=== PATIENT | male | born 1960 ===

== ENCOUNTER 2021-05-26 11:10 | Outpatient (REF) | payer MEDICARE, MEDICAID, SELFPAY ==
--- NOTE | ~2021-05-26 | XR_ITS ---
EXAMINATION: XR SHOULDER, RIGHT CLINICAL INFORMATION: Pain COMPARISON: None TECHNIQUE: AP external rotation, Grashey, scapular Y, and axillary views of the right shoulder. FINDINGS: There is a question of a lytic lesion in the right proximal humerus/greater tuberosity or possibly old trauma. This is unchanged from topogram from cervical spine CT March 2018. No fracture or dislocation is seen. There is arthritis at the glenohumeral and acromioclavicular joints. Soft tissues are unremarkable. There are old right-sided rib fractures. XR/XR shoulder RT min 2V IMPRESSION: Question lytic lesion in the right proximal humerus/greater tuberosity or old trauma. This appears unchanged from topogram from cervical spine CT March 2018. Arthritis.
--- NOTE | ~2021-05-26 | XR_ITS ---
EXAMINATION: XR RIBS, RIGHT CLINICAL INFORMATION: Pleura diameter. COMPARISON: None TECHNIQUE: 3 views of the right ribs were obtained. FINDINGS: Lungs are clear. No consolidation, pneumothorax, or pleural effusion. The cardiomediastinal silhouette and pulmonary vasculature are normal. Osseous structures are unremarkable. There are multiple old rib fractures visualized. There Is no acute fracture or bony abnormality. The soft tissues are normal. XR/XR ribs RT min 3V w CXR1V IMPRESSION: Unremarkable chest exam. Old right rib healed fractures. No acute rib fractures seen. There is mild spondylosis dorsal spine.
== END 2021-05-26 11:11 | disposition home or self-care (01) ==
LOC: HO.XRAY 11:10
PROVIDERS: PCP Internal Medicine Geriatric Medicine; Visit Provider Internal Medicine Geriatric Medicine
DX: G89.29 Other chronic pain (principal); M25.511 Pain in right shoulder; R07.81 Pleurodynia
CPT/HCPCS: 71101; 73030

== ENCOUNTER 2022-08-02 08:19 | Emergency (ER) | payer OTHER, SELFPAY ==
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
[2022-08-02 08:23] VITALS: BP 130/80; PULSE 75; O2SAT 100
[2022-08-02 08:25] VITALS: BP 130/70; PULSE 87; RESP 18; TEMP 36.2; O2SAT 97; BMI 24.7
[2022-08-02 09:29] VITALS: BP 130/74; PULSE 76; RESP 18; O2SAT 96
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
[2022-08-02 12:00] VITALS: BP 134/67; PULSE 66; RESP 18; O2SAT 96
[2022-08-02] MEDS: Acetaminophen 325 MG TABLET 975 MG PO (12:00)
== END 2022-08-02 12:38 | disposition home or self-care (01) ==
PROVIDERS: Emergency Provider Emergency Medicine; PCP Internal Medicine Geriatric Medicine
DX: S02.2XXA Fracture of nasal bones, initial encounter for closed fracture (principal); M54.50 Low back pain, unspecified; R51.9 Headache, unspecified; M54.2 Cervicalgia; R10.9 Unspecified abdominal pain; M54.6 Pain in thoracic spine; X58.XXXA Exposure to other specified factors, initial encounter; Y93.9 Activity, unspecified; Y92.9 Unspecified place or not applicable; Y99.9 Unspecified external cause status; Z79.899 Other long term (current) drug therapy
CPT/HCPCS: 70450; 71250; 72125; 74176; 99284

== ENCOUNTER 2023-01-29 06:43 | Emergency (ER) | payer OTHER, SELFPAY ==
[2023-01-29 06:49] VITALS: BP 127/78; PULSE 80; O2SAT 100; BMI 23.5
[2023-01-29 06:54] VITALS: BP 122/78; PULSE 76; RESP 18; TEMP 36.9; O2SAT 95
[2023-01-29 07:47] LABS: Appearance Urine Clear; Color Urine Yellow; Glucose Urine UA Negative (Negative); Leukocyte Esterase Urine Trace (Negative); Nitrite Urine Negative (Negative); PH 5.5 (5.0-9.0); Specific Gravity - Urine 1.015 (1.005-1.025); UMIC TRIGGER UACC YES; Urine Blood Negative (Negative); Urine Ketones Trace mg/dL (Negative); Urine Protein Trace mg/dL (Neg-Trace)
[2023-01-29 07:52] LABS: Bacteria Urine None Seen (None Seen); Hyaline Casts Urine 0-2 /LPF (0-2); RBC Urine 0-2 /HPF (0-2); Squamous Epithelial Cell Urine 0-2 /HPF (0-2); WBC Urine 0-5 /HPF (0-5)
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
[2023-01-29 15:28] LABS: Amphetamine Screen Urine Not Detected (Not Detect); Barbiturates, Urine Not Detected (Not Detect); Benzodiazepines Screen Urine Not Detected (Not Detect); Cannabinoid Screen Urine POSITIVE (Not Detect); Cocaine Screen Urine Not Detected (Not Detect); Fentanyl, urine Not Detected (Not Detect); Opiate Screen Urine Not Detected (Not Detect); Phencyclidine Screen Urine Not Detected (Not Detect)
== END 2023-01-29 09:18 | disposition left against medical advice (07) ==
PROVIDERS: Emergency Provider Internal Medicine
DX: F10.129 Alcohol abuse with intoxication, unspecified (principal); Y90.8 Blood alcohol level of 240 mg/100 ml or more; M79.10 Myalgia, unspecified site; I10 Essential (primary) hypertension; E11.9 Type 2 diabetes mellitus without complications; Z79.899 Other long term (current) drug therapy
CPT/HCPCS: 80307; 81001; 99282; 99283

== ENCOUNTER 2023-02-01 00:57 | Inpatient (IN) | payer OTHER, SELFPAY ==
[2023-02-01 01:32] VITALS: BP 138/94; PULSE 92; O2SAT 97; BMI 25.0
--- NOTE | 2023-02-01 01:32 | ECG_ITS ---
Test Reason : DIZZINESS Blood Pressure : / mmHG Vent. Rate : 088 BPM Atrial Rate : 088 BPM P-R Int : 144 ms QRS Dur : 076 ms QT Int : 352 ms P-R-T Axes : 053 -03 029 degrees QTc Int : 425 ms Normal sinus rhythm Normal ECG When compared with ECG of 25-AUG-2019 08:11, No significant change was found Referred By: Cyndie Velez Electronically Signed By:CORINNA HOFFMAN MD
--- NOTE | 2023-02-01 01:33 | ED_ITS ---
HPI - Psych General Chief Complaint: Psychiatric Symptoms Stated Complaint: Dizziness Time Seen by Provider: 02/01/23 01:28 Source: patient Mode of arrival: EMS Limitations: no limitations History of Present Illness HPI Narrative: Patient comes to the emergency room via EMS. Initially, EMS was called by the patient because he reported ?dizziness. EMS explains that the patient had been walking around the [place] for approximately 8 hours. When patient arrived to the emergency room, patient stated that the real reason that he called is because he is feeling suicidal, no homicidal ideation. No specific plans. Denies chest pain or shortness of breath or even dizziness, which was his original complain. Patient denies any head injury, denies falling. Patient admits that he has been drinking alcohol today Related Data Previous Rx's Medication Instructions Recorded amoxicillin 875 mg-potassium 1 tab PO Q12H 10 days #20 tabs 08/02/22 clavulanate 125 mg tablet naproxen 500 mg tablet 500 mg PO BID PRN pain 10 days #20 08/02/22 tabs Allergies Allergy/AdvReac Type Severity Reaction Status Date / Time sertraline [From ZOLOFT] Allergy Mild HEADACHES Unverified 07/11/20 15:40 Review of Systems Review of Systems: Constitutional : No Weight loss, No Fever, No Chills, No Night Sweats, No Fatigue, No Malaise ENT/Mouth : No Hearing loss, No Ear Pain, No Nasal Congestion, No Sinus Pain, No Hoarseness, No sore throat, No Rhinorrhea, No Swallowing Difficulty Eyes: No Eye Pain, No Swelling, No Redness, No Foreign Body, No Discharge, No Vision Changes Cardiovascular : No Chest Pain, No SOB, No Dyspnea on Exertion, No Orthopnea, No Edema, No Palpitations Respiratory : No Cough, No Sputum, No Wheezing, No Smoke Exposure, No Dyspnea Gastrointestinal : No Nausea, No Vomiting, No Diarrhea, No Constipation, No abdominal Pain, No Hematochezia, No Melena Genitourinary : no irregular bleeding, No Dysuria, No Urinary Frequency, No Hematuria, No Urinary Incontinence, No Urgency, No Flank Pain, No Urinary Flow Changes, No Hesitancy Musculoskeletal : No joint pain, No Myalgias, No Joint Swelling Skin : No Skin Lesions, No rash Neuro : No Weakness, No Numbness, No Paresthesias, No Loss of Consciousness, No Dizziness, No Headache Psych : No Anxiety/Panic, complaining of feeling suicidal, no homicidal ideation Heme/Lymph: No Bruising, No Bleeding,No Lymphadenopathy Endocrine : No Polyuria, No Polydipsia, No Temperature Intolerance [facility] Past Medical History Medical History Alcohol abuse Social History Social History Alcohol intake: current Alcohol intake frequency: 3 or more drinks per day Use of substances other than those prescribed or required for medical reasons: No Advance Directives: No Advance Directives Information Provided: Yes Physical Exam Vital Signs: Vital Signs: Last Vital Signs Temp 98.2 F 02/01/23 03:49 Pulse 93 02/01/23 03:49 Resp 14 02/01/23 03:49 BP 122/63 02/01/23 03:49 Pulse Ox 96 02/01/23 03:49 O2 Del Method Room Air 02/01/23 03:49 BMI result Body Mass Index 25.0 Const: Other: Appearance: Alert. Oriented X3. No acute distress. Eyes: Pupils equal, round and reactive to light. ENT: Pharynx normal. Neck: Normal inspection. Neck supple. No lymph nodes noted. No crepitus CVS: Normal heart rate and rhythm. Pulses normal. Normal S1 and S2 Respiratory: No respiratory distress. Breath sounds normal. No Wheezing. No ra les Abdomen: Soft and nontender. No rigidity. No distention. Skin: Skin warm and dry. Normal skin color. Normal skin turgor. Extremities: No lower extremity edema. No Lacerations. No Rash Neuro: Oriented X 3. No motor deficit. No sensory deficit. Moving all extremities. No slurred speech. CN 2 through 12 grossly intact Psych: calm, cooperative, normal affect Course Course Course Narrative: -labs pending -care team consult pending -physician observation status at 01:35 Medical Decision Making Medical Decision Making MDM Narrative: -magnesium is slightly decreased, 1.4, repleted with p.o. magnesium oxide 800 mg -care team pending Lab Data 02/01/23 02:10 02/01/23 02:10 Labs: Lab Results 02/01/23 02/01/23 02/01/23 Range/Units 02:10 02:10 02:10 WBC 7.0 (4.8-10.8) X10*3/uL RBC 4.13 L (4.60-5.80) X10*6/uL Hgb 12.1 L (14.0-18.0) g/dl Hct 36.2 L (42.0-52.0) % MCV 87.7 (80.0-98.0) fL MCH 29.3 (27.0-33.0) pg MCHC 33.4 (31.0-36.0) g/dl RDW 13.1 (11.0-16.0) % Plt Count 250 (160-400) X10*3/uL MPV 9.2 L (9.4-12.4) fL Immature Gran % (Auto) 0.3 (0.0-0.4) % Neut % (Auto) 58.8 (45-73) % Lymph % (Auto) 31.7 (20-40) % [place] % (Auto) 6.9 (2-11) % Eos % (Auto) 1.6 (0-4) % Baso % (Auto) 0.7 (0-2) % Lymph # (Auto) 2.2 (1.2-4.9) X10*3/uL [place] # (Auto) 0.5 (0.1-1.2) X10*3/uL Eos # (Auto) 0.1 (0.0-0.4) X10*3/uL Baso # (Auto) 0.1 (0.0-0.2) X10*3/uL Abs Immat Gran (auto) 0.02 (0.00-0.03) X10*3/uL Absolute Neuts (auto) 4.1 (2.0-8.3) x10*3/uL Absolute Nucleated RBC 0.000 (0.0-0.012) X10*3/uL Nucleated RBC % (auto) 0.0 (0.0-0.2) /100WBC Sodium 142 (135-145) mmol/L Potassium 4.2 (3.3-5.1) mmol/L Chloride 106 (96-108) mmol/L Carbon Dioxide 21 L (22-29) mmol/L Anion Gap 19 (12-20) BUN 24 H (9-16) mg/dL Creatinine 1.46 H (0.5-1.4) mg/dL Estim Creat Clear Calc TNP Estimated GFR 49 Random Glucose 121 H (60-115) mg/dL Calcium 8.8 (8.4-10.2) mg/dL Magnesium 1.4 L* (1.6-2.6) mg/dL Total Bilirubin 0.3 (0.0-1.0) mg/dL Direct Bilirubin < 0.2 (0.0-0.5) mg/dL AST 32 (5-37) U/L ALT 15 (0-40) U/L Alkaline Phosphatase 73 (39-117) U/L Troponin I High Sens 2.9 (<3.5-35.0) ng/L Total Protein 6.5 (6.5-8.0) g/dL Albumin 4.1 (3.5-5.0) g/dL Ethyl Alcohol 122 mg/dL COVID-19 ([facility]) (Negative) COVID-19 Clin Com 02/01/23 Range/Units 02:10 WBC (4.8-10.8) X10*3/uL RBC (4.60-5.80) X10*6/uL Hgb (14.0-18.0) g/dl Hct (42.0-52.0) % MCV (80.0-98.0) fL MCH (27.0-33.0) pg MCHC (31.0-36.0) g/dl RDW (11.0-16.0) % Plt Count (160-400) X10*3/uL MPV (9.4-12.4) fL Immature Gran % (Auto) (0.0-0.4) % Neut % (Auto) (45-73) % Lymph % (Auto) (20-40) % [place] % (Auto) (2-11) % Eos % (Auto) (0-4) % Baso % (Auto) (0-2) % Lymph # (Auto) (1.2-4.9) X10*3/uL [place] # (Auto) (0.1-1.2) X10*3/uL Eos # (Auto) (0.0-0.4) X10*3/uL Baso # (Auto) (0.0-0.2) X10*3/uL Abs Immat Gran (auto) (0.00-0.03) X10*3/uL Absolute Neuts (auto) (2.0-8.3) x10*3/uL Absolute Nucleated RBC (0.0-0.012) X10*3/uL Nucleated RBC % (auto) (0.0-0.2) /100WBC Sodium (135-145) mmol/L Potassium (3.3-5.1) mmol/L Chloride (96-108) mmol/L Carbon Dioxide (22-29) mmol/L Anion Gap (12-20) BUN (9-16) mg/dL Creatinine (0.5-1.4) mg/dL Estim Creat Clear Calc Estimated GFR Random Glucose (60-115) mg/dL Calcium (8.4-10.2) mg/dL Magnesium (1.6-2.6) mg/dL Total Bilirubin (0.0-1.0) mg/dL Direct Bilirubin (0.0-0.5) mg/dL AST (5-37) U/L ALT (0-40) U/L Alkaline Phosphatase (39-117) U/L Troponin I High Sens (<3.5-35.0) ng/L Total Protein (6.5-8.0) g/dL Albumin (3.5-5.0) g/dL Ethyl Alcohol mg/dL COVID-19 ([facility]) Negative (Negative) COVID-19 Clin Com See Note Discharge Plan Discharge Clinical Impression: Alcohol abuse, Suicidal ideation Patient Disposition: Still a Patient Prescriptions: No Action amoxicillin-pot clavulanate 875-125 mg tablet 1 tab PO Q12H 10 Days Qty: 20 0RF naproxen 500 mg tablet 500 mg PO BID PRN (Reason: pain) 10 Days Qty: 20 0RF Interventions: [place]-Suicide Risk Severity Scale Last Done: 02/01/23 01:50
--- OUTSIDE RECORDS SUMMARY | 2023-02-01 01:34 | XMS_ITS | Continuity of Care Document ---
Author Name Unknown Organization [facility] Address Unknown Care Team Providers Care High Pressure Operator Name Role Phone Pavan Zambrano MD, Asaf Yepez Primary Care Ph ysician Encounter [facility] [place] Date(s): 09/10/21 - 10/10/21 [facility] Attending Physician: AdmPrincess dow Admitting Physician: Princess Rudolph Referring Physician: AdmtrPrincess Allergies, Adverse Reactions, Alerts Substance Reaction Severity Status Zoloft Unknown Active Immunizations Given and Recorded Vaccine Date Status Refusal Reason influenza virus vaccine, inactivated 08/31/21 Give n influenza virus vaccine, inactivated 10/06/16 Lencho rded influenza virus vaccine, inactivated 08/08/10 Lencho rded tetanus/diphtheria/pertussis, acel(Tdap) 10/06/16 Recorded tetanus-diphtheria toxoids (Td) 11/04/10 Given tetanus-diphtheria toxoids (Td) 11/28/07 Recorded Hepatitis A-Hepatitis B Vaccine 11/05/09 Recorded Hepatitis A-Hepatitis B Vaccine 09/17/09 Recorded pneumococcal 23-valent vaccine 05/17/09 Recorded Measles/Mumps/Rubella Virus Vaccine 10/28/07 Recor ded Medications Aspirin 0 Refills, Maintenance Start Date: 11/18/10 Status: Ordered atorvastatin 10 mg oral tablet TAKE 1 TABLET BY MOUTH EVERY DAY Start Date: 08/30/21 Status: Ordered atorvastatin 10 mg oral tablet 1 tablet = 10 mg, By Mouth, Daily, # 30 tablet, 0 Refills, Maintenance, 08/30/21 12:53:00 EDT, Partial fill upon patient request if the prescription is for a schedule II opioid drug. Start Date: 08/30/21 Status: Ordered celecoxib 200 mg oral capsule TAKE 1 CAPSULE BY MOUTH EVERY DAY NEEDED Start Date: 08/30/21 Status: Ordered chlorproMAZINE 50 mg oral tablet TAKE 1 TABLET BY MOUTH AT BEDTIME Start Date: 08/30/21 Status: Ordered chlorproMAZINE 50 mg oral tablet TAKE 1 TABLET BY MOUTH AT BEDTIME Start Date: 08/30/21 Status: Ordered Colace sodium 100 mg oral capsule 1 capsule = 100 mg, By Mouth, 2 times a day, PRN for constipation, # 20 capsule, 0 Refills, Maintenance, Capsule Start Date: 12/01/10 Status: Ordered Crutches See Instructions, # 1 application, Refills 0, Tot. Refills 0, Maintenance, Use for comfort, 06/16/10 7:46:07 Start Date: 06/16/10 Status: Ordered docusate sodium 100 mg oral capsule 1 capsule = 100 mg, By Mouth, 2 times a day, # 28 capsule, 0 Refills, Maintenance, Capsule Start Date: 03/13/12 Stop Date: 03/27/12 Status: Ordered fluoxetine 15 mg oral tablet 2 tablet = 30 mg, By Mouth, Daily in AM, # 28 tablet, 1 Refills, Maintenance, Tablet Start Date: 06/07/12 Stop Date: 07/05/12 Status: Ordered FLUoxetine 20 mg oral capsule TAKE 1 CAPSULE BY MOUTH EVERY MORNING Start Date: 08/30/21 Status: Ordered FLUoxetine 20 mg oral capsule TAKE 1 CAPSULE BY MOUTH EVERY MORNING Start Date: 08/30/21 Status: Ordered folic acid 1 mg oral tablet 1 tablet = 1 mg, By Mouth, Daily, # 14 tablet, 1 Refills, Maintenance, Tablet Start Date: 06/07/12 Stop Date: 07/05/12 Status: Ordered gabapentin 100 mg oral capsule 100 mg, 1, capsule, By Mouth, 3 times a day, # 90 capsule, Refills 0, Tot. Refills 0, Maintenance, 09/02/21 14:49:00 EST, Route to Pharmacy Electronically, [facility], Partial fill uponpatient request if the prescription is for a schedu... Start Date: 09/02/21 Stop Date: 10/02/21 Status: Ordered Insulin Aspart Subcutaneous Infusion, mL, 0 Refills, Maintenance Start Date: 11/18/10 Status: Ordered insulin aspart-insulin aspart protamine 30 u-70 u/ml subcutaneous suspension = 10 units, Subcutaneous Injection, 2 times a day, # 10 mL, 0 Refills, Maintenance, Suspension Start Date: 03/12/12 Status: Ordered lisinopril 20 mg oral tablet 1 tablet = 20 mg, By Mouth, Daily, # 14 tablet, 1 Refills, Maintenance, Tablet Start Date: 06/07/12 Stop Date: 07/05/12 Status: Ordered lisinopril 20 mg oral tablet TAKE 1 TABLET BY MOUTH ONCE DAILY Start Date: 08/30/21 Status: Ordered lisinopril 20 mg oral tablet TAKE 1 TABLET BY MOUTH ONCE DAILY Start Date: 08/30/21 Status: Ordered melatonin 5 mg tablet TAKE 2 TABLETS BY MOUTH ONCE DAILY WITH MEALS Start Date: 08/30/21 Status: Ordered melatonin 5 mg tablet TAKE 2 TABLETS BY MOUTH ONCE DAILY WITH MEALS Start Date: 08/30/21 Status: Ordered melatonin 5 mg tablet TAKE 2 TABLETS BY MOUTH ONCE DAILY WITH MEALS Start Date: 08/30/21 Status: Ordered meloxicam 7.5 mg oral tablet TAKE 1 TABLET BY MOUTH EVERY DAY Start Date: 08/30/21 Status: Ordered metFORMIN 1000 mg oral tablet TAKE 1 TABLET BY MOUTH TWICE DAILY IN THE MORNING AND IN THE EVENING WITH MEALS Start Date: 08/30/21 Status: Ordered metFORMIN 1000 mg oral tablet TAKE 1 TABLET BY MOUTH TWICE DAILY IN THE MORNING AND IN THE EVENING WITH MEALS Start Date: 08/30/21 Status: Ordered mirtazapine 7.5 mg oral tablet TAKE 1 TABLET BY MOUTH AT BEDTIME Start Date: 08/30/21 Status: Ordered mirtazapine 7.5 mg oral tablet TAKE 1 TABLET BY MOUTH AT BEDTIME Start Date: 08/30/21 Status: Ordered multivitamin Vitamin B Complex oral tablet 1 tablet, By Mouth, Daily in AM, # 30 tablet, 0 Refills, Maintenance, Tablet Start Date: 09/28/10 Stop Date: 10/28/10 Status: Ordered omeprazole 20 mg oral enteric coated capsule TAKE 1 CAPSULE BY MOUTH EVERY DAY 30-60 MINUTES BEFORE A MEAL Start Date: 08/30/21 Status: Ordered omeprazole 20 mg oral enteric coated capsule TAKE 1 CAPSULE BY MOUTH EVERY DAY 30-60 MINUTES BEFORE A MEAL Start Date: 08/30/21 Status: Ordered quetiapine 50 mg oral tablet 1 tablet = 50 mg, By Mouth, Daily at bedtime, # 14 tablet, 1 Refills, Maintenance, Tablet Start Date: 06/07/12 Stop Date: 07/05/12 Status: Ordered simvastatin 40 mg oral tablet 1 tablet = 40 mg, By Mouth, Daily at bedtime, 0 Refills, Maintenance Start Date: 03/12/12 Status: Ordered Vitamin B-12 1000 mcg oral tablet TAKE 1 TABLET BY MOUTH EVERY DAY Start Date: 08/30/21 Status: Ordered Vitamin B-12 1000 mcg oral tablet 1,000 mcg, 1, tablet, By Mouth, Daily, # 30 tablet, Refills 0, Maintenance, 08/30/21 12:53:00 EDT, Partial fill upon patient request if the prescription is for a schedule II opioid drug. Start Date: 08/30/21 Status: Ordered Vince See Instructions, # 1 each, Maintenance, rolling vince, 09/02/21 14:58:00 EST, Supply Start Date: 09/02/21 Status: Ordered zolpidem 10 mg oral tablet 1 tablet = 10 mg, By Mouth, Daily at bedtime, PRN for sleep, 0 Refills, Maintenance, Tablet Start Date: 03/12/12 Status: Ordered
--- OUTSIDE RECORDS SUMMARY | 2023-02-01 01:34 | XMS_ITS | Continuity of Care Document ---
Author Name Unknown Organization [facility] ter Address [address] [place] [id number]- Care Team Providers Care Mail Sorter And Delivery Name Role Phone Pavan Zambrano MD, Asaf Yepez Primary Care Ph ysician [place] [facility] [place] - 05/25/[address] [address]- Encounter Diagnosis Alcohol intoxication(Final) - 05/25/22 Discharge Disposition: A-D/C Home Attending Physician: Jn Raines DO Admitting Physician: Jn Raines DO Referring Physician: Not on Staff, Referring MD Allergies, Adverse Reactions, Alerts Substance Reaction Severity Status Zoloft Unknown Active Immunizations Given and Recorded Vaccine Date Status Refusal Reason influenza virus vaccine, inactivated 08/31/21 Give n influenza virus vaccine, inactivated 10/06/16 Elncho rded influenza virus vaccine, inactivated 08/08/10 Lencho [...] 09/02/21 14:49:00 EST, Route to Pharmacy Electronically, [facility], Partial fill uponpatient request [...] opioid drug. Start Date: 08/30/21 Status: Ordered Walker See Instructions, # 1 each, Maintenance, rolling walker, 09/02/21 14:58:00 EST, Supply Start Date: 09/02/21 Status: Ordered zolpidem 10 mg oral tablet 1 tablet = 10 mg, By Mouth, Daily at bedtime, PRN for sleep, 0 Refills, Maintenance, Tablet Start Date: 03/12/12 Status: Ordered Vital Signs Most recent to oldest [Reference Range]: 1 2 Height 171 cm (05/25/22 5:17 AM) 171 cm (05/25/22 1:27 AM) Weight 82.8 kg (05/25/22 5:17 AM) 82.8 kg (05/25/22:27 AM) Oxygen Saturation [94-100 %] 93 % *L* (05/25/22 5:17 AM) 95 % (05/25/22: AM) Pulse Rate [55-90 bpm] 70 bpm (05/25/22 5:17 AM) 88 bpm (05/25/22:27 AM) Body Mass Index [18.5-24.99] 28.32 *H* (05/25/22 5: AM) Blood Pressure [90-138/55-84 mm Hg] 120/ 71mm Hg (05/25/22 5:17 AM) 115/68mm Hg (05/25/22 1:27 AM) Respiratory Rate [16-30 br/min] 20 br/mi n (05/25/22 5:17 AM) 21 br/min (05/25/22 1:27 AM) Temperature [96.8-100.4 DegF] 98.2 DegF (05/25/22 5:17 AM) 98.1 DegF (05/25/22 1:27 AM) Mode of Delivery (Oxygen) Room air (05/25/22 5:17 AM) Room air (05/25/22 1:27 AM) Blood pressure sites Arm, right (05/25/22 5:17 AM) Temperature Route Oral (05/25/22 5:17 AM) Oral (05/25/22 1:27 AM)
--- OUTSIDE RECORDS SUMMARY | 2023-02-01 01:34 | XMS_ITS | Continuity of Care Document ---
Author Name Unknown Organization [facility] ter Address [address] [place] [address]- Care Team Providers Care Remnants Cutter Name Role Phone Asaf Frazier MD Primary Care Ph ysician Encounter [facility] [place] Date(s): 04/12/21 - 04/14/[address] [address]- Encounter Diagnosis Suicide ideation(Final) - 04/12/21 Acute psychosis(Final) - 04/12/21 Sinus tachycardia(Final) - 04/12/21 Suicide attempt(Final) - 04/12/21 Discharge Disposition: A-D/C Home Attending Physician: Steven Kearney MD Admitting Physician: Steven Kearney MD Referring Physician: Not on Staff, Referring MD Allergies, Adverse Reactions, Alerts Substance Reaction Severity Status NKA Active Medications lisinopril 20 mg oral tablet 20 mg, Tablet, By Mouth, 04/14/21 9:00:00 EDT Start Date: 04/14/21 Stop Date: 04/14/21 Status: Completed Vital Signs Most recent to oldest [Reference Range]: 1 2 3 Oxygen Saturation [94-100 %] 98 % (04/14/21 7:45 AM) 98 % (04/14/21 2:20 AM) 98 % (04/13/21 1:48 PM) Pulse Rate [55-90 bpm] 76 bpm (04/14/21 7:45 AM) 68 bpm (04/14/21 2:20 AM) 83 bpm (04/13/21 1:48 PM) Blood Pressure [90-138/55-84 mm Hg] 135/82mm Hg (04/14/21 8:35 AM) 135/82mm Hg (04/14/21 7:45 AM) 141/79mm Hg *H* (04/14/21 2:20 AM) Respiratory Rate [16-30 br/min] 16 br/min (04/14/21 7:45 AM) 16 br/min (04/14/21 2:20 AM) 18 br/min (04/13/21 1:48 PM) Temperature [96.8-100.4 DegF] 98.6 DegF (04/14/21 7:45 AM) 98.3 DegF (04/14/21 2:20 AM) 98.2 DegF (04/13/21 1:48 PM) Mode of Delivery (Oxygen) Room air (04/14/21 7:45 AM) Room air (04/14/21 2:20 AM) Room air (04/13/21 1:48 PM) Blood pressure sites Arm, right (04/14/21 7:45 AM) Arm, right (04/14/21 2:20 AM) Arm, right (04/13/21 1:48 PM) Temperature Route Oral (04/14/21 7:45 AM) Oral (04/14/21 2:20 AM) Oral (04/13/21 1:48 PM)
--- OUTSIDE RECORDS SUMMARY | 2023-02-01 01:34 | XMS_ITS | Continuity of Care Document ---
Author Name Unknown Organization [facility] ter Address [address] [place] [id number]- Care Team Providers Care Bar Waiter/Waitress Name Role Phone Pavan Zambrano MD, Asaf Yepez Primary Care Ph ysician Encounter [facility] [place] Date(s): 09/14/21 - 09/15/[address] [address]- Encounter Diagnosis Alcohol intoxication(Final) - 09/14/21 Discharge Disposition: A-D/C Home Attending Physician: Spring Bear MD Admitting Physician: Spring Bear MD Referring Physician: Not on Staff, Referring [...] Measles/Mumps/Rubella Virus Vaccine 10/28/07 Recor ded Medications acetaminophen 325 mg oral tablet 650 mg, By Mouth, Every 4 hours, for 30 days, # 360 tablet, Refills 0, Tot. Refills 0, Acute 10/02/21 14:49:00 EST, 09/02/21 14:49:00 EST, Route to Pharmacy Electronically, [facility], Partial fill upon patient request if the prescriptio... Start Date: 09/02/21 Stop Date: 10/02/21 Status: Ordered Aspirin 0 Refills, Maintenance Start Date: 11/18/10 [...] 09/02/21 14:49:00 EST, Route to Pharmacy Electronically, [facility], Partial fill uponpatient request if the prescription is for a schedu... Start Date: 09/02/21 Stop Date: 10/02/21 Status: Ordered ibuprofen 600 mg oral tablet 600 mg, 1, tablet, By Mouth, 3 times a day, for 30 days, # 90 tablet, Refills 0, Tot. Refills 0, Acute 10/02/21 14:49:00 EST, 09/02/21 14:49:00 EST, Route to Pharmacy Electronically, [facility], Partial fill upon patient request if the p... Start Date: 09/02/21 Stop Date: 10/02/21 Status: [...] opioid drug. Start Date: 08/30/21 Status: Ordered Joseph See Instructions, # 1 each, Maintenance, rolling walker, 09/02/21 14:58:00 EST, Supply Start Date: 09/02/21 Status: Ordered zolpidem 10 mg oral tablet 1 tablet = 10 mg, By Mouth, Daily at bedtime, PRN for sleep, 0 Refills, Maintenance, Tablet Start Date: 03/12/12 Status: Ordered Vital Signs Most recent to oldest [Reference Range]: 1 2 3 Oxygen Saturation [94-100 %] 98 % (09/15/21 2:08 AM) 97 % (09/14/21 11:08 PM) 95 % (09/14/21 6:50 PM) Pulse Rate [55-90 bpm] 79 bpm (09/15/21 2:08 AM) 89 bpm (09/14/21 11:08 PM) 80 bpm (09/14/21 7:18 PM) Blood Pressure [90-138/55-84 mm Hg] 122/74mm Hg (09/15/21 2:08 AM) 123/89mm Hg (09/14/21 11:08 PM) 123/80mm Hg (09/14/21 7:18 PM) Respiratory Rate [16-30 br/min] 18 br/min (09/15/21 2:08 AM) 18 br/min (09/14/21 11:08 PM) 22 br/min (09/14/21 6:50 PM) Temperature [96.8-100.4 DegF] 98.8 DegF (09/15/21 2:08 AM) 99.0 DegF (09/14/21 6:50 PM) Mode of Delivery (Oxygen) Room air (09/15/21 2:08 AM) Room air (09/14/21 11:08 PM) Room air (09/14/21 6:50 PM) Blood pressure sites Arm, right (09/14/21 6:50 PM) Temperature Route Axillary (09/15/21 2:08 AM) Oral (09/14/21 6:50 PM)
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
--- OUTSIDE RECORDS SUMMARY | 2023-02-01 01:35 | XMS_ITS | Continuity of Care Document ---
Author Name Unknown Organization [facility] Address Unknown Care Team Providers Care Nylon Hot Wire Cutter Name Role Phone Pavan Zambrano MD, Asaf Yepez Primary Care Ph ysician [place] [facility] [place](s): 09/10/21 - 10/10/21 [facility] Attending Physician: AdmPrincess dow Admitting Physician: AdmtrPrincess Referring Physician: Admtr, Ar8 Allergies, Adverse Reactions, Alerts Substance Reaction Severity [...] 09/02/21 14:49:00 EST, Route to Pharmacy Electronically, [facility], Partial fill uponpatient [...]
[2023-02-01 02:16] LABS: Basophils Absolute Auto 0.1 X10*3/uL (0.0-0.2); Basophils Percent Auto 0.7 % (0-2); Eosinophils Absolute Auto 0.1 X10*3/uL (0.0-0.4); Eosinophils Percent Auto 1.6 % (0-4); Hematocrit 36.2 % (42.0-52.0); Hemoglobin 12.1 g/dl (14.0-18.0); Imm Gran Abs Auto 0.02 X10*3/uL (0.00-0.03); Imm Gran Pct Auto 0.3 % (0.0-0.4); Lymphocytes Absolute Auto 2.2 X10*3/uL (1.2-4.9); Lymphocytes Percent Auto 31.7 % (20-40); MANUAL DIFF FLAG NO; Mean Corpuscular HGB Conc 33.4 g/dl (31.0-36.0); Mean Corpuscular Hemoglobin 29.3 pg (27.0-33.0); Mean Corpuscular Volume 87.7 fL (80.0-98.0); Mean Platelet Volume 9.2 fL (9.4-12.4); Monocytes Absolute Auto 0.5 X10*3/uL (0.1-1.2); Monocytes Percent Auto 6.9 % (2-11); Neutrophils Absolute Auto 4.1 x10*3/uL (2.0-8.3); Neutrophils Percent Auto 58.8 % (45-73); Platelet Count 250 X10*3/uL (160-400); Red Blood Count 4.13 X10*6/uL (4.60-5.80); Red Cell Distribution Width 13.1 % (11.0-16.0)
[2023-02-01 02:26] LABS: COVID-19 Test Negative (Negative); IDNOW Serial# BCCEAD1C
[2023-02-01 02:35] LABS: Troponin-I High Sensitivity 2.9 ng/L (<3.5-35.0)
[2023-02-01 02:36] LABS: Alanine Aminotransferase 15 U/L (0-40); Albumin Level 4.1 g/dL (3.5-5.0); Alkaline Phosphatase 73 U/L (39-117); Anion Gap 19 (12-20); Aspartate Amino Transferase 32 U/L (5-37); Bilirubin Direct < 0.2 mg/dL (0.0-0.5); Bilirubin Total 0.3 mg/dL (0.0-1.0); Blood Urea Nitrogen 24 mg/dL (9-16); Calcium 8.8 mg/dL (8.4-10.2); Carbon Dioxide 21 mmol/L (22-29); Chloride 106 mmol/L (96-108); Estimated Glomerular Filt Rate 49; Ethanol 122 mg/dL; Glucose Random 121 mg/dL (60-115); Magnesium 1.4 mg/dL (1.6-2.6); Potassium 4.2 mmol/L (3.3-5.1); Sodium 142 mmol/L (135-145); Total Protein 6.5 g/dL (6.5-8.0)
--- NOTE | 2023-02-01 02:39 | PC.NURSE ---
pt c/o dizziness and SI, ETOH+
[2023-02-01 03:49] VITALS: BP 122/63; PULSE 93; RESP 14; TEMP 36.8; O2SAT 96
--- NOTE | 2023-02-01 04:52 | MHC.EDTECH ---
pt belomgimgs placed in laundry closet
[2023-02-01] MEDS: Magnesium Oxide 400 MG TABLET 800 MG PO (05:45)
[2023-02-01 06:19] LABS: Appearance Urine Clear; Color Urine Yellow; Glucose Urine UA Negative (Negative); Leukocyte Esterase Urine Small (1+) (Negative); Nitrite Urine Negative (Negative); PH 5.5 (5.0-9.0); UMIC TRIGGER UACC YES; Urine Blood Negative (Negative); Urine Ketones Trace mg/dL (Negative); Urine Protein 30 (1+) mg/dL (Neg-Trace)
[2023-02-01 06:32] LABS: Amphetamine Screen Urine Not Detected (Not Detect); Barbiturates, Urine Not Detected (Not Detect); Benzodiazepines Screen Urine Not Detected (Not Detect); Cannabinoid Screen Urine Not Detected (Not Detect); Cocaine Screen Urine Not Detected (Not Detect); Fentanyl, urine Not Detected (Not Detect); Opiate Screen Urine Not Detected (Not Detect); Phencyclidine Screen Urine Not Detected (Not Detect)
[2023-02-01 06:40] LABS: Bacteria Urine None Seen (None Seen); RBC Urine 0-2 /HPF (0-2); UACC Culture Trigger YES
[2023-02-01 06:47] VITALS: BP 100/54; PULSE 68; RESP 14; TEMP 36.6; O2SAT 94
[2023-02-01 10:50] LABS: Anion Gap 15 (12-20); Blood Urea Nitrogen 22 mg/dL (9-16); Calcium 8.8 mg/dL (8.4-10.2); Carbon Dioxide 25 mmol/L (22-29); Chloride 106 mmol/L (96-108); Creatinine Clr Calc Pharmacy 76.5; Estimated Glomerular Filt Rate > 60; Glucose Random 134 mg/dL (60-115); Potassium 4.5 mmol/L (3.3-5.1); Sodium 141 mmol/L (135-145)
[2023-02-01 11:26] VITALS: BP 125/79; PULSE 63; RESP 16; TEMP 36.8; O2SAT 97
--- NOTE | 2023-02-01 11:26 | PC.NURSE ---
Assumed care of pt, 1:1 sitter at bedside. Pt sleeping at this time, in nad, resp even, nonlaboured.
--- NOTE | 2023-02-01 13:18 | PC.NURSE ---
PT ENDORSES RECENT SI WITHOUT A PLAN, DISTANT HX OF ATTEMPT. RECENT INC DEPRESSION R/T INC ETOH USE. QUIET AT THIS TIME, COOPERATIVE, ANSWERING QUESTIONS APPROPRIATELY. REFUSING LUNCH, REPORTS RECENT REDUCED APETITE. MED REC COMPLETED. SEEN BY CARE TEAM.
[2023-02-01] MEDS: FLUoxetine HCl 20 MG CAPSULE PO (15:15)
[2023-02-01] MEDS: Cyanocobalamin (Vitamin B-12) 1,000 MCG TABLET 1000 MCG PO (15:15)
[2023-02-01 15:46] VITALS: BP 131/81; PULSE 66; RESP 16; TEMP 36.7; O2SAT 98
--- NOTE | 2023-02-01 18:07 | MHC.CARE ---
Patient's information faxed to [facility], they do not have beds today. Recovery Team will continue bedsearch, alternatively patient can be presented to [facility], they do have beds available tonight--fax form.
--- NOTE | 2023-02-01 19:00 | MHC.EDTECH ---
pt ate 100 % of super ,drank 720 ml fluids ,pt sleeping ,sitter at bedside .
--- NOTE | 2023-02-01 20:00 | MHC.CARE ---
Clinician checked in with Milind who reported not wanting to go to respite. He reported wanting to go to Detox then go to [facility]
--- NOTE | 2023-02-01 20:30 | PC.NURSE ---
spoke with care team, detox bed search will continue tomorrow. pt requesting detox, not respite.
[2023-02-01] MEDS: diphenhydrAMINE HCL 25 MG CAPSULE 50 MG PO (21:14)
[2023-02-01] MEDS: metFORMIN HCl 1,000 MG TABLET 1000 MG PO (21:15)
[2023-02-01] MEDS: chlorproMAZINE HCl 100 MG TABLET PO (21:15)
[2023-02-01 22:02] LABS: Glucose, Whole Blood 157 mg/dL (60-115)
[2023-02-02 06:02] VITALS: BP 104/73; PULSE 94; RESP 18; TEMP 36.2; O2SAT 96
--- NOTE | 2023-02-02 06:30 | PC.NURSE ---
Patient slept through the night, no distress observed/reported, Latvian speaking primarily, care team saw the patient, referred to recovery team for detox help, patient will be assessed by recovery team, med rec completed/pending provider's approval, POC at 2158 is 157, vss, behavior appropriate, will continue to monitor.
[2023-02-02 09:20] VITALS: BP 144/92; PULSE 130; RESP 20; TEMP 36.7; O2SAT 96
[2023-02-02] MEDS: metFORMIN HCl 1,000 MG TABLET 1000 MG PO ×2 (09:29→20:30)
[2023-02-02] MEDS: lisinopriL 20 MG TABLET PO (09:29)
[2023-02-02] MEDS: Omeprazole 20 MG CAPSULE.DR PO (09:30)
[2023-02-02] MEDS: Cyanocobalamin (Vitamin B-12) 1,000 MCG TABLET 1000 MCG PO (09:30)
[2023-02-02] MEDS: FLUoxetine HCl 20 MG CAPSULE PO (09:30)
[2023-02-02] MEDS: Atorvastatin Calcium 10 MG TABLET PO (09:30)
--- NOTE | 2023-02-02 13:17 | PC.NURSE ---
Pt reporting homelessness with feelings of SI. Ate meals. Sleeping. No dangerous behaviors noted.
--- NOTE | 2023-02-02 13:46 | MHC.RECOVSUP ---
Referral sent to [facility].
--- NOTE | 2023-02-02 16:22 | MHC.RECOVSUP ---
Pt declined from [facility] due to SI during phone screen. Care team aware.
[2023-02-02] MEDS: chlorproMAZINE HCl 100 MG TABLET PO (20:30)
[2023-02-02] MEDS: diphenhydrAMINE HCL 25 MG CAPSULE 50 MG PO (20:30)
[2023-02-03 06:33] VITALS: BP 90/54; PULSE 76; RESP 17; TEMP 36.2; O2SAT 97
--- NOTE | 2023-02-03 06:50 | PC.NURSE ---
Patient slept through the night, no distress observed/reported, Upper Sorbian speaking primarily, medication compliant, disposition per care team is section 12 inpatient bed search, behavior non concerning, will continue to monitor.
[2023-02-03 07:43] VITALS: BP 116/78; PULSE 116; RESP 15; TEMP 36.6; O2SAT 98
[2023-02-03] MEDS: lisinopriL 20 MG TABLET PO (09:51)
[2023-02-03] MEDS: Atorvastatin Calcium 10 MG TABLET PO (09:51)
[2023-02-03] MEDS: FLUoxetine HCl 20 MG CAPSULE PO (09:51)
[2023-02-03] MEDS: Omeprazole 20 MG CAPSULE.DR PO (09:51)
[2023-02-03] MEDS: metFORMIN HCl 1,000 MG TABLET 1000 MG PO ×2 (09:51→21:22)
[2023-02-03] MEDS: Cyanocobalamin (Vitamin B-12) 1,000 MCG TABLET 1000 MCG PO (09:51)
--- NOTE | 2023-02-03 09:57 | PC.NURSE ---
Pt resting in bed, respirations even and unlabored. Plan for admission today to [facility]. Medicated per the DEC. Pt states feeling unwell and reporting depression.
[2023-02-03 15:30] VITALS: BP 112/77; PULSE 114; RESP 18; TEMP 36.4; O2SAT 96
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
[2023-02-03 18:55] VITALS: BMI 24.7
[2023-02-03] MEDS: diphenhydrAMINE HCL 25 MG CAPSULE 50 MG PO (21:22)
[2023-02-03] MEDS: chlorproMAZINE HCl 100 MG TABLET PO (21:22)
[2023-02-03] MEDS: Acetaminophen 325 MG TABLET 650 MG PO (21:23)
[2023-02-04 07:00] VITALS: BMI 24.7
[2023-02-04 09:09] VITALS: BP 113/71; PULSE 101; RESP 20; TEMP 36.4; O2SAT 94
[2023-02-04] MEDS: lisinopriL 20 MG TABLET PO (09:10)
[2023-02-04] MEDS: Atorvastatin Calcium 10 MG TABLET PO (09:11)
[2023-02-04] MEDS: Omeprazole 20 MG CAPSULE.DR PO (09:11)
[2023-02-04] MEDS: Cyanocobalamin (Vitamin B-12) 1,000 MCG TABLET 1000 MCG PO (09:11)
[2023-02-04] MEDS: FLUoxetine HCl 20 MG CAPSULE PO (09:12)
[2023-02-04] MEDS: metFORMIN HCl 1,000 MG TABLET 1000 MG PO ×2 (09:12→21:04)
[2023-02-04 09:38] LABS: Estimated Average Glucose 137 mg/dL; Hemoglobin A1c % 6.4 %
[2023-02-04 11:33] LABS: Alanine Aminotransferase 18 U/L (0-40); Albumin Level 3.6 g/dL (3.5-5.0); Alkaline Phosphatase 79 U/L (39-117); Aspartate Amino Transferase 19 U/L (5-37); Bilirubin Direct 0.1 mg/dL (0.0-0.5); Bilirubin Total 0.3 mg/dL (0.0-1.0); Cholesterol 129 mg/dL; HDL Cholesterol 39 mg/dL; LDL Cholesterol Calculated 58 mg/dl; Total Protein 5.7 g/dL (6.5-8.0); Triglycerides 163 mg/dL
[2023-02-04 12:01] LABS: Folate 6.1 ng/mL (> or = 4.0); Free T4 (Free Thyroxine) 1.03 ng/dL (0.71-1.85); Vitamin B12 1934 pg/mL (200-900)
--- NOTE | 2023-02-04 15:14 | P.HPPS_ITS ---
HPI Date of Service: 02/04/23 Chief Complaint: SI/depression HPI Narrative: pt released from [facility] last month (01/15/23). ex-GF let him stay with her but said he had to leave after 2 weeks. he began drinking right away. prior to admission he states he attempted to overdose on some medications, but she wouldn't allow him to have the medications. he had urges to cut himself, and he decided to call 911 rather than do that. the police came and brought him to the hospital. he is now homeless. per CARE team lindsey, pt contacted 911 11/26 SI and was intoxicated and circumambulating the [employer] station for 8 hours prior to calling. reported to CARE team staff he hears AH if he doesn't take his meds. takes thorazine 50 and prozac 20. on interview with , pt agreeable to continue thorazine 50 at HS and to increase prozac from 20 mg daily to 40 for depression and anxiety. will restart naltrexone on wednesday and continue with CIWA-driven ativan detox. Past Psychiatric History: hosps: about 8 prior SA: reports one attempt via hanging in 1994 SIB: h/o cutting since 1992, through about 2 months ago. outpt Tx: has a therspit but hasn't seen her recently. no prescriber since getting out of intermediate last month. Medical Evaluation Reviewed: Yes [facility] Medical History Alcohol abuse Narrative: DM GERD lipids HTN arthritis Family History: father, brothers - bipolar disorder, schizophrenia Social History: got out of intermediate last month after a 6 month incarceration. homeless. Substance History: alcohol - every other day, 20-25 nips. cannabis - occasional tobacco - 1 ppd denies use of other substances reports h/o detoxes and rehabs Trauma History: found his father having completed suicide, hanged himself. Diagnostics Vital Signs (24Hr): Vital Signs - 24 hr 02/03/23 15:30 02/04/23 09:09 Temperature 97.5 F 97.6 F Pulse Rate 114 H 101 H Respiratory Rate 18 20 Blood Pressure 112/77 113/71 Pulse Oximetry 96 94 Oxygen Delivery Method Room Air Room Air BMI result Body Mass Index 24.7 Labs 02/01/23 02:10 02/01/23 10:09 Labs: Laboratory Results - last 48 hr 02/04/23 02/04/23 08:45 11:00 Estimat Average Glucose 137 Hemoglobin A1c % 6.4 Total Bilirubin 0.3 Direct Bilirubin 0.1 AST 19 ALT 18 Alkaline Phosphatase 79 Total Protein 5.7 L Albumin 3.6 Triglycerides 163 Cholesterol 129 LDL Cholesterol, Calc 58 HDL Cholesterol 39 Vitamin B12 1934 H Folate 6.1 TSH 0.80 Free T4 1.03 Meds/Allergies Meds Home Medications Medication Instructions Recorded Confirmed Type chlorpromazine 100 mg tablet 100 mg PO BEDTIME 02/01/23 02/01/23 History cyanocobalamin (vitamin B-12) 1,000 mcg PO QAM 02/01/23 02/01/23 History 1,000 mcg tablet diphenhydramine HCl 50 mg capsule 50 mg PO BEDTIME 02/01/23 02/01/23 History (Banophen) fluoxetine 20 mg capsule 20 mg PO QAM 02/01/23 02/01/23 History lisinopril 20 mg tablet 20 mg PO DAILY 02/01/23 02/01/23 History metformin 1,000 mg tablet 1,000 mg PO BID 02/01/23 02/01/23 History pantoprazole 40 mg tablet,delayed 40 mg PO DAILY 02/01/23 02/01/23 History release simvastatin 20 mg tablet 20 mg PO DAILY 02/01/23 02/01/23 History Allergies Allergies Allergy/AdvReac Type Severity Reaction Status Date / Time sertraline [From ZOLOFT] Allergy Mild HEADACHES Unverified 07/11/20 15:40 Mental Status Exam Mental Status Exam Narrative: calm, cooperative, lithuanian speaking only. street clothes, adequately dressed and groomed. no PMA/PMR. cooperative. speech soft and mildly slowed, monotone. thoughts linear and logical. affect constricted, normo-intense, non- labile. mood a little better. denies SI/SIBI/HI/AH. reports AH in the evening/NOC. Assessment & Plan Assessment & Plan (1) Alcohol abuse: Status: Acute Code(s): F10.10 - Alcohol abuse, uncomplicated (2) Depression, unspecified: Status: Acute Code(s): F32.A - Depression, unspecified Plan continue thorazine 50 at HS, with thorazine 25 PRN. increase prozac to 40 mg to target anx/dep. start naltrexone on wednesday for alcohol use disorder. Patient educated on: diagnosis, medication risk/benefits and substance abuse Reason for continued inpatient stay Substantial Risk for: harm to self, inability to function and rapid deco mpensation Statement Statement: I have reviewed the history and physical and performed a pertinent examination on my patient. No changes have occurred unless specified. If the History and Physical was not performed prior to admission, the Hospitalist's service will be consulted for completing the admission physical. Time Spent With Patient Time: Total time managing care of this patient today __55__ minutes.
[2023-02-04 15:55] VITALS: BP 121/69; PULSE 87; RESP 18; TEMP 36.6; O2SAT 95
[2023-02-04] MEDS: Acetaminophen 325 MG TABLET 650 MG PO ×2 (15:56→21:01)
[2023-02-04 20:49] VITALS: BP 136/81; PULSE 77; RESP 18; TEMP 36.1; O2SAT 98
[2023-02-04] MEDS: chlorproMAZINE HCl 100 MG TABLET 50 MG PO (21:03)
[2023-02-04] MEDS: LORazepam 1 MG TABLET PO (21:04)
[2023-02-05 08:00] VITALS: BP 113/70; PULSE 78; RESP 16; TEMP 36.2; O2SAT 98
[2023-02-05] MEDS: lisinopriL 20 MG TABLET PO (08:37)
[2023-02-05] MEDS: FLUoxetine HCl 20 MG CAPSULE 40 MG PO (08:37)
[2023-02-05] MEDS: Atorvastatin Calcium 10 MG TABLET PO (08:37)
[2023-02-05] MEDS: Cyanocobalamin (Vitamin B-12) 1,000 MCG TABLET 1000 MCG PO (08:38)
[2023-02-05] MEDS: Omeprazole 20 MG CAPSULE.DR PO (08:38)
[2023-02-05] MEDS: metFORMIN HCl 1,000 MG TABLET 1000 MG PO ×2 (08:38→20:41)
[2023-02-05] MEDS: Acetaminophen 325 MG TABLET 650 MG PO (08:45)
--- NOTE | 2023-02-05 10:53 | P.PNPSI_ITS ---
Subjective Subjective Date of Service: 02/05/23 Reason For Visit: SI/depression Subjective Notes: Conditional Voluntary Interim History: Pt reports feeling better. He reports feeling more rested. he also rpeorts feeling more optimisitc about his future and less depressed. He denies SI/HI. pt met with SANTOS Fernando who explained that there is a bed at [facility] and he can go from there to [facility] once bed is open. Medication Compliance: Yes Side effects from medications: No Attending Groups: Intermittent Review of Systems Review of Systems Constitutional : No Weight loss, No Fever, No Chills, No Night Sweats, No Fatigue, No Malaise ENT/Mouth : No Hearing loss, No Ear Pain, No Nasal Congestion, No Sinus Pain, No Hoarseness, No sore throat, No Rhinorrhea, No Swallowing Difficulty Eyes: No Eye Pain, No Swelling, No Redness, No Foreign Body, No Discharge, No Vision Changes Cardiovascular : No Chest Pain, No SOB, No Dyspnea on Exertion, No Orthopnea, No Edema, No Palpitations Respiratory : No Cough, No Sputum, No Wheezing, No Smoke Exposure, No Dyspnea Gastrointestinal : No Nausea, No Vomiting, No Diarrhea, No Constipation, No abdominal Pain, No Hematochezia, No Melena Genitourinary : no irregular bleeding, No Dysuria, No Urinary Frequency, No Hematuria, No Urinary Incontinence, No Urgency, No Flank Pain, No Urinary Flow Changes, No Hesitancy Musculoskeletal : No joint pain, No Myalgias, No Joint Swelling Skin : No Skin Lesions, No rash Neuro : No Weakness, No Numbness, No Paresthesias, No Loss of Consciousness, No Dizziness, No Headache Psych : No Anxiety/Panic, complaining of feeling suicidal, no homicidal ideation Heme/Lymph: No Bruising, No Bleeding,No Lymphadenopathy Endocrine : No Polyuria, No Polydipsia, No Temperature Intolerance Mental Status Exam Mental Status Exam Narrative: calm, cooperative, solomon islander speaking only. street clothes, adequately dressed and groomed. no PMA/PMR. cooperative. speech soft and mildly slowed, monotone. thoughts linear and logical. affect constricted, normo-intense, non- labile. mood a little better. denies SI/SIBI/HI/AH. reports AH in the evening/NOC. Diagnostics Vital Signs (24Hr): Vital Signs - 24 hr 02/04/23 15:55 02/04/23 20:49 02/05/23 08:00 Temperature 97.8 F 97.0 F 97.2 F Pulse Rate 87 77 78 Respiratory Rate 18 18 16 Blood Pressure 121/69 136/81 113/70 Pulse Oximetry 95 98 98 Oxygen Delivery Method Room Air Room Air Room Air BMI result Body Mass Index 24.7 Labs 02/01/23 02:10 02/01/23 10:09 Labs: Laboratory Results - last 48 hr 02/04/23 02/04/23 08:45 11:00 Estimat Average Glucose 137 Hemoglobin A1c % 6.4 Total Bilirubin 0.3 Direct Bilirubin 0.1 AST 19 ALT 18 Alkaline Phosphatase 79 Total Protein 5.7 L Albumin 3.6 Triglycerides 163 Cholesterol 129 LDL Cholesterol, Calc 58 HDL Cholesterol 39 Vitamin B12 1934 H Folate 6.1 TSH 0.80 Free T4 1.03 Medications Medications Current Medications Acetaminophen (Acetaminophen 325 Mg Tablet) 650 mg PO Q6H PRN PRN Reason: Headache/Pain Mild Scale (1-3) Last Admin: 02/05/23 08:45 Dose: 650 mg Al Hydroxide/Mg Hydroxide (Magnesium Hydrox/Alum Hydrox 30 Ml Oral.Susp) 30 ml PO Q6H PRN PRN Reason: Heartburn/Nausea Atorvastatin Calcium (Atorvastatin Calcium 10 Mg Tablet) 10 mg PO DAILY [facility] Last Admin: 02/05/23 08:37 Dose: 10 mg Chlorpromazine HCl (Chlorpromazine Hcl 100 Mg Tablet) 50 mg PO BEDTIME [facility] Last Admin: 02/04/23 21:03 Dose: 50 mg Chlorpromazine HCl (Chlorpromazine Hcl 25 Mg Tablet) 25 mg PO BEDTIME PRN PRN Reason: Insomnia Cyanocobalamin (Cyanocobalamin (Vitamin B-12) 1,000 Mcg Tablet) 1,000 mcg PO DA JIMY [facility] Last Admin: 02/05/23 08:38 Dose: 1,000 mcg Fluoxetine HCl (Fluoxetine Hcl 20 Mg Capsule) 40 mg PO DAILY [facility] Last Admin: 02/05/23 08:37 Dose: 40 mg Hydroxyzine HCl (Hydroxyzine Hcl 25 Mg Tablet) 25 mg PO Q6H PRN PRN Reason: Anxiety Lisinopril (Lisinopril 20 Mg Tablet) 20 mg PO DAILY [facility]; Protocol Last Admin: 02/05/23 08:37 Dose: 20 mg Lorazepam (Lorazepam 1 Mg Tablet) 1 mg PO Q2H PRN PRN Reason: CIWA 8 - 11 Last Admin: 02/04/23 21:04 Dose: 1 mg Lorazepam (Lorazepam 1 Mg Tablet) 2 mg PO Q2H PRN PRN Reason: CIWA 12 - 15 Lorazepam (Lorazepam 1 Mg Tablet) 3 mg PO TID PRN PRN Reason: CIWA > 15 and call Magnesium Hydroxide (Milk Of Magnesia 30 Ml Oral.Susp) 30 ml PO DAILY PRN PRN Reason: Constipation Metformin HCl (Metformin Hcl 1,000 Mg Tablet) 1,000 mg PO BID [facility] Last Admin: 02/05/23 08:38 Dose: 1,000 mg Naltrexone HCl (Naltrexone Hcl 50 Mg Tablet) 50 mg PO DAILY [facility] Nicotine Polacrilex (Nicotine Polacrilex 2 Mg Gum) 4 mg BUCCAL Q2H PRN PRN Reason: Nicotine Cravings Omeprazole (Omeprazole 20 Mg Capsule.Dr) 20 mg PO DAILY [facility] Last Admin: 02/05/23 08:38 Dose: 20 mg Allergies Allergies Allergy/AdvReac Type Severity Reaction Status Date / Time sertraline [From ZOLOFT] Allergy Mild HEADACHES Unverified 07/11/20 15:40 Assessment & Plan Assessment & Plan (1) Alcohol abuse: Status: Acute Code(s): F10.10 - Alcohol abuse, uncomplicated (2) Depression, unspecified: Status: Acute Code(s): F32.A - Depression, unspecified Plan continue thorazine 50 at HS, with thorazine 25 PRN. increase prozac to 40 mg to target anx/dep. start naltrexone on wednesday for alcohol use disorder. 02/05 continue tx. Reason for contiued inpatient stay Substantial Risk for: harm to self Time Spent With Patient Time: Total time managing care of this patient today ____ minutes.
[2023-02-05 20:26] VITALS: BP 132/78; PULSE 84; RESP 18; TEMP 36.6; O2SAT 98
[2023-02-05] MEDS: chlorproMAZINE HCl 100 MG TABLET 50 MG PO (20:41)
[2023-02-06] MEDS: metFORMIN HCl 1,000 MG TABLET 1000 MG PO ×2 (08:37→21:10)
[2023-02-06] MEDS: FLUoxetine HCl 20 MG CAPSULE 40 MG PO (08:37)
[2023-02-06] MEDS: lisinopriL 20 MG TABLET PO (08:37)
[2023-02-06] MEDS: Atorvastatin Calcium 10 MG TABLET PO (08:37)
[2023-02-06] MEDS: Omeprazole 20 MG CAPSULE.DR PO (08:37)
[2023-02-06] MEDS: Cyanocobalamin (Vitamin B-12) 1,000 MCG TABLET 1000 MCG PO (08:37)
[2023-02-06 10:30] VITALS: BP 121/76; PULSE 77; RESP 18; TEMP 36.6; O2SAT 99
--- NOTE | 2023-02-06 17:48 | HO.PSYCHPN ---
Subjective Subjective Date of Service: 02/06/23 Reason For Visit: SI/depression Interim History: Patient seen with certified court interpreter. Chart reviewed. Case discussed with RN. Reports feeling better with no voices for about a week. Eating and sleeping OK. Somewhat less isolative. Still interested in rehab. Medication Compliance: Yes Side effects from medications: No Attending Groups: Intermittent Review of Systems Acute medical concerns: No Mental Status Exam Mental Status Exam Patient Appearance: Unkempt Patient Orientation: Person, Place, Time and Situation Level of Consciousness: Alert Patient Behavior: Appropriate and Good Eye Contact Mood Description: Calm Affect Description: Relaxed Patient Cognition Impaired: No Ability to Follow Directions: Good Speech Pattern: Clear Memory Description: Intact Hallucinations: None Delusions: Not Present Thought Content: positive for Goal Oriented Judgement: Good Diagnostics Vital Signs (24Hr): Vital Signs - 24 hr 02/05/23 20:26 02/06/23 10:30 Temperature 97.9 F 97.8 F Pulse Rate 84 77 Respiratory Rate 18 18 Blood Pressure 132/78 121/76 Pulse Oximetry 98 99 Oxygen Delivery Method Room Air Room Air BMI result Body Mass Index 24.7 Labs 02/01/23 02:10 02/01/23 10:09 Medications Medications Current Medications Acetaminophen (Acetaminophen 325 Mg Tablet) 650 mg PO Q6H PRN PRN Reason: Headache/Pain Mild Scale (1-3) Last Admin: 02/05/23 08:45 Dose: 650 mg Al Hydroxide/Mg Hydroxide (Magnesium Hydrox/Alum Hydrox 30 Ml Oral.Susp) 30 ml PO Q6H PRN PRN Reason: Heartburn/Nausea Atorvastatin Calcium (Atorvastatin Calcium 10 Mg Tablet) 10 mg PO DAILY [facility] Last Admin: 02/06/23 08:37 Dose: 10 mg Chlorpromazine HCl (Chlorpromazine Hcl 100 Mg Tablet) 50 mg PO BEDTIME [facility] Last Admin: 02/05/23 20:41 Dose: 50 mg Chlorpromazine HCl (Chlorpromazine Hcl 25 Mg Tablet) 25 mg PO BEDTIME PRN PRN Reason: Insomnia Cyanocobalamin (Cyanocobalamin (Vitamin B-12) 1,000 Mcg Tablet) 1,000 mcg PO DAILY [facility] Last Admin: 02/06/23 08:37 Dose: 1,000 mcg Fluoxetine HCl (Fluoxetine Hcl 20 Mg Capsule) 40 mg PO DAILY [facility] Last Admin: 02/06/23 08:37 Dose: 40 mg Hydroxyzine HCl (Hydroxyzine Hcl 25 Mg Tablet) 25 mg PO Q6H PRN PRN Reason: Anxiety Lisinopril (Lisinopril 20 Mg Tablet) 20 mg PO DAILY [facility]; Protocol Last Admin: 02/06/23 08:37 Dose: 20 mg Magnesium Hydroxide (Milk Of Magnesia 30 Ml Oral.Susp) 30 ml PO DAILY PRN PRN Reason: Constipation Metformin HCl (Metformin Hcl 1,000 Mg Tablet) 1,000 mg PO BID [facility] Last Admin: 02/06/23 08:37 Dose: 1,000 mg Naltrexone HCl (Naltrexone Hcl 50 Mg Tablet) 50 mg PO DAILY [facility] Nicotine Polacrilex (Nicotine Polacrilex 2 Mg Gum) 4 mg BUCCAL Q2H PRN PRN Reason: Nicotine Cravings Omeprazole (Omeprazole 20 Mg Capsule.Dr) 20 mg PO DAILY [facility] Last Admin: 02/06/23 08:37 Dose: 20 mg Allergies Allergies Allergy/AdvReac Type Severity Reaction Status Date / Time sertraline [From ZOLOFT] Allergy Mild HEADACHES Unverified 07/11/20 15:40 Assessment & Plan Assessment & Plan (1) Alcohol abuse: Status: Acute Code(s): F10.10 - Alcohol abuse, uncomplicated (2) Depression, unspecified: Status: Acute Code(s): F32.A - Depression, unspecified Assessment and Plan: 02/06:no medication changes Plan continue thorazine 50 at HS, with thorazine 25 PRN. increase prozac to 40 mg to target anx/dep. start naltrexone on wednesday for alcohol use disorder. 02/05 continue tx. Reason for continued inpatient stay Substantial Risk for: harm to self Time Spent With Patient Time: Total time managing care of this patient today ____ minutes.
[2023-02-06] MEDS: chlorproMAZINE HCl 100 MG TABLET 50 MG PO (21:10)
[2023-02-06] MEDS: hydrOXYzine HCL 25 MG TABLET PO (21:10)
[2023-02-06 21:20] VITALS: BP 129/83; PULSE 77; RESP 18; TEMP 36.7; O2SAT 99
--- NOTE | 2023-02-07 04:41 | PC.NURSE ---
Milind was noted to be mainly isolating in his room throughout the evening, he is pleasant and cooperative. He c/o difficulty sleeping and received Atarax with positive effect. no behavioral concerns patient continues to endorse mild to moderate anxiety, but denies all other psych symptoms, continue plan of care monitor for safety
[2023-02-07] MEDS: metFORMIN HCl 1,000 MG TABLET 1000 MG PO ×2 (08:41→20:35)
[2023-02-07] MEDS: Cyanocobalamin (Vitamin B-12) 1,000 MCG TABLET 1000 MCG PO (08:41)
[2023-02-07] MEDS: Omeprazole 20 MG CAPSULE.DR PO (08:41)
[2023-02-07] MEDS: Atorvastatin Calcium 10 MG TABLET PO (08:41)
[2023-02-07] MEDS: FLUoxetine HCl 20 MG CAPSULE 40 MG PO (08:41)
[2023-02-07] MEDS: lisinopriL 20 MG TABLET PO (08:41)
[2023-02-07 09:00] VITALS: BP 118/71; PULSE 82; RESP 18; TEMP 36.6; O2SAT 99
--- NOTE | 2023-02-07 13:47 | P.PNPSI_ITS ---
Subjective Subjective Date of Service: 02/07/23 Reason For Visit: SI/depression Subjective Notes: Conditional Voluntary Interim History: Patient seen. Chart reviewed. Case discussed with RN. Patient seen with sheet metal duct installer helper. Denies complaints. Eating and sleeping OK. Received PRN atarax yesterday but no recent PRN Thorazine. Reports no SI for last 4 days and no voices for last 3 days. Medication Compliance: Yes Side effects from medications: No Attending Groups: No Review of Systems Acute medical concerns: No Mental Status Exam Mental Status Exam Patient Appearance: Disheveled Patient Orientation: Person, Place, Time and Situation Level of Consciousness: Alert Patient Behavior: Appropriate Mood Description: Calm Affect Description: Appropriate Speech Pattern: Clear Hallucinations: None Delusions: Paranoid Ideation Thought Process: Linear Thought Content: positive for Intact Judgement: Fair Diagnostics Vital Signs (24Hr): Vital Signs - 24 hr 02/06/23 21:20 02/07/23 09:00 Temperature 98.1 F 97.9 F Pulse Rate 77 82 Respiratory Rate 18 18 Blood Pressure 129/83 118/71 Pulse Oximetry 99 99 Oxygen Delivery Method Room Air Room Air BMI result Body Mass Index 24.7 Labs 02/01/23 02:10 02/01/23 10:09 Medications Medications Current Medications Acetaminophen (Acetaminophen 325 Mg Tablet) 650 mg PO Q6H PRN PRN Reason: Headache/Pain Mild Scale (1-3) Last Admin: 02/05/23 08:45 Dose: 650 mg Al Hydroxide/Mg Hydroxide (Magnesium Hydrox/Alum Hydrox 30 Ml Oral.Susp) 30 ml PO Q6H PRN PRN Reason: Heartburn/Nausea Atorvastatin Calcium (Atorvastatin Calcium 10 Mg Tablet) 10 mg PO DAILY [facility] Last Admin: 02/07/23 08:41 Dose: 10 mg Chlorpromazine HCl (Chlorpromazine Hcl 100 Mg Tablet) 50 mg PO BEDTIME [facility] Last Admin: 02/06/23 21:10 Dose: 50 mg Chlorpromazine HCl (Chlorpromazine Hcl 25 Mg Tablet) 25 mg PO BEDTIME PRN PRN Reason: Insomnia Cyanocobalamin (Cyanocobalamin (Vitamin B-12) 1,000 Mcg Tablet) 1,000 mcg PO DAILY [facility] Last Admin: 02/07/23 08:41 Dose: 1,000 mcg Fluoxetine HCl (Fluoxetine Hcl 20 Mg Capsule) 40 mg PO DAILY [facility] Last Admin: 02/07/23 08:41 Dose: 40 mg Hydroxyzine HCl (Hydroxyzine Hcl 25 Mg Tablet) 25 mg PO Q6H PRN PRN Reason: Anxiety Last Admin: 02/06/23 21:10 Dose: 25 mg Lisinopril (Lisinopril 20 Mg Tablet) 20 mg PO DAILY [facility]; Protocol Last Admin: 02/07/23 08:41 Dose: 20 mg Magnesium Hydroxide (Milk Of Magnesia 30 Ml Oral.Susp) 30 ml PO DAILY PRN PRN Reason: Constipation Metformin HCl (Metformin Hcl 1,000 Mg Tablet) 1,000 mg PO BID [facility] Last Admin: 02/07/23 08:41 Dose: 1,000 mg Naltrexone HCl (Naltrexone Hcl 50 Mg Tablet) 50 mg PO DAILY [facility] Nicotine Polacrilex (Nicotine Polacrilex 2 Mg Gum) 4 mg BUCCAL Q2H PRN PRN Reason: Nicotine Cravings Omeprazole (Omeprazole 20 Mg Capsule.Dr) 20 mg PO DAILY [facility] Last Admin: 02/07/23 08:41 Dose: 20 mg Allergies Allergies Allergy/AdvReac Type Severity Reaction Status Date / Time sertraline [From ZOLOFT] Allergy Mild HEADACHES Unverified 07/11/20 15:40 Assessment & Plan Assessment & Plan (1) Alcohol abuse: Status: Acute Code(s): F10.10 - Alcohol abuse, uncomplicated (2) Depression, unspecified: Qualifiers: Depression Type: major depressive disorder Psychotic features: with psychotic features Status: Acute Code(s): F32.A - Depression, unspecified Plan continue thorazine 50 at HS, with thorazine 25 PRN. increase prozac to 40 mg to target anx/dep. start naltrexone on wednesday for alcohol use disorder. 02/05 continue tx. 02/06: no medication changes 02/07: No medication changes Reason for continued inpatient stay Substantial Risk for: harm to self Time Spent With Patient Time: Total time managing care of this patient today ____ minutes.
[2023-02-07 20:05] VITALS: BP 114/74; PULSE 83; RESP 18; TEMP 36.2; O2SAT 99
[2023-02-07] MEDS: chlorproMAZINE HCl 100 MG TABLET 50 MG PO (20:35)
--- NOTE | 2023-02-07 20:39 | PC.NURSE ---
Milind is noted to be isolating in his bed this evening. he is pleasant and cooperative upon approach. he denies depression/anxiety, suicidal/homicidal ideation and auditory/visual halljucinations. he had minimal engagement with this production underwriter. no behavioral concerns, monitor for safety, continue Plan of Care
[2023-02-08] MEDS: lisinopriL 20 MG TABLET PO (08:33)
[2023-02-08] MEDS: FLUoxetine HCl 20 MG CAPSULE 40 MG PO (08:33)
[2023-02-08] MEDS: Atorvastatin Calcium 10 MG TABLET PO (08:33)
[2023-02-08] MEDS: metFORMIN HCl 1,000 MG TABLET 1000 MG PO ×2 (08:33→20:51)
[2023-02-08] MEDS: Cyanocobalamin (Vitamin B-12) 1,000 MCG TABLET 1000 MCG PO (08:34)
[2023-02-08] MEDS: Omeprazole 20 MG CAPSULE.DR PO (08:34)
[2023-02-08] MEDS: Naltrexone HCl 50 MG TABLET PO (08:34)
[2023-02-08 09:30] LABS: Estimated Glomerular Filt Rate > 60
[2023-02-08 09:35] VITALS: BP 108/69; PULSE 85; RESP 18; TEMP 36.6; O2SAT 98
--- NOTE | 2023-02-08 13:46 | HO.PSYCHPN ---
Subjective Subjective Date of Service: 02/08/23 Reason For Visit: SI/depression Subjective Notes: Conditional Voluntary Interim History: No behavior management issues. Low pitt. Eating and sleeping OK. No complaints Side effects from medications: No Attending Groups: No Review of Systems Acute medical concerns: No Mental Status Exam Mental Status Exam Patient Appearance: Well Grooomed Level of Consciousness: Alert Patient Behavior: Appropriate and Passive Mood Description: Calm Affect Description: Calm and Withdrawn Patient Cognition Impaired: No Speech Pattern: Clear Delusions: Not Present Thought Process: Linear Thought Content: positive for Poverty of Content Depressive Symptoms: Loss of Energy Judgement: Fair Diagnostics Vital Signs (24Hr): Vital Signs - 24 hr 02/07/23 20:05 02/08/23 09:35 Temperature 97.2 F 97.8 F Pulse Rate 83 85 Respiratory Rate 18 18 Blood Pressure 114/74 108/69 Pulse Oximetry 99 98 Oxygen Delivery Method Room Air Room Air BMI result Body Mass Index 24.7 Labs 02/01/23 02:10 02/08/23 08:14 Labs: Laboratory Results - last 48 hr 02/08/23 08:14 Creatinine 0.89 Estim Creat Clear Calc 86.0 Estimated GFR > 60 Medications Medications Current Medications Acetaminophen (Acetaminophen 325 Mg Tablet) 650 mg PO Q6H PRN PRN Reason: Headache/Pain Mild Scale (1-3) Last Admin: 02/05/23 08:45 Dose: 650 mg Al Hydroxide/Mg Hydroxide (Magnesium Hydrox/Alum Hydrox 30 Ml Oral.Susp) 30 ml PO Q6H PRN PRN Reason: Heartburn/Nausea Atorvastatin Calcium (Atorvastatin Calcium 10 Mg Tablet) 10 mg PO DAILY [facility] Last Admin: 02/08/23 08:33 Dose: 10 mg Chlorpromazine HCl (Chlorpromazine Hcl 100 Mg Tablet) 50 mg PO BEDTIME [facility] Last Admin: 02/07/23 20:35 Dose: 50 mg Chlorpromazine HCl (Chlorpromazine Hcl 25 Mg Tablet) 25 mg PO BEDTIME PRN PRN Reason: Insomnia Cyanocobalamin (Cyanocobalamin (Vitamin B-12) 1,000 Mcg Tablet) 1,000 mcg PO DAILY [facility] Last Admin: 02/08/23 08:34 Dose: 1,000 mcg Fluoxetine HCl (Fluoxetine Hcl 20 Mg Capsule) 40 mg PO DAILY [facility] Last Admin: 02/08/23 08:33 Dose: 40 mg Hydroxyzine HCl (Hydroxyzine Hcl 25 Mg Tablet) 25 mg PO Q6H PRN PRN Reason: Anxiety Last Admin: 02/06/23 21:10 Dose: 25 mg Lisinopril (Lisinopril 20 Mg Tablet) 20 mg PO DAILY [facility]; Protocol Last Admin: 02/08/23 08:33 Dose: 20 mg Magnesium Hydroxide (Milk Of Magnesia 30 Ml Oral.Susp) 30 ml PO DAILY PRN PRN Reason: Constipation Metformin HCl (Metformin Hcl 1,000 Mg Tablet) 1,000 mg PO BID [facility] Last Admin: 02/08/23 08:33 Dose: 1,000 mg Naltrexone HCl (Naltrexone Hcl 50 Mg Tablet) 50 mg PO DAILY [facility] Last Admin: 02/08/23 08:34 Dose: 50 mg Nicotine Polacrilex (Nicotine Polacrilex 2 Mg Gum) 4 mg BUCCAL Q2H PRN PRN Reason: Nicotine Cravings Omeprazole (Omeprazole 20 Mg Capsule.Dr) 20 mg PO DAILY [facility] Last Admin: 02/08/23 08:34 Dose: 20 mg Allergies Allergies Allergy/AdvReac Type Severity Reaction Status Date / Time sertraline [From ZOLOFT] Allergy Mild HEADACHES Unverified 07/11/20 15:40 Assessment & Plan Assessment & Plan (1) Alcohol abuse: Status: Acute Code(s): F10.10 - Alcohol abuse, uncomplicated (2) Depression, unspecified: Qualifiers: Depression Type: major depressive disorder Psychotic features: with psychotic features Status: Acute Code(s): F32.A - Depression, unspecified Plan continue thorazine 50 at HS, with thorazine 25 PRN. increase prozac to 40 mg to target anx/dep. start naltrexone on wednesday for alcohol use disorder. 02/05 continue tx. 02/06: no medication changes 02/07: No medication changes 02/08 continue current plan Reason for continued inpatient stay Substantial Risk for: inability to function Time Spent With Patient Time: Total time managing care of this patient today ____ minutes.
[2023-02-08 19:56] VITALS: BP 122/77; PULSE 76; RESP 16; TEMP 36.7; O2SAT 98
[2023-02-08] MEDS: chlorproMAZINE HCl 100 MG TABLET 50 MG PO (20:50)
[2023-02-09] MEDS: FLUoxetine HCl 20 MG CAPSULE 40 MG PO (08:57)
[2023-02-09] MEDS: lisinopriL 20 MG TABLET PO (08:57)
[2023-02-09] MEDS: Omeprazole 20 MG CAPSULE.DR PO (08:58)
[2023-02-09] MEDS: Cyanocobalamin (Vitamin B-12) 1,000 MCG TABLET 1000 MCG PO (08:58)
[2023-02-09] MEDS: Atorvastatin Calcium 10 MG TABLET PO (08:58)
[2023-02-09] MEDS: metFORMIN HCl 1,000 MG TABLET 1000 MG PO ×2 (08:58→21:33)
[2023-02-09] MEDS: Naltrexone HCl 50 MG TABLET PO (08:58)
[2023-02-09 09:00] VITALS: BP 105/65; PULSE 83; RESP 18; TEMP 36.6; O2SAT 100
--- NOTE | 2023-02-09 15:39 | HO.PSYCHPN ---
Subjective Subjective Date of Service: 02/09/23 Reason For Visit: SI/depression Subjective Notes: Conditional Voluntary Interim History: Pt has been mostly in bed. he reports he feels tired at times but reports sleeping well. He also reports feeling less depressed. He denies SI/HI. No signs of psychosis. Pt awaiting stepping down to dual dx program. Medication Compliance: Yes Side effects from medications: No Review of Systems Review of Systems Constitutional : No Weight loss, No Fever, No Chills, No Night Sweats, No Fatigue, No Malaise ENT/Mouth : No Hearing loss, No Ear Pain, No Nasal Congestion, No Sinus Pain, No Hoarseness, No sore throat, No Rhinorrhea, No Swallowing Difficulty Eyes: No Eye Pain, No Swelling, No Redness, No Foreign Body, No Discharge, No Vision Changes Cardiovascular : No Chest Pain, No SOB, No Dyspnea on Exertion, No Orthopnea, No Edema, No Palpitations Respiratory : No Cough, No Sputum, No Wheezing, No Smoke Exposure, No Dyspnea Gastrointestinal : No Nausea, No Vomiting, No Diarrhea, No Constipation, No abdominal Pain, No Hematochezia, No Melena Genitourinary : no irregular bleeding, No Dysuria, No Urinary Frequency, No Hematuria, No Urinary Incontinence, No Urgency, No Flank Pain, No Urinary Flow Changes, No Hesitancy Musculoskeletal : No joint pain, No Myalgias, No Joint Swelling Skin : No Skin Lesions, No rash Neuro : No Weakness, No Numbness, No Paresthesias, No Loss of Consciousness, No Dizziness, No Headache Psych : No Anxiety/Panic, complaining of feeling suicidal, no homicidal ideation Heme/Lymph: No Bruising, No Bleeding,No Lymphadenopathy Endocrine : No Polyuria, No Polydipsia, No Temperature Intolerance Mental Status Exam Mental Status Exam Narrative: calm, cooperative, yi speaking only. street clothes, adequately dressed and groomed. no PMA/PMR. cooperative. speech soft and mildly slowed, monotone. thoughts linear and logical. affect constricted, normo-intense, non-labile. mood a little better. denies SI/SIBI/HI/AH. reports AH in the evening/NOC. Diagnostics Vital Signs (24Hr): Vital Signs - 24 hr 02/08/23 19:56 02/09/23 09:00 Temperature 98.1 F 97.9 F Pulse Rate 76 83 Respiratory Rate 16 18 Blood Pressure 122/77 105/65 Pulse Oximetry 98 100 Oxygen Delivery Method Room Air Room Air BMI result Body Mass Index 24.7 Labs 02/01/23 02:10 02/08/23 08:14 Labs: Laboratory Results - last 48 hr 02/08/23 08:14 Creatinine 0.89 Estim Creat Clear Calc 86.0 Estimated GFR > 60 Medications Medications Current Medications Acetaminophen (Acetaminophen 325 Mg Tablet) 650 mg PO Q6H PRN PRN Reason: Headache/Pain Mild Scale (1-3) Last Admin: 02/05/23 08:45 Dose: 650 mg Al Hydroxide/Mg Hydroxide (Magnesium Hydrox/Alum Hydrox 30 Ml Oral.Susp) 30 ml PO Q6H PRN PRN Reason: Heartburn/Nausea Atorvastatin Calcium (Atorvastatin Calcium 10 Mg Tablet) 10 mg PO DAILY [facility] Last Admin: 02/09/23 08:58 Dose: 10 mg Chlorpromazine HCl (Chlorpromazine Hcl 100 Mg Tablet) 50 mg PO BEDTIME [facility] Last Admin: 02/08/23 20:50 Dose: 50 mg Chlorpromazine HCl (Chlorpromazine Hcl 25 Mg Tablet) 25 mg PO BEDTIME PRN PRN Reason: Insomnia Cyanocobalamin (Cyanocobalamin (Vitamin B-12) 1,000 Mcg Tablet) 1,000 mcg PO DAILY [facility] Last Admin: 02/09/23 08:58 Dose: 1,000 mcg Fluoxetine HCl (Fluoxetine Hcl 20 Mg Capsule) 40 mg PO DAILY [facility] Last Admin: 02/09/23 08:57 Dose: 40 mg Hydroxyzine HCl (Hydroxyzine Hcl 25 Mg Tablet) 25 mg PO Q6H PRN PRN Reason: Anxiety Last Admin: 02/06/23 21:10 Dose: 25 mg Lisinopril (Lisinopril 20 Mg Tablet) 20 mg PO DAILY [facility]; Protocol Last Admin: 02/09/23 08:57 Dose: 20 mg Magnesium Hydroxide (Milk Of Magnesia 30 Ml Oral.Susp) 30 ml PO DAILY PRN PRN Reason: Constipation Metformin HCl (Metformin Hcl 1,000 Mg Tablet) 1,000 mg PO BID [facility] Last Admin: 02/09/23 08:58 Dose: 1,000 mg Naltrexone HCl (Naltrexone Hcl 50 Mg Tablet) 50 mg PO DAILY [facility] Last Admin: 02/09/23 08:58 Dose: 50 mg Nicotine Polacrilex (Nicotine Polacrilex 2 Mg Gum) 4 mg BUCCAL Q2H PRN PRN Reason: Nicotine Cravings Omeprazole (Omeprazole 20 Mg Capsule.Dr) 20 mg PO DAILY [facility] Last Admin: 02/09/23 08:58 Dose: 20 mg Allergies Allergies Allergy/AdvReac Type Severity Reaction Status Date / Time sertraline [From ZOLOFT] Allergy Mild HEADACHES Unverified 07/11/20 15:40 Assessment & Plan Assessment & Plan (1) Alcohol abuse: Status: Acute Code(s): F10.10 - Alcohol abuse, uncomplicated (2) Depression, unspecified: Qualifiers: Depression Type: major depressive disorder Psychotic features: with psychotic features Status: Acute Code(s): F32.A - Depression, unspecified Plan continue thorazine 50 at HS, with thorazine 25 PRN. increase prozac to 40 mg to target anx/dep. start naltrexone on wednesday for alcohol use disorder. 02/05 continue tx. 02/06: no medication changes 02/07: No medication changes 02/08 continue current plan 02/09 continue tx. Pt to step down tomorrow to residential dual dx tx. Reason for continued inpatient stay Substantial Risk for: stable for discharge Time Spent With Patient Time: Total time managing care of this patient today ____ minutes.
[2023-02-09 21:31] VITALS: BP 118/79; PULSE 75; TEMP 36.8; O2SAT 97
[2023-02-09] MEDS: hydrOXYzine HCL 25 MG TABLET PO (21:33)
[2023-02-09] MEDS: chlorproMAZINE HCl 100 MG TABLET 50 MG PO (21:33)
[2023-02-10 08:13] VITALS: BP 113/73; PULSE 89; RESP 16; TEMP 36.3; O2SAT 99
[2023-02-10] MEDS: Omeprazole 20 MG CAPSULE.DR PO (08:14)
[2023-02-10] MEDS: lisinopriL 20 MG TABLET PO (08:14)
[2023-02-10] MEDS: Atorvastatin Calcium 10 MG TABLET PO (08:14)
[2023-02-10] MEDS: Cyanocobalamin (Vitamin B-12) 1,000 MCG TABLET 1000 MCG PO (08:14)
[2023-02-10] MEDS: Naltrexone HCl 50 MG TABLET PO (08:14)
[2023-02-10] MEDS: metFORMIN HCl 1,000 MG TABLET 1000 MG PO (08:14)
[2023-02-10] MEDS: FLUoxetine HCl 20 MG CAPSULE 40 MG PO (08:14)
--- NOTE | 2023-02-10 09:45 | P.DS_ITS ---
DS: Providers Provider Date of Service: 02/10/23 Date of admission: 02/03/23 14:41 Primary care physician: Unknown Physician DS: Diagnosis Discharge Diagnosis (1) Alcohol abuse: Status: Acute (2) Depression, unspecified: Status: Acute DS: Medications Discharge Medications Home Medications: Previous Rx's Medication Instructions Recorded atorvastatin 10 mg tablet 10 mg PO DAILY #30 tabs 02/09/23 chlorpromazine 100 mg tablet 50 mg PO BEDTIME #30 tabs 02/09/23 cyanocobalamin (vitamin B-12) 1,000 mcg PO DAILY #30 tabs 02/09/23 1,000 mcg tablet (Vitamin B-12) fluoxetine 40 mg capsule 40 mg PO DAILY #30 caps 02/09/23 lisinopril 20 mg tablet 20 mg PO DAILY #30 tabs 02/09/23 metformin 1,000 mg tablet 1,000 mg PO BID #60 tabs 02/09/23 naltrexone 50 mg tablet 50 mg PO DAILY #30 tabs 02/09/23 omeprazole 20 mg capsule,delayed 20 mg PO DAILY #30 caps 02/09/23 release Mental Status Exam Mental Status Exam Narrative: calm, cooperative, russian speaking only. street clothes, adequately dressed and groomed. no PMA/PMR. cooperative. speech soft and mildly slowed, monotone. thoughts linear and logical. affect constricted, normo-intense, non- labile. mood a little better. denies SI/SIBI/HI/AH. reports AH in the evening/NOC. Data Data Completed and Pending Completed studies during hospitalization [Text1]: 02/04/23 02/04/23 02/08/23 08:45 11:00 08:14 Creatinine 0.89 Estim Creat Clear Calc 86.0 Estimated GFR > 60 Estimat Average Glucose 137 Hemoglobin A1c % 6.4 Total Bilirubin 0.3 Direct Bilirubin 0.1 AST 19 ALT 18 Alkaline Phosphatase 79 Total Protein 5.7 L Albumin 3.6 Triglycerides 163 Cholesterol 129 LDL Cholesterol, Calc 58 HDL Cholesterol 39 Vitamin B12 1934 H Folate 6.1 TSH 0.80 Free T4 1.03 02/01/23 00:00 Urine clean catch - Clean Catch Midstream Urine Culture - Final No growth. DS: Summary Hospital Course Hospital Course: HPI: pt released from [facility] last month (01/15/23).? ex-GF let him stay with her but said he had to leave after 2 weeks.? he began drinking right away.? prior to admission he states he attempted to overdose on some medications, but she wouldn't allow him to have the medications.? he had urges to cut himself, and he decided to call 911 rather than do that.? the police came and brought him to the hospital.? he is now homeless.? per CARE team lindsey, pt contacted 911 2 SI and was intoxicated and circumambulating the [employer] station for 8 hours prior to calling.? reported to CARE team staff he hears AH if he doesn't take his meds.? takes thorazine 50 and prozac 20.? on interview with , pt agreeable to continue thorazine 50 at and to increase prozac from 20 mg daily to 40 for depression and anxiety.? will restart naltrexone on wednesday and continue with CIWA-driven ativan detox. Past Psychiatric History: hosps: about 8 prior SA:? reports one attempt via hanging in 1994 SIB: h/o cutting since 1992, through about 2 months ago. outpt Tx:? has a therspit but hasn't seen her recently.? no prescriber since getting out of [facility] last month. Medical Evaluation Reviewed: Yes HOSPITAL COURSE On the unit, pt was admitted on a CV and placed on 15 minutes checks for safety. After discussing risks, benefits and alternative treatment options, pt agreed to start prozac for depression, naltrexon to decrease alcohol cravings and thorazine for mood/anxious mood. His affect gradually presented as brighter. He denied suicidal or homicidal ideation throughout this admission. He presented as future oriented in that he was looking forward to continue residential substance use treatment. He was stepped down to dual residential program to continue recovery. There were no incidences of disruptive behaviors nor need for restraints. No signs of psychos is or delusions. Pt was sleeping and eating well. Time spent discussing smoking cessation with patient: 3 to 10 minutes Status at Discharge Cognitive/behavioral status at discharge: Pt with brighter, non labile affect. No SI/HI. No psychosis. Future oriented. Sleeping and eating well. No signs of aggression towards self or others. Functional status at discharge: independent ambulation Overall status at discharge: patient is progressing back to baseline Time Spent with Patient Time attestation: Total time managing care of this patient today ____ minutes. Discharge Plan Discharge Anticipated Discharge Date/Time: 02/10/23 08:00 Patient Disposition: Home, Self-Care Discharge Diagnosis: MDD, recurrent, moderate alcohol use disorder Referrals: Physician,Unknown J [Primary Care Provider] - 1 Week Discharge Medications: New atorvastatin 10 mg Tablet 10 mg PO DAILY Qty: 30 0RF chlorpromazine 100 mg Tablet 50 mg PO BEDTIME Qty: 30 0RF lisinopril 20 mg Tablet 20 mg PO DAILY Qty: 30 0RF Protocol: Hold for SBP< HOLD for SBP < : 90 fluoxetine 40 mg capsule 40 mg PO DAILY Qty: 30 0RF naltrexone 50 mg Tablet 50 mg PO DAILY Qty: 30 0RF cyanocobalamin (vitamin B-12) [Vitamin B-12] 1,000 mcg Tablet 1,000 mcg PO DAILY Qty: 30 0RF metformin 1,000 mg Tablet 1,000 mg PO BID Qty: 60 0RF omeprazole 20 mg Capsule,Delayed Release(Dr/Ec) 20 mg PO DAILY Qty: 30 0RF Discontinued diphenhydramine HCl [Banophen] 50 mg capsule 50 mg PO BEDTIME chlorpromazine 100 mg tablet 100 mg PO BEDTIME lisinopril 20 mg tablet 20 mg PO DAILY cyanocobalamin (vitamin B-12) 1,000 mcg tablet 1,000 mcg PO QAM pantoprazole 40 mg tablet,delayed release (DR/EC) 40 mg PO DAILY simvastatin 20 mg tablet 20 mg PO DAILY metformin 1,000 mg tablet 1,000 mg PO BID fluoxetine 20 mg capsule 20 mg PO QAM Discharge Orders: Discharge Order (Routine); Ordered 02/10/23 Ordered By: Rosaura Babb Diet: Regular diet Activity on Discharge: As tolerated Stand Alone Forms: Patient Portal Discharge page, Community Support Care Plan Goals: 1. maintain mood 2. No SI/HI Health Concerns: Follow up with PCP Plan of Treatment: take medications as prescribed go to nearest ED or call 911 in event of emergency Assessment: Pt with brighter, non labile affect. No SI/HI. No VH/AH. Future oriented, sleeping and eating well. No signs of aggression towards self or others. Discharge Date/Time: 02/10/23 12:30
== END 2023-02-10 12:30 | disposition home or self-care (01) | DRG 885 ==
LOC: HO.ED 21:52 → HO.PADLT16 02-03 14:45
PROVIDERS: Nurse Practitioner Family; Admitting Provider Psychiatry & Neurology Psychiatry; Emergency Provider Emergency Medicine; Visit Provider Psychiatry & Neurology Psychiatry
DX: F33.1 Major depressive disorder, recurrent, moderate (principal); R45.851 Suicidal ideations; F10.10 Alcohol abuse, uncomplicated; F17.210 Nicotine dependence, cigarettes, uncomplicated; Z71.6 Tobacco abuse counseling; Y90.6 Blood alcohol level of 120-199 mg/100 ml; Z20.822 Contact with and (suspected) exposure to COVID-19; Z59.00 Homelessness unspecified; Z79.84 Long term (current) use of oral hypoglycemic drugs; Z79.899 Other long term (current) drug therapy
CPT/HCPCS: 36415; 80048; 80061; 80076; 80307; 81001; 82077; 82565; 82607; 82746; 82947; 83036; 83735; 84439; 84443; 84484; 85025; 87086; 87635; 93005; 99285; S9485

== ENCOUNTER 2023-02-16 15:27 | Emergency (ER) | payer OTHER, SELFPAY ==
[2023-02-16 15:41] VITALS: BP 118/78; BMI 29.2
[2023-02-16] MEDS: LORazepam 2 MG/ML VIAL IM (15:55)
[2023-02-16] MEDS: diphenhydrAMINE HCL 50 MG/ML VIAL IM (15:55)
[2023-02-16] MEDS: Haloperidol Lactate 5 MG/ML VIAL IM (15:55)
--- NOTE | 2023-02-16 15:55 | PC.NURSE ---
pt alert and combative with EMS crew and security. pt brought in after being found drunk and on the ground. Pt wandering halls, dropping himself to the floor, and refusing PO medsications. Pt medicated per MAR for agitation and uncooperative behavior.
--- NOTE | 2023-02-16 16:03 | PC.NURSE ---
pt alert to prson and alert to being in hospital. pt combative, agitated and uncooperative. PO ativan refused by pt. Pt medicated IM per DEC. security at bedside. will continue to monitor
--- NOTE | 2023-02-16 16:20 | PC.NURSE ---
pt resting quietly, dozes and awakes to light noise or stimulation.
--- NOTE | 2023-02-16 16:20 | ED.ALCOHOL ---
HPI - Alcohol General Chief Complaint: ETOH/Substance Use Stated Complaint: ETOH Combative Time Seen by Provider: 02/16/23 15:36 Source: patient and EMS Mode of arrival: EMS Limitations: other (Intoxicated) History of Present Illness HPI narrative: Patient comes to the emergency room via ambulance. According to EMS, a bystander found the patient sitting on the street, acting intoxicated. Patient denies falling or hitting his head. Patient is awake and alert, but not making any sense because he is intoxicated. Related Data Previous Rx's Medication Instructions Recorded atorvastatin 10 mg tablet 10 mg PO DAILY #30 tabs 02/09/23 chlorpromazine 100 mg tablet 50 mg PO BEDTIME #30 tabs 02/09/23 cyanocobalamin (vitamin B-12) 1,000 mcg PO DAILY #30 tabs 02/09/23 1,000 mcg tablet (Vitamin B-12) fluoxetine 40 mg capsule 40 mg PO DAILY #30 caps 02/09/23 lisinopril 20 mg tablet 20 mg PO DAILY #30 tabs 02/09/23 metformin 1,000 mg tablet 1,000 mg PO BID #60 tabs 02/09/23 naltrexone 50 mg tablet 50 mg PO DAILY #30 tabs 02/09/23 omeprazole 20 mg capsule,delayed 20 mg PO DAILY #30 caps 02/09/23 release Allergies Allergy/AdvReac Type Severity Reaction Status Date / Time sertraline [From ZOLOFT] Allergy Mild HEADACHES Unverified 07/11/20 15:40 Review of Systems Review of Systems: Yes Other (Impacted, denies any symptoms) COUNT INCLUDES [facility] Past Medical History Medical History Alcohol abuse Social History Social History Household Members: Other Household Members Other:: Currently homeless Housing: Other Housing Other:: none Do you presently have visiting nurse or other home services: No Alcohol intake: current Alcohol intake frequency: 3 or more drinks per day Patient Tobacco Use Status: Current everyday Tobacco user Tobacco use type: Cigarette Cigarette Packs Per Day: 1 Cigarettes Per Day: 20.0 Years Smoked: 47 e-Cigarette/Vaping Use: Former Use Second Hand Smoke Exposure: No (homeless) Substance Use Type: Marijuana Advance Directives: No Advance Directives Information Provided: Yes service: No Sexual orientation: Straight/Heterosexual Physical Exam ED Vital Signs: Vital Signs - 24 hr 02/16/23 18:00 02/16/23 19:07 02/16/23 19:26 Temperature 97.5 F 97.8 F Pulse Rate 102 H 97 100 Respiratory Rate 16 16 Blood Pressure 94/59 L 104/74 95/53 L Pulse Oximetry 90 L 98 94 Oxygen Delivery Method Room Air Room Air Room Air 02/16/23 16:30 Temperature Pulse Rate 120 H Respiratory Rate 18 Blood Pressure Pulse Oximetry 95 Oxygen Delivery Method Room Air BMI result Body Mass Index 29.2 Const Other: Appearance: Alert. Oriented X1. No acute distress. Intoxicated Eyes: Pupils equal, round and reactive to light. ENT: Pharynx normal. Neck: Normal inspection. Neck supple. No lymph nodes noted. No crepitus CVS: Normal heart rate and rhythm. Pulses normal. Normal S1 and S2 Respiratory: No respiratory distress. Breath sounds normal. No Wheezing. No rales Abdomen: Soft and nontender. No rigidity. No distention. Skin: Skin warm and dry. Normal skin color. Normal skin turgor. Extremities: No lower extremity edema. No Lacerations. No Rash Neuro: Oriented X 3. No motor deficit. No sensory deficit. Moving all extremities. Has slurred speech due to ETOH, CN 2 through 12 grossly intact, wobbly gait Psych: calm, cooperative, agitated but redirectable Course Course Course Narrative: -patient trying to get out of bed, trying to get to other patient's rooms and yells at them. Redirection attempted but failed -patient was given 1 dose of IM diphenhydramine, Haldol and Ativan. Medical Decision Making Medical Decision Making MDM Narrative: -patient states that he did not fall, there are no signs of injury, imaging not indicated at this time. -patient is a chemical sedation, patient now resting comfortably. -plan: Metabolize to freedom and reassess for suicidality -patient awake, 21:51, alert, patient states that he is suicidal and planning to hang himself with a T-shirt. -care team consult pending -physician survey kasper started at 21:50 Differential Diagnosis Differential Diagnoses: The differential diagnosis associated with the presentation includes (Alcohol intoxication, substance abuse) Lab Data Labs: Lab Results 02/16/23 Range/Units 21:02 POC Glucose 142 H (60-115) mg/dL Medications Administered Discontinued Medications Generic Name Dose Route Start Last Admin Trade Name Freq PRN Reason Stop Dose Admin Diphenhydramine HCl 50 mg 02/16/23 15:49 02/16/23 15:55 Diphenhydramine Hcl 50 Mg/Ml Vial IM 02/16/23 15:50 50 mg ONCE ONE Administration Haloperidol Lactate 5 mg 02/16/23 15:49 02/16/23 15:55 Haloperidol Lactate 5 Mg/Ml Vial IM 02/16/23 15:50 5 mg ONCE ONE Administration Sodium Chloride 1,000 mls @ 999 mls/hr 02/16/23 18:23 02/16/23 19:13 Ns IVCONT 02/16/23 19:23 Infused .Q1H1M ONE Infusion Lorazepam 2 mg 02/16/23 15:40 02/16/23 16:02 Lorazepam 1 Mg Tablet PO 02/16/23 15:41 Not Given ONCE ONE Lorazepam 2 mg 02/16/23 15:49 02/16/23 15:55 Lorazepam 2 Mg/Ml Vial IM 02/16/23 15:50 2 mg STAT STA Administration Discharge Plan Discharge Clinical Impression: Alcoholic intoxication, Suicidal ideation Patient Disposition: Still a Patient Prescriptions: No Action atorvastatin 10 mg Tablet 10 mg PO DAILY Qty: 30 0RF chlorpromazine 100 mg Tablet 50 mg PO BEDTIME Qty: 30 0RF lisinopril 20 mg Tablet 20 mg PO DAILY Qty: 30 0RF Protocol: Hold for SBP< HOLD for SBP < : 90 fluoxetine 40 mg capsule 40 mg PO DAILY Qty: 30 0RF naltrexone 50 mg Tablet 50 mg PO DAILY Qty: 30 0RF cyanocobalamin (vitamin B-12) [Vitamin B-12] 1,000 mcg Tablet 1,000 mcg PO DAILY Qty: 30 0RF metformin 1,000 mg Tablet 1,000 mg PO BID Qty: 60 0RF omeprazole 20 mg Capsule,Delayed Release(Dr/Ec) 20 mg PO DAILY Qty: 30 0RF
[2023-02-16 16:30] VITALS: PULSE 120; RESP 18; O2SAT 95
[2023-02-16 18:00] VITALS: BP 94/59; PULSE 102; TEMP 36.4; O2SAT 90
--- NOTE | 2023-02-16 18:30 | PC.NURSE ---
pt up out of bed. cooperative but restless. Tech brought pt PB&J. Pt back in bed. Pt found to be slightly hypotensive. aware. 1 liter fluids ordered.
[2023-02-16] MEDS: 0.9 % Sodium Chloride 1,000 ML 999 ML IVCONT (18:35)
[2023-02-16 19:07] VITALS: BP 104/74; PULSE 97; RESP 16; TEMP 36.6; O2SAT 98
--- NOTE | 2023-02-16 19:11 | PC.NURSE ---
Assumed care of pt. Pt sleeping/resting at the bedside. No apparent distress noted. Breaths are even regular and unlabored. VSS. Sitter at bedside. Will continue to monitor.
[2023-02-16 19:26] VITALS: BP 95/53; PULSE 100; RESP 16; O2SAT 94
--- NOTE | 2023-02-16 20:36 | MHC.RECOVSUP ---
? Reason for consult:ETOH o? Current location:ED09? o? Identified substance use concern:? -? Support ? Intervention: o? Community resources provided ? Plan: o? Follow up tomorrow? ? Additional information:ELIDIA tried to speak with this pt but he was too intoxicated, he was still combative. Please follow up with him tomorrow.
--- NOTE | 2023-02-16 20:42 | PC.NURSE ---
Increased aggression note toward sitter. Security at bedside.
[2023-02-16 21:14] LABS: Glucose, Whole Blood 142 mg/dL (60-115)
--- NOTE | 2023-02-16 21:42 | PC.NURSE ---
Pt made SI statement to sitter at the bedside. When questioned pt reports SI statements I want to end this already. Reports having a plan to grab a t-shirt, wrap it around the neck and end his life. Clothing attire changed to be free of ligatures. Belongings not at bedside. Sitter to remain 1:[address] Velez informed.
[2023-02-16 22:39] LABS: Ethanol 189 mg/dL
[2023-02-16 23:08] VITALS: BP 93/58; PULSE 94; RESP 15; TEMP 36.8; O2SAT 94
[2023-02-17 00:21] VITALS: BP 110/71; PULSE 84; RESP 16; TEMP 36.4; O2SAT 97
--- NOTE | 2023-02-17 00:22 | MHC.EDTECH ---
i took over this 1;1 at 2330, vitals are documented and he ambulated to the restroom and back to bed, he keeps saying he wants to go home in [place]
[2023-02-17 04:48] VITALS: RESP 19
[2023-02-17 05:11] VITALS: BP 135/84; PULSE 103; RESP 16; TEMP 36.6; O2SAT 96
--- NOTE | 2023-02-17 05:11 | MHC.EDTECH ---
i took pver this 1;1 at 2330p, pt was still awake , some redirection but he was good, vitals taken urine obtain and sent to lab, pt been asleep since 0030 woke up for urinal and back to sleep
[2023-02-17 05:24] LABS: Amphetamine Screen Urine Not Detected (Not Detect); Barbiturates, Urine Not Detected (Not Detect); Benzodiazepines Screen Urine Not Detected (Not Detect); Cannabinoid Screen Urine Not Detected (Not Detect); Cocaine Screen Urine Not Detected (Not Detect); Fentanyl, urine Not Detected (Not Detect); Opiate Screen Urine Not Detected (Not Detect); Phencyclidine Screen Urine Not Detected (Not Detect)
--- NOTE | 2023-02-17 06:21 | PC.NURSE ---
Pt woke up this morning and asked, What happened last night? . CIWA assessment completed. CIWA score 0. Pt stated that he has never suffered from symptoms of alcohol withdrawal. Pt stated that he does not remember much from last night but denied any SI at this time.
[2023-02-17 08:23] VITALS: BP 151/89; PULSE 97; RESP 16; TEMP 36.7; O2SAT 95
--- NOTE | 2023-02-17 09:55 | PC.NURSE ---
Pt alert/oriented, grocery carrier used. Pt denies SI or HI at this time. States ETOH use approx 2-3 week but denies withdrawal sx or seizures. Skin pwd,
[2023-02-17 10:44] VITALS: BP 140/80; PULSE 84; RESP 16; O2SAT 96
[2023-02-17 11:13] LABS: MANUAL DIFF FLAG NO
[2023-02-17 11:18] LABS: Appearance Urine Clear; Color Urine Yellow; Glucose Urine UA Negative (Negative); Leukocyte Esterase Urine Negative (Negative); Nitrite Urine Negative (Negative); Urine Blood Negative (Negative); Urine Ketones Negative (Negative); Urine Protein Negative (Neg-Trace)
[2023-02-17 11:24] LABS: Bacteria Urine None Seen (None Seen); Basophils Absolute Auto 0.1 X10*3/uL (0.0-0.2); Basophils Percent Auto 0.8 % (0-2); Eosinophils Absolute Auto 0.2 X10*3/uL (0.0-0.4); Eosinophils Percent Auto 2.9 % (0-4); Hematocrit 36.8 % (42.0-52.0); Hemoglobin 12.2 g/dl (14.0-18.0); Hyaline Casts Urine 0-2 /LPF (0-2); Imm Gran Abs Auto 0.03 X10*3/uL (0.00-0.03); Imm Gran Pct Auto 0.4 % (0.0-0.4); Lymphocytes Absolute Auto 1.2 X10*3/uL (1.2-4.9); Lymphocytes Percent Auto 16.2 % (20-40); Mean Corpuscular HGB Conc 33.2 g/dl (31.0-36.0); Mean Corpuscular Hemoglobin 29.1 pg (27.0-33.0); Mean Corpuscular Volume 87.8 fL (80.0-98.0); Mean Platelet Volume 9.2 fL (9.4-12.4); Monocytes Absolute Auto 0.4 X10*3/uL (0.1-1.2); Monocytes Percent Auto 5.6 % (2-11); Neutrophils Absolute Auto 5.4 x10*3/uL (2.0-8.3); Neutrophils Percent Auto 74.1 % (45-73); Platelet Count 234 X10*3/uL (160-400); RBC Urine 0-2 /HPF (0-2); Red Blood Count 4.19 X10*6/uL (4.60-5.80); Red Cell Distribution Width 13.2 % (11.0-16.0); Squamous Epithelial Cell Urine 0-2 /HPF (0-2); WBC Urine 0-5 /HPF (0-5); White Blood Count 7.3 X10*3/uL (4.8-10.8)
[2023-02-17 11:33] LABS: Alanine Aminotransferase 230 U/L (0-40); Alkaline Phosphatase 119 U/L (39-117); Anion Gap 12 (12-20); Aspartate Amino Transferase 205 U/L (5-37); Bilirubin Total 0.6 mg/dL (0.0-1.0); Blood Urea Nitrogen 15 mg/dL (9-16); Calcium 8.7 mg/dL (8.4-10.2); Carbon Dioxide 30 mmol/L (22-29); Chloride 105 mmol/L (96-108); Creatinine Clr Calc Pharmacy 78.8; Estimated Glomerular Filt Rate > 60; Glucose Random 173 mg/dL (60-115); Potassium 4.7 mmol/L (3.3-5.1); Sodium 142 mmol/L (135-145); Total Protein 6.3 g/dL (6.5-8.0)
--- NOTE | 2023-02-17 13:41 | MHC.RECOVSUP ---
Met with pt in ED9 for potential ATS. Pt shares drinking 1 liter of Rum everyday or every other day for about 2 years. Pt has a history of attending [facility] about 1 year ago for services and has never been on [facility]. Pt has no other questions or concerns at this time.
--- NOTE | 2023-02-17 13:45 | PC.NURSE ---
Pt resting quietly. Seen by CARE team, awaits dispo
--- NOTE | 2023-02-17 14:25 | MHC.CARE ---
Patient cleared by CARE Team, he has denied suicidal ideation and requested detox, was referred to Recovery Team. ED provider ARTURO Charles updated with plan of care. See written assessment for details.
--- NOTE | 2023-02-17 15:16 | MHC.RECOVSUP ---
ATS bed search exhausted. [facility] advised calling them in the morning and they should be able to get pt in. T/W provided pt with resources and information to contact [facility] in the morning.
== END 2023-02-17 15:21 | disposition home or self-care (01) ==
PROVIDERS: Emergency Medicine; Emergency Medicine Emergency Medical Services; Emergency Provider Emergency Medicine
DX: F10.220 Alcohol dependence with intoxication, uncomplicated (principal); Y90.6 Blood alcohol level of 120-199 mg/100 ml; R45.851 Suicidal ideations; F32.A Depression, unspecified; F17.210 Nicotine dependence, cigarettes, uncomplicated; Z79.899 Other long term (current) drug therapy
CPT/HCPCS: 36415; 80053; 80307; 81001; 82077; 82947; 85025; 96360; 96372; 99285; J1200; J2060; S9485

== ENCOUNTER 2023-05-05 00:44 | Emergency (ER) | payer OTHER, SELFPAY ==
--- NOTE | ~2023-05-05 | XR_ITS ---
EXAMINATION: XR HAND, LEFT CLINICAL INFORMATION: Left hand swelling COMPARISON: None available. TECHNIQUE: PA, lateral, and oblique views of the left hand. FINDINGS: Osseous alignment is anatomic. There is mild degenerative change at the radiocarpal articulation. Mild degenerative change also noted at the basal joint of the thumb. No acute fracture is seen. No significant focal soft tissue abnormality identified. XR/XR hand LT min 3V IMPRESSION: No acute findings identified. Mild degenerative changes as noted above.
[2023-05-05 00:50] VITALS: BP 130/80; PULSE 95; O2SAT 95
[2023-05-05 01:05] VITALS: BP 99/57; PULSE 88; RESP 14; TEMP 36.4; O2SAT 94; BMI 24.9
[2023-05-05 04:15] VITALS: BP 116/69; PULSE 80; RESP 16; TEMP 36.8; O2SAT 96
[2023-05-05 05:04] VITALS: PULSE 80
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
[2023-05-05 07:43] VITALS: BP 110/61; PULSE 75; TEMP 36.6; O2SAT 95
== END 2023-05-05 09:07 | disposition home or self-care (01) ==
PROVIDERS: Emergency Provider Emergency Medicine
DX: F10.10 Alcohol abuse, uncomplicated (principal); Y90.9 Presence of alcohol in blood, level not specified; M79.89 Other specified soft tissue disorders; F17.210 Nicotine dependence, cigarettes, uncomplicated
CPT/HCPCS: 73130; 99283; 99285

== ENCOUNTER 2023-05-09 17:54 | Emergency (ER) | payer OTHER, SELFPAY ==
[2023-05-09 17:59] VITALS: BP 132/75; BP 154/80; PULSE 113; PULSE 114; RESP 18; TEMP 37.1; O2SAT 95; BMI 25.7
--- NOTE | 2023-05-09 18:42 | PC.NURSE ---
when speaking with the to with an rag grader pt said that he did not call the ambulance and that we wants to return home.
[2023-05-09 18:59] LABS: Appearance Urine Clear; Color Urine Yellow; Glucose Urine UA Negative (Negative); Leukocyte Esterase Urine Negative (Negative); Nitrite Urine Negative (Negative); PH 5.5 (5.0-9.0); Specific Gravity - Urine <= 1.005 (1.005-1.025); Urine Blood Negative (Negative); Urine Ketones Negative (Negative); Urine Protein Negative (Neg-Trace)
[2023-05-09 19:08] LABS: Amphetamine Screen Urine Not Detected (Not Detect); Barbiturates, Urine Not Detected (Not Detect); Benzodiazepines Screen Urine Not Detected (Not Detect); Cannabinoid Screen Urine POSITIVE (Not Detect); Cocaine Screen Urine Not Detected (Not Detect); Fentanyl, urine Not Detected (Not Detect); Opiate Screen Urine Not Detected (Not Detect); Phencyclidine Screen Urine Not Detected (Not Detect)
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
[2023-05-09 19:42] LABS: Basophils Absolute Auto 0.1 X10*3/uL (0.0-0.2); Basophils Percent Auto 0.8 % (0-2); Eosinophils Absolute Auto 0.2 X10*3/uL (0.0-0.4); Eosinophils Percent Auto 2.4 % (0-4); Hematocrit 35.6 % (42.0-52.0); Hemoglobin 11.7 g/dl (14.0-18.0); Imm Gran Abs Auto 0.04 X10*3/uL (0.00-0.03); Imm Gran Pct Auto 0.5 % (0.0-0.4); Lymphocytes Absolute Auto 2.1 X10*3/uL (1.2-4.9); Lymphocytes Percent Auto 26.5 % (20-40); MANUAL DIFF FLAG SCAN; Mean Corpuscular HGB Conc 32.9 g/dl (31.0-36.0); Mean Corpuscular Hemoglobin 28.8 pg (27.0-33.0); Mean Corpuscular Volume 87.7 fL (80.0-98.0); Mean Platelet Volume 9.9 fL (9.4-12.4); Monocytes Absolute Auto 0.5 X10*3/uL (0.1-1.2); Monocytes Percent Auto 5.6 % (2-11); Neutrophils Absolute Auto 5.1 x10*3/uL (2.0-8.3); Neutrophils Percent Auto 64.2 % (45-73); PLT CLUMP 1; Red Blood Count 4.06 X10*6/uL (4.60-5.80); Red Cell Distribution Width 13.5 % (11.0-16.0); SCAN SMEAR FLAG 1
[2023-05-09 19:45] LABS: COVID-19 Test Negative (Negative); IDNOW Serial# BCCEAD1C; INTERNATIONAL NORM RATIO 0.9 (0.9-1.1); Prothrombin Time 10.8 SEC (10.0-13.1)
[2023-05-09 20:04] LABS: Alanine Aminotransferase 50 U/L (0-40); Albumin Level 4.4 g/dL (3.5-5.0); Alkaline Phosphatase 94 U/L (39-117); Anion Gap 18 (12-20); Aspartate Amino Transferase 74 U/L (5-37); Bilirubin Direct 0.1 mg/dL (0.0-0.5); Bilirubin Total 0.3 mg/dL (0.0-1.0); Blood Urea Nitrogen 14 mg/dL (9-16); Calcium 8.5 mg/dL (8.4-10.2); Carbon Dioxide 19 mmol/L (22-29); Chloride 105 mmol/L (96-108); Creatinine Clr Calc Pharmacy 44.5; Estimated Glomerular Filt Rate 50; Ethanol 258 mg/dL; Glucose Random 161 mg/dL (60-115); Lipase 24 U/L (8-78); Magnesium 1.3 mg/dL (1.6-2.6); Potassium 4.7 mmol/L (3.3-5.1); Sodium 137 mmol/L (135-145); Total Protein 7.1 g/dL (6.5-8.0)
[2023-05-09] MEDS: LORazepam 1 MG TABLET 2 MG PO (20:08)
[2023-05-09 20:10] LABS: SLIDE REVIEW VERIFIED
[2023-05-09] MEDS: Magnesium Oxide 400 MG TABLET 800 MG PO (20:15)
--- NOTE | 2023-05-10 00:49 | PC.NURSE ---
pt d/c will happened in the am, Pt aware
--- NOTE | 2023-05-10 05:59 | PC.NURSE ---
pt slept during the shift. Pt to be d/c this am
[2023-05-10 06:01] VITALS: BP 134/82; PULSE 87; RESP 19; TEMP 37.2; O2SAT 96
== END 2023-05-10 06:39 | disposition home or self-care (01) ==
PROVIDERS: Physician Assistant Medical; Emergency Provider Emergency Medicine
DX: F33.1 Major depressive disorder, recurrent, moderate (principal); R45.851 Suicidal ideations; E83.42 Hypomagnesemia; F10.10 Alcohol abuse, uncomplicated; Y90.8 Blood alcohol level of 240 mg/100 ml or more; Z20.822 Contact with and (suspected) exposure to COVID-19; Z20.828 Contact with and (suspected) exposure to other viral communicable diseases; Z79.899 Other long term (current) drug therapy; F17.210 Nicotine dependence, cigarettes, uncomplicated; Z71.6 Tobacco abuse counseling
CPT/HCPCS: 36415; 80053; 80307; 81003; 82248; 83690; 83735; 85025; 85610; 87635; 99285

== ENCOUNTER 2023-05-17 19:53 | Emergency (ER) | payer OTHER, SELFPAY ==
[2023-05-17 20:03] VITALS: BP 138/86; PULSE 96; O2SAT 94
[2023-05-17 20:12] VITALS: BP 117/75; PULSE 85; RESP 15; TEMP 36.4; O2SAT 95
--- NOTE | 2023-05-17 20:13 | MHC.EDTECH ---
Patient inc and therefore changed over upon arrival
[2023-05-17 20:23] VITALS: BMI 27.8
[2023-05-17] MEDS: 0.9 % Sodium Chloride 1,000 ML 999 ML IV (20:51)
[2023-05-17 20:54] LABS: MANUAL DIFF FLAG NO
[2023-05-17 20:56] LABS: Appearance Urine Clear; Color Urine Yellow; Glucose Urine UA Negative (Negative); Leukocyte Esterase Urine Negative (Negative); Nitrite Urine Negative (Negative); PH 5.5 (5.0-9.0); Specific Gravity - Urine <= 1.005 (1.005-1.025); Urine Blood Negative (Negative); Urine Ketones Negative (Negative); Urine Protein Negative (Neg-Trace)
[2023-05-17 21:03] LABS: Basophils Absolute Auto 0.1 X10*3/uL (0.0-0.2); Basophils Percent Auto 0.9 % (0-2); Eosinophils Absolute Auto 0.2 X10*3/uL (0.0-0.4); Eosinophils Percent Auto 2.5 % (0-4); Hematocrit 35.1 % (42.0-52.0); Hemoglobin 11.5 g/dl (14.0-18.0); Imm Gran Abs Auto 0.04 X10*3/uL (0.00-0.03); Imm Gran Pct Auto 0.4 % (0.0-0.4); Lymphocytes Absolute Auto 2.7 X10*3/uL (1.2-4.9); Lymphocytes Percent Auto 29.3 % (20-40); Mean Corpuscular HGB Conc 32.8 g/dl (31.0-36.0); Mean Corpuscular Hemoglobin 29.2 pg (27.0-33.0); Mean Corpuscular Volume 89.1 fL (80.0-98.0); Mean Platelet Volume 9.2 fL (9.4-12.4); Monocytes Absolute Auto 0.6 X10*3/uL (0.1-1.2); Monocytes Percent Auto 6.5 % (2-11); Neutrophils Absolute Auto 5.6 x10*3/uL (2.0-8.3); Neutrophils Percent Auto 60.4 % (45-73); Platelet Count 251 X10*3/uL (160-400); Red Blood Count 3.94 X10*6/uL (4.60-5.80); Red Cell Distribution Width 14.6 % (11.0-16.0); White Blood Count 9.3 X10*3/uL (4.8-10.8)
[2023-05-17 21:09] LABS: Alanine Aminotransferase 23 U/L (0-40); Albumin Level 4.3 g/dL (3.5-5.0); Alkaline Phosphatase 80 U/L (39-117); Anion Gap 14 (12-20); Aspartate Amino Transferase 39 U/L (5-37); Bilirubin Total 0.3 mg/dL (0.0-1.0); Blood Urea Nitrogen 11 mg/dL (9-16); Calcium 9.1 mg/dL (8.4-10.2); Carbon Dioxide 26 mmol/L (22-29); Chloride 108 mmol/L (96-108); Creatinine Clr Calc Pharmacy 64.8; Estimated Glomerular Filt Rate > 60; Ethanol 236 mg/dL; Glucose Random 95 mg/dL (60-115); Lipase 31 U/L (8-78); Potassium 4.7 mmol/L (3.3-5.1); Sodium 143 mmol/L (135-145); Total Protein 7.1 g/dL (6.5-8.0)
--- NOTE | 2023-05-17 21:41 | ED.GENADULT ---
HPI - General Adult General Chief complaint: Dyspnea Stated complaint: etoh, back pain, per ems Time Seen by Provider: 05/17/23 19:59 Source: patient, EMS and audit manager Mode of arrival: EMS History of Present Illness HPI narrative: 62-year-old male brought in by EMS for alcohol intoxication and a report of fall with patient having chronic back pain. Patient states he has a headache and shortness of breath and complains of bilateral leg pain and stating that he can not feel his legs. Patient states that he fell because he thought he was flying. On further instruction patient was noted to be able to bend knees up to the chest with good leg control. Related Data Previous Rx's Medication Instructions Recorded atorvastatin 10 mg tablet 10 mg PO DAILY #30 tabs 02/09/23 chlorpromazine 100 mg tablet 50 mg PO BEDTIME #30 tabs 02/09/23 cyanocobalamin (vitamin B-12) 1,000 mcg PO DAILY #30 tabs 02/09/23 1,000 mcg tablet (Vitamin B-12) fluoxetine 40 mg capsule 40 mg PO DAILY #30 caps 02/09/23 lisinopril 20 mg tablet 20 mg PO DAILY #30 tabs 02/09/23 metformin 1,000 mg tablet 1,000 mg PO BID #60 tabs 02/09/23 naltrexone 50 mg tablet 50 mg PO DAILY #30 tabs 02/09/23 omeprazole 20 mg capsule,delayed 20 mg PO DAILY #30 caps 02/09/23 release Allergies Allergy/AdvReac Type Severity Reaction Status Date / Time sertraline [From ZOLOFT] Allergy Mild HEADACHES Verified 05/17/23 20:25 Review of Systems Review of Systems: Pertinent positives and negatives as stated in HPI [facility] Past Medical History Source: nursing notes reviewed Medical History Alcohol abuse Social History Social History Household Members: Other Household Members Other:: Currently homeless Housing: Other Housing Other:: none Do you presently have visiting nurse or other home services: No Alcohol intake: never Patient Tobacco Use Status: Current everyday Tobacco user Tobacco use type: Cigarette Cigarette Packs Per Day: 1 Cigarettes Per Day: 20.0 Years Smoked: 47 Smoked in Last 30 Days: No e-Cigarette/Vaping Use: Former Use Second Hand Smoke Exposure: No (homeless) Use of substances other than those prescribed or required for medical reasons: No Substance Use Type: Crack/Cocaine Advance Directives: No Advance Directives Information Provided: No service: No Sexual orientation: Straight/Heterosexual Physical Exam ED Vital Signs: Vital Signs - 24 hr 05/17/23 20:12 Temperature 97.6 F Pulse Rate 85 Respiratory Rate 15 Blood Pressure 117/75 Pulse Oximetry 95 Oxygen Delivery Method Room Air BMI result Body Mass Index 27.8 VITAL SIGNS: Reviewed. GENERAL: Well developed, well nourished, under the influence of some substance, in no acute distress. HEAD: Normocephalic/atraumatic EYES: PERRLA, EOMI EARS: Ext canals without abnormality NOSE: Nares patent bilateral OROPHARYNX: no oral lesions noted, posterior pharynx clear NECK: Supple, no adenopathy LUNGS: Normal breath sounds. No adventitious sounds or accessory muscle use. SpO2<95> CARDIOVASCULAR: Regular rate and rhythm without noted murmurs, no JVD or lower extremity edema. ABDOMEN: Soft, non-tender, non-distended with bowel sounds. MUSCULOSKELETAL: No tenderness, deformities, or effusions noted on gross inspection. EXTREMITIES: No cyanosis, clubbing or edema. SKIN: Inspection of the skin reveals no rashes NEUROLOGIC: Alert and oriented x 3. Strength and sensation to light touch were grossly intact x 4, cranial nerves 2-12 are grossly intact. Medications Administered Discontinued Medications Generic Name Dose Route Start Last Admin Trade Name Freq PRN Reason Stop Dose Admin Sodium Chloride 1,000 mls @ 999 mls/hr 05/17/23 20:30 05/17/23 20:51 Ns IV 05/17/23 21:30 999 mls/hr .Q1H1M [facility] Administration Medical Decision Making Medical Decision Making MDM Narrative: 62-year-old male with history and clinical presentation, DDX: Alcohol intoxication, B12 deficiency, less likely felt to have any pneumonia. Nursing staff reports the patient was able to ambulate to the bathroom without difficulty, no noted ataxia. I reviewed all investigations there is no evidence of acute anemia or infection as lab work appears to be chronically stable without demonstration of any leukocytosis/left shift or thrombocytopenia. Chemistry and disease are without acute abnormalities, specifically there is no evidence of MAGGIE, electrolyte derangements, or liver enzyme abnormalities. Urinalysis is negative for UTI or hematuria and alcohol levels noted to be 236. Patient will be placed on a CIWA and observed until he is clinically sober. My interpretation is this patient is intoxicated and has significant chronic alcohol use issues and is not interested in detox. He likely has corresponding B12 deficiency that is likely contributing to the peripheral neuropathy. Patient placed in physician observation because the patient needed more time to be clinically sober. At the time observation was started the patient's vital signs were stable, patient is alert and oriented, neuro: Nonfocal, CV RRR, lungs clear Differential Diagnosis Differential Diagnoses: The differential diagnosis associated with the presentation includes Please see the discussion above Admission/Observation Consideration of admission/observation: Escalation of care including admission/observation considered Please see the discussion above Lab Data MDM Lab Attestation statement: I reviewed the patient's lab results. Please see the discussion above 05/17/23 20:48 05/17/23 20:48 Labs: Lab Results 05/17/23 05/17/23 05/17/23 Range/Units 20:48 20:48 20:48 WBC 9.3 (4.8-10.8) X10*3/uL RBC 3.94 L (4.60-5.80) X10*6/uL Hgb 11.5 L (14.0-18.0) g/dl Hct 35.1 L (42.0-52.0) % MCV 89.1 (80.0-98.0) fL MCH 29.2 (27.0-33.0) pg MCHC 32.8 (31.0-36.0) g/dl RDW 14.6 (11.0-16.0) % Plt Count 251 (160-400) X10*3/uL MPV 9.2 L (9.4-12.4) fL Immature Gran % (Auto) 0.4 (0.0-0.4) % Neut % (Auto) 60.4 (45-73) % Lymph % (Auto) 29.3 (20-40) % Cooper % (Auto) 6.5 (2-11) % Eos % (Auto) 2.5 (0-4) % Baso % (Auto) 0.9 (0-2) % Lymph # (Auto) 2.7 (1.2-4.9) X10*3/uL Cooper # (Auto) 0.6 (0.1-1.2) X10*3/uL Eos # (Auto) 0.2 (0.0-0.4) X10*3/uL Baso # (Auto) 0.1 (0.0-0.2) X10*3/uL Abs Immat Gran (auto) 0.04 H (0.00-0.03) X10*3/uL Absolute Neuts (auto) 5.6 (2.0-8.3) x10*3/uL Absolute Nucleated RBC 0.000 (0.0-0.012) X10*3/uL Nucleated RBC % (auto) 0.0 (0.0-0.2) /100WBC Sodium 143 (135-145) mmol/L Potassium 4.7 (3.3-5.1) mmol/L Chloride 108 (96-108) mmol/L Carbon Dioxide 26 (22-29) mmol/L Anion Gap 14 (12-20) BUN 11 (9-16) mg/dL Creatinine 1.16 (0.5-1.4) mg/dL Estim Creat Clear Calc 64.8 Estimated GFR > 60 Random Glucose 95 (60-115) mg/dL Calcium 9.1 D (8.4-10.2) mg/dL Total Bilirubin 0.3 (0.0-1.0) mg/dL AST 39 H (5-37) U/L ALT 23 (0-40) U/L Alkaline Phosphatase 80 (39-117) U/L Total Protein 7.1 (6.5-8.0) g/dL Albumin 4.3 (3.5-5.0) g/dL Lipase 31 (8-78) U/L Urine Color Yellow Urine Appearance Clear Urine pH 5.5 (5.0-9.0) Ur Specific [place] <= 1.005 (1.005-1.025) Urine Protein Negative (Neg-Trace) mg/dL Urine Glucose (UA) Negative (Negative) mg/dL Urine Ketones Negative (Negative) mg/dL Urine Blood Negative (Negative) Urine Nitrite Negative (Negative) Ur Leukocyte Esterase Negative (Negative) Ethyl Alcohol 236 mg/dL External Record Review External record reviewed: Outpatient record and Prior outpatient labs Chronic Conditions Patient?s care impacted by: Diabetes and Hypertension Critical Care Time Critical Care Time Critical Care Time: Yes Total Critical Care Time: 30 Attestation: I personally attest to this time spent taking care of the patient. Discharge Plan Discharge Clinical Impression: Alcohol abuse, Alcohol intoxication, Alcoholic peripheral neuropathy Patient Disposition: Still a Patient Prescriptions: No Action atorvastatin 10 mg Tablet 10 mg PO DAILY Qty: 30 0RF chlorpromazine 100 mg Tablet 50 mg PO BEDTIME Qty: 30 0RF lisinopril 20 mg Tablet 20 mg PO DAILY Qty: 30 0RF Protocol: Hold for SBP< HOLD for SBP < : 90 fluoxetine 40 mg capsule 40 mg PO DAILY Qty: 30 0RF naltrexone 50 mg Tablet 50 mg PO DAILY Qty: 30 0RF cyanocobalamin (vitamin B-12) [Vitamin B-12] 1,000 mcg Tablet 1,000 mcg PO DAILY Qty: 30 0RF metformin 1,000 mg Tablet 1,000 mg PO BID Qty: 60 0RF omeprazole 20 mg Capsule,Delayed Release(Dr/Ec) 20 mg PO DAILY Qty: 30 0RF
[2023-05-18 03:33] VITALS: BP 108/60; PULSE 73; RESP 12; TEMP 37.1; O2SAT 95
[2023-05-18 05:34] VITALS: BP 119/62; PULSE 77; RESP 16; TEMP 36.3; O2SAT 94
--- NOTE | 2023-05-18 06:39 | PC.NURSE ---
notified pt reporting arthritic pain in knees, no new orders. Warm packs given and campbell wraps supplied.
== END 2023-05-18 07:30 | disposition home or self-care (01) ==
PROVIDERS: Emergency Provider Student in an Organized Health Care Education/Training Program
DX: F10.120 Alcohol abuse with intoxication, uncomplicated (principal); G62.1 Alcoholic polyneuropathy; F10.188 Alcohol abuse with other alcohol-induced disorder; Y90.7 Blood alcohol level of 200-239 mg/100 ml; F17.210 Nicotine dependence, cigarettes, uncomplicated; E53.8 Deficiency of other specified B group vitamins; Z79.899 Other long term (current) drug therapy
CPT/HCPCS: 36415; 80053; 80307; 81003; 83690; 85025; 96360; 96361; 99284; 99285

== ENCOUNTER 2023-05-21 09:25 | Emergency (ER) | payer OTHER, SELFPAY ==
--- NOTE | ~2023-05-21 | CT_ITS ---
EXAMINATION: CT CERVICAL SPINE WITHOUT CONTRAST CLINICAL INFORMATION: Neck pain status post fall. COMPARISON: None available. TECHNIQUE: Multiple axial images of the cervical spine were obtained without the administration of intravenous contrast. Coronal and sagittal reformatted images were obtained. This CT examination was performed using dose optimization techniques as appropriate, variously including the following: *Automated exposure control *Adjustment of mA and/or kV according to patient size (this includes techniques or standardized protocols for targeted exams where dose is matched to indication/reason for exam; i.e. extremities or head) *Use of iterative reconstruction technique DLP: 398.91 mGy-cm FINDINGS: There is normal cervical lordosis and spinal alignment. Prominent anterior osteophyte formation is seen from C2 to C7, most pronounced from C3 to C5. The odontoid process is intact with mild degenerative changes. The neural foramina are patent. The facet joints show mild to moderate arthropathy. The spinous and transverse processes are intact. Mild cervical dextroscoliosis is noted. The cervical soft tissues are unremarkable. There is no lymphadenopathy. The thyroid gland is unremarkable. CT/CT cervical spine wo IV con IMPRESSION: Multilevel degenerative changes without acute abnormality. Fleischner guidelines were followed.
--- NOTE | ~2023-05-21 | CT_ITS ---
EXAMINATION: CT HEAD WITHOUT CONTRAST CLINICAL INFORMATION: Status post fall with head strike. COMPARISON: Head CT scan dated 08/02/2022. TECHNIQUE: Contiguous axial imaging was performed from the skull base to vertex without intravenous administration of contrast. Coronal and sagittal reformatted images were obtained. This CT examination was performed using dose optimization techniques as appropriate, variously including the following: *Automated exposure control *Adjustment of mA and/or kV according to patient size (this includes techniques or standardized protocols for targeted exams where dose is matched to indication/reason for exam; i.e. extremities or head) *Use of iterative reconstruction technique DLP: 682.94 mGy-cm FINDINGS: There is mild widening of the cortical sulci and associated ventriculomegaly. The lateral ventricles are symmetrical. The third and fourth ventricles are in their normal midline position. The basilar and prepontine cisterns are unremarkable. Minimal periventricular microvascular changes are seen. There is no acute intra or extracerebral abnormality. There is no mass effect or midline shift. Sections through the bony calvarium are unremarkable. The orbits are intact. The paranasal sinuses are clear. The mastoid air cells are clear. CT/CT head/brain wo IV con IMPRESSION: No acute intracranial pathology.
--- NOTE | ~2023-05-21 | XR_ITS ---
EXAMINATION: XR CHEST CLINICAL INFORMATION: Status post fall with chest trauma. COMPARISON: Chest and rib radiographs dated 05/26/2021. Chest CT scan dated 08/02/2022. TECHNIQUE: Frontal view of the chest was obtained. FINDINGS: The lungs are clear. There is no pneumothorax. The heart and mediastinal structures are unremarkable. Deformity is seen in the ribs bilaterally. XR/XR chest 1V IMPRESSION: 1. No acute cardiopulmonary process. 2. Multilevel bilateral rib fractures appear chronic and correlate with previous imaging findings. If suspicion for acute fracture remains high, dedicated left rib radiographs with a skin marker recommended.
[2023-05-21 09:38] VITALS: BP 133/84; PULSE 93; RESP 12; TEMP 36.4; O2SAT 97
[2023-05-21 09:52] VITALS: BP 142/82; PULSE 89; O2SAT 96; BMI 31.3
[2023-05-21 10:01] LABS: Amphetamine Screen Urine Not Detected (Not Detect); Barbiturates, Urine Not Detected (Not Detect); Benzodiazepines Screen Urine Not Detected (Not Detect); Cannabinoid Screen Urine POSITIVE (Not Detect); Cocaine Screen Urine Not Detected (Not Detect); Fentanyl, urine Not Detected (Not Detect); Opiate Screen Urine Not Detected (Not Detect); Phencyclidine Screen Urine Not Detected (Not Detect)
--- NOTE | 2023-05-21 10:01 | ED.ALCOHOL ---
HPI - Alcohol General Chief Complaint: ETOH/Substance Use Stated Complaint: ETOH per EMS Time Seen by Provider: 05/21/23 09:31 Source: patient and EMS Mode of arrival: EMS Limitations: other (Patient very intoxicated) History of Present Illness HPI narrative: 62-year-old male presents with acute alcohol intoxication patient reports drinking a lot however unable to quantify how much. Patient states he fell and hit his head however poor historian. Patient intermittently answering questions appropriately. Patient is screaming upon arrival, not cooperative. Unable to obtain an accurate history and review of systems. No SI or HI. Related Data Previous Rx's Medication Instructions Recorded atorvastatin 10 mg tablet 10 mg PO DAILY #30 tabs 02/09/23 chlorpromazine 100 mg tablet 50 mg PO BEDTIME #30 tabs 02/09/23 cyanocobalamin (vitamin B-12) 1,000 mcg PO DAILY #30 tabs 02/09/23 1,000 mcg tablet (Vitamin B-12) fluoxetine 40 mg capsule 40 mg PO DAILY #30 caps 02/09/23 lisinopril 20 mg tablet 20 mg PO DAILY #30 tabs 02/09/23 metformin 1,000 mg tablet 1,000 mg PO BID #60 tabs 02/09/23 naltrexone 50 mg tablet 50 mg PO DAILY #30 tabs 02/09/23 omeprazole 20 mg capsule,delayed 20 mg PO DAILY #30 caps 02/09/23 release Allergies Allergy/AdvReac Type Severity Reaction Status Date / Time sertraline [From ZOLOFT] Allergy Mild HEADACHES Verified 05/17/23 20:25 Review of Systems Review of Systems: Yes Unobtainable due to mental status PMFSH Past Medical History Attestation statement: The following information was validated with the patient. Source: old records reviewed and nursing notes reviewed Medical History Alcohol abuse Social History Social History Household Members: Other Household Members Other:: Currently homeless Housing: Other Housing Other:: none Do you presently have visiting nurse or other home services: No Alcohol intake: current Alcohol intake frequency: 3 or more drinks per day Patient Tobacco Use Status: Current everyday Tobacco user Tobacco use type: Cigarette Cigarette Packs Per Day: 1 Cigarettes Per Day: 20.0 Years Smoked: 47 e-Cigarette/Vaping Use: Former Use Second Hand Smoke Exposure: No (homeless) Substance Use Type: Crack/Cocaine Advance Directives: No Advance Directives Information Provided: No service: No Sexual orientation: Straight/Heterosexual Physical Exam ED Vital Signs: Vital Signs - 24 hr 05/21/23 09:38 05/21/23 10:52 Temperature 97.5 F 97.9 F Pulse Rate 93 87 Respiratory Rate 12 14 Blood Pressure 133/84 120/74 Pulse Oximetry 97 97 Oxygen Delivery Method Room Air Room Air BMI result Body Mass Index 31.3 vss Appearance: Alert.? Oriented X3.? No acute distress.? Patient smells like alcohol. Combative towards staff members. Head: Normocephalic, atraumatic, no step-offs or deformities Eyes: Pupils equal, round and reactive to light.? ENT: Pharynx normal.? Neck: Normal inspection.? Neck supple.? CVS: Normal heart rate and rhythm.? Pulses normal.? Respiratory: No respiratory distress.? Breath sounds normal.? Abdomen: Soft and nontender.? Skin: Skin warm and dry.? Normal skin color.? Normal skin turgor.? Extremities: No lower extremity edema.? No calf ttp. 5/5 strength to bilateral upper and lower extremities Neuro: Oriented X 3.? No motor deficit.? No sensory deficit. CN 2-12 intact . Ambulating with steady gait normal coordination. Course Reevaluation(s) Reevaluation #1: CBC with no acute findings. Chemistry with no acute findings requiring intervention. Urine toxicology positive for marijuana. Ethanol 257. CT of head no acute intracranial pathology. CT of cervical spine multilevel degenerative changes without acute abnormality. Chest x-ray no acute cardiopulmonary process. Multilevel bilateral rib fractures appear chronic, no skin changes on exam, no point tenderness. Unlikely that these are acute fractures. No signs of flail chest or pneumothorax. Patient ambulatory trying to leave the department multiple times redirected back to his bed. Will reach out to family members prese sober ride home. Likely acute alcohol intoxication causing patient's presentation. Time: 12:07 Reevaluation #2: Alert and oriented x4, appears clinically sober. Educated patient on diagnosis and treatment plan, answered all question, patient verbalizes understanding. At this time patient will be discharged home, advised to return with new or worsening symptoms. Educated on worrisome signs and symptoms and when to return. At this time I feel comfortable discharge home. No si or hi Time: 15:30 Medical Decision Making Medical Decision Making [facility] Narrative: 09 62-year-old male presents with acute alcohol intoxication and fall, for story and unable to tell me of the to drink. However, ambulating with steady gait normal coordination, oriented x4. Intermittently answering questions appropriately. Not on blood thinners. Physical exam patient smells like alcohol. Neuro nonfocal. Ambulatory with steady gait. Likely alcohol intoxication. Unlikely intracranial hemorrhage, stroke, posterior stroke, unlikely traumatic injuries head, neck, chest, abdomen or pelvis. Unlikely metabolic derangement On arrival patient combative toward security, punching. Redirected back towards the bed Plan at this time labs, imaging. Differential Diagnosis Differential Diagnoses: The differential diagnosis associated with the presentation includes Likely alcohol intoxication. Unlikely intracranial hemorrhage, stroke, posterior stroke, unlikely traumatic injuries head, neck, chest, abdomen or pelvis. Unlikely metabolic derangement Admission/Observation Consideration of admission/observation: Escalation of care including admission/observation considered Lab Data 05/21/23 11:23 05/21/23 11:23 Labs: Lab Results 05/21/23 05/21/23 05/21/23 Range/Units 09:43 11:23 11:23 WBC 7.7 (4.8-10.8) X10*3/uL RBC 3.90 L (4.60-5.80) X10*6/uL Hgb 11.5 L (14.0-18.0) g/dl Hct 34.8 L (42.0-52.0) % MCV 89.2 (80.0-98.0) fL MCH 29.5 (27.0-33.0) pg MCHC 33.0 (31.0-36.0) g/dl RDW 14.8 (11.0-16.0) % Plt Count 257 (160-400) X10*3/uL MPV 9.2 L (9.4-12.4) fL Immature Gran % (Auto) 0.4 (0.0-0.4) % Neut % (Auto) 65.2 (45-73) % Lymph % (Auto) 24.9 (20-40) % Gibson % (Auto) 6.4 (2-11) % Eos % (Auto) 2.6 (0-4) % Baso % (Auto) 0.5 (0-2) % Lymph # (Auto) 1.9 (1.2-4.9) X10*3/uL Gibson # (Auto) 0.5 (0.1-1.2) X10*3/uL Eos # (Auto) 0.2 (0.0-0.4) X10*3/uL Baso # (Auto) 0.0 (0.0-0.2) X10*3/uL Abs Immat Gran (auto) 0.03 (0.00-0.03) X10*3/uL Absolute Neuts (auto) 5.0 (2.0-8.3) x10*3/uL Absolute Nucleated RBC 0.000 (0.0-0.012) X10*3/uL Nucleated RBC % (auto) 0.0 (0.0-0.2) /100WBC Sodium 139 (135-145) mmol/L Potassium 4.2 (3.3-5.1) mmol/L Chloride 104 (96-108) mmol/L Carbon Dioxide 19 L (22-29) mmol/L Anion Gap 20 (12-20) BUN 11 (9-16) mg/dL Creatinine 1.26 (0.5-1.4) mg/dL Estim Creat Clear Calc 65.2 Estimated GFR 58 Random Glucose 143 H (60-115) mg/dL Calcium 9.1 (8.4-10.2) mg/dL Total Bilirubin 0.4 (0.0-1.0) mg/dL AST 50 H (5-37) U/L ALT 24 (0-40) U/L Alkaline Phosphatase 82 (39-117) U/L Total Protein 7.3 (6.5-8.0) g/dL Albumin 4.4 (3.5-5.0) g/dL Urine Opiates Screen Not Detected (Not Detect) Urine Fentanyl Screen Not Detected (Not Detect) Ur Barbiturates Screen Not Detected (Not Detect) Ur Phencyclidine Scrn Not Detected (Not Detect) Ur Amphetamines Screen Not Detected (Not Detect) U Benzodiazepines Scrn Not Detected (Not Detect) Urine Cocaine Screen Not Detected (Not Detect) U Marijuana (THC) Screen POSITIVE H (Not Detect) Ethyl Alcohol 257 mg/dL Core Measures AMI core measures followed: Yes Measure exclusions: not indicated Medications Administered Discontinued Medications Generic Name Dose Route Start Last Admin Trade Name [place] JESUS Reason Stop Dose Admin Haloperidol 5 mg 05/21/23 10:10 05/21/23 10:16 Haloperidol 5 Mg Tablet PO 05/21/23 10:11 5 mg ONCE ONE Administration Lorazepam 1 mg 05/21/23 10:10 05/21/23 10:16 Lorazepam 1 Mg Tablet PO 05/21/23 10:11 1 mg ONCE ONE Administration Critical Care Time Critical Care Time Critical Care Time: No Discharge Plan Discharge Clinical Impression: Alcohol abuse, Alcoholic intoxication Patient Disposition: Home, Self-Care Instructions: Alcohol Intoxication (ED), Abuse of Alcohol (DC) Additional Instructions: Take your medications as prescribed. If you were prescribed antibiotics today, it is important that you take your medication to their entirety, do not skip any doses, do not finish them early. Follow-up with your primary care provider this week. Return to the emergency department with new or worsening symptoms. Such as fevers, chills, chest pain, shortness of breath, nausea, vomiting, dizziness, headache, vision changes, lethargy In case of emergency call 911 Prescriptions: No Action atorvastatin 10 mg Tablet 10 mg PO DAILY Qty: 30 0RF chlorpromazine 100 mg Tablet 50 mg PO BEDTIME Qty: 30 0RF lisinopril 20 mg Tablet 20 mg PO DAILY Qty: 30 0RF Protocol: Hold for SBP< HOLD for SBP < : 90 fluoxetine 40 mg capsule 40 mg PO DAILY Qty: 30 0RF naltrexone 50 mg Tablet 50 mg PO DAILY Qty: 30 0RF cyanocobalamin (vitamin B-12) [Vitamin B-12] 1,000 mcg Tablet 1,000 mcg PO DAILY Qty: 30 0RF metformin 1,000 mg Tablet 1,000 mg PO BID Qty: 60 0RF omeprazole 20 mg Capsule,Delayed Release(Dr/Ec) 20 mg PO DAILY Qty: 30 0RF Referrals: Physician,None [Primary Care Provider] - 2 days Stand Alone Forms: Work/School Release
[2023-05-21] MEDS: LORazepam 1 MG TABLET PO (10:16)
[2023-05-21] MEDS: HaloperidoL 5 MG TABLET PO (10:16)
--- NOTE | 2023-05-21 10:27 | MHC.EDTECH ---
Received a call from security. They stated they put pt belongings in locker #8 in the pod.
--- NOTE | 2023-05-21 10:41 | PC.NURSE ---
Pt verbally aggressive toward selective staff, wandering, difficult to redirect, PRN medication administered by mouth with positive effect, Pt request a sandwich and fluids, both given, Pt currently resting on bed comfortably with no apparent pain or discomfort noted.
[2023-05-21 10:52] VITALS: BP 120/74; PULSE 87; RESP 14; TEMP 36.6; O2SAT 97
[2023-05-21 11:36] LABS: MANUAL DIFF FLAG NO
[2023-05-21 11:42] LABS: Basophils Percent Auto 0.5 % (0-2); Eosinophils Absolute Auto 0.2 X10*3/uL (0.0-0.4); Eosinophils Percent Auto 2.6 % (0-4); Hematocrit 34.8 % (42.0-52.0); Hemoglobin 11.5 g/dl (14.0-18.0); Imm Gran Abs Auto 0.03 X10*3/uL (0.00-0.03); Imm Gran Pct Auto 0.4 % (0.0-0.4); Lymphocytes Absolute Auto 1.9 X10*3/uL (1.2-4.9); Lymphocytes Percent Auto 24.9 % (20-40); Mean Corpuscular Hemoglobin 29.5 pg (27.0-33.0); Mean Corpuscular Volume 89.2 fL (80.0-98.0); Mean Platelet Volume 9.2 fL (9.4-12.4); Monocytes Absolute Auto 0.5 X10*3/uL (0.1-1.2); Monocytes Percent Auto 6.4 % (2-11); Neutrophils Percent Auto 65.2 % (45-73); Platelet Count 257 X10*3/uL (160-400); Red Cell Distribution Width 14.8 % (11.0-16.0); White Blood Count 7.7 X10*3/uL (4.8-10.8)
[2023-05-21 11:53] LABS: Alanine Aminotransferase 24 U/L (0-40); Albumin Level 4.4 g/dL (3.5-5.0); Alkaline Phosphatase 82 U/L (39-117); Anion Gap 20 (12-20); Aspartate Amino Transferase 50 U/L (5-37); Bilirubin Total 0.4 mg/dL (0.0-1.0); Blood Urea Nitrogen 11 mg/dL (9-16); Calcium 9.1 mg/dL (8.4-10.2); Carbon Dioxide 19 mmol/L (22-29); Chloride 104 mmol/L (96-108); Creatinine Clr Calc Pharmacy 65.2; Estimated Glomerular Filt Rate 58; Ethanol 257 mg/dL; Glucose Random 143 mg/dL (60-115); Potassium 4.2 mmol/L (3.3-5.1); Sodium 139 mmol/L (135-145); Total Protein 7.3 g/dL (6.5-8.0)
--- NOTE | 2023-05-21 12:08 | PC.NURSE ---
attempt to call significant other listed in contacts for ride home. not a working number.
--- NOTE | 2023-05-21 12:28 | PC.NURSE ---
Pt currently intoxicated, unable to complete.
== END 2023-05-21 15:36 | disposition home or self-care (01) ==
PROVIDERS: Physician Assistant; Emergency Provider Emergency Medicine Emergency Medical Services
DX: F10.129 Alcohol abuse with intoxication, unspecified (principal); Y90.8 Blood alcohol level of 240 mg/100 ml or more; R51.9 Headache, unspecified; R07.89 Other chest pain; M54.2 Cervicalgia; Z79.899 Other long term (current) drug therapy
CPT/HCPCS: 36415; 70450; 71045; 72125; 80053; 80307; 85025; 99284

== ENCOUNTER 2023-05-30 19:16 | Emergency (ER) | payer OTHER, SELFPAY ==
--- NOTE | ~2023-05-30 | CT_ITS ---
EXAMINATION: HEAD CT WITHOUT CONTRAST CERVICAL SPINE CT WITHOUT CONTRAST CLINICAL INFORMATION: Fall. COMPARISON: None. TECHNIQUE: Contiguous axial imaging of the head was performed without the administration of IV contrast. Axial multidetector volumetric images were also performed through the cervical spine without intravenous contrast. Multiplanar reconstructed images in coronal and sagittal orientations were submitted. This CT examination was performed using dose optimization techniques as appropriate, variously including the following: *Automated exposure control *Adjustment of mA and/or kV according to patient size (this includes techniques or standardized protocols for targeted exams where dose is matched to indication/reason for exam; i.e. extremities or head) *Use of iterative reconstruction technique. Of note, this examination has yet to be completed in the system at the time of dictation. DOSE: 1087 mGy-cm FINDINGS: HEAD: There is a small focus of subarachnoid hemorrhage within the right posterior frontal cortex which is hyperdense and likely healed. No additional foci of intracranial hemorrhage are identified. There is no evidence of acute territorial infarction. No abnormal mass-effect or midline shift. No extra-axial fluid collections. Adams to white matter differentiation is well preserved. Mild enlargement of the ventricles, sulci, and extra-axial CSF spaces is indicative of parenchymal volume loss. A few foci of hypoattenuation in the subcortical and periventricular white matter are most consistent with chronic microangiopathic changes. Persistent cavum septum pellucidum. No acute fractures are identified. There is a small kristy hole within the right parietal calvarium laterally. There is a thin subgaleal fluid collection over the parieto-occipital calvarium. Focal soft tissue hematoma suspected over the right frontotemporal calvarium. Mild soft tissue swelling diffusely. The nasal bone is fractured. Blue orbits are unremarkable. Small amount of mucus within the right frontal and left ethmoid sinuses. Mastoid air cells are clear. CERVICAL SPINE: Vertebral body heights are normal. No fractures of the vertebral bodies or posterior elements. Mild right convex cervical scoliosis. Vertebral alignment is otherwise normal. No subluxation. Degenerative changes are present at the craniocervical and atlantoaxial articulations, though normal alignment is maintained. Large, exuberant anterior osteophytes are present in the cervical spine. There is ossification of the nuchal ligament focally. Moderate facet arthropathy is evident in the left at C2-C3, C4-C5, and C5-C6. Central canal appears patent without appreciable stenoses. Facet osteophytes produce neural foraminal encroachment on the left at C2-C3, C4-C5, and C5-C6. No significant paravertebral soft tissue swelling. Cervical soft tissues are unremarkable. Imaged portions of the lung apices are clear. CT/CT cervical spine wo IV con IMPRESSION: 1. A small focus of acute subarachnoid hemorrhage in the right posterior frontal cortex. No additional foci of intracranial hemorrhage. No extra-axial fluid collections. 2. No acute fracture or malalignment in the cervical spine. 3. Nasal bone fracture. 4. Small subgaleal hematoma over the parieto-occipital calvarium and a superficial subcutaneous hematoma over the right lateral frontal calvarium. No underlying calvarial fractures. This critical result was discussed by telephone with Dr. Asher on 05/30/2023 10:21 PM.
--- NOTE | 2023-05-30 19:20 | ED_ITS ---
HPI - Altered Mental Status General Chief Complaint: Fall Stated Complaint: fall Time Seen by Provider: 05/30/23 19:20 Source: patient Mode of arrival: ambulatory Limitations: no limitations History of Present Illness HPI narrative: Patient history of alcohol abuse was found in the alley semiresponsive after having few drinks. Bystander saw him falling down to the ground patient says that he had a lot of drinks today in the superficial abrasion at the top of the head, intoxicated and confused on arrival no seizures no other injury not on AC/aspirin Related Data Previous Rx's Medication Instructions Recorded atorvastatin 10 mg tablet 10 mg PO DAILY #30 tabs 02/09/23 chlorpromazine 100 mg tablet 50 mg PO BEDTIME #30 tabs 02/09/23 cyanocobalamin (vitamin B-12) 1,000 mcg PO DAILY #30 tabs 02/09/23 1,000 mcg tablet (Vitamin B-12) fluoxetine 40 mg capsule 40 mg PO DAILY #30 caps 02/09/23 lisinopril 20 mg tablet 20 mg PO DAILY #30 tabs 02/09/23 metformin 1,000 mg tablet 1,000 mg PO BID #60 tabs 02/09/23 naltrexone 50 mg tablet 50 mg PO DAILY #30 tabs 02/09/23 omeprazole 20 mg capsule,delayed 20 mg PO DAILY #30 caps 02/09/23 release Allergies Allergy/AdvReac Type Severity Reaction Status Date / Time sertraline [From [facility]OLO[facility]] Allergy Mild HEADACHES Verified 05/17/23 20:25 Review of Systems Review of Systems: Yes Unobtainable due to mental status PMFSH Past Medical History Medical History Alcohol abuse Social History Social History Household Members: Other Household Members Other:: Currently homeless Housing: Other Housing Other:: none Do you presently have visiting nurse or other home services: No Alcohol intake: current Alcohol intake frequency: 3 or more drinks per day Patient Tobacco Use Status: Current everyday Tobacco user Tobacco use type: Cigarette Cigarette Packs Per Day: 1 Cigarettes Per Day: 20.0 Years Smoked: 47 e-Cigarette/Vaping Use: Former Use Second Hand Smoke Exposure: No (homeless) Use of substances other than those prescribed or required for medical reasons: Unknown Substance Use Type: Crack/Cocaine Advance Directives: No Advance Directives Information Provided: No service: No Sexual orientation: Straight/Heterosexual Physical Exam ED Vital Signs: Vital Signs - 24 hr 05/30/23 19:42 Temperature 98.0 F Pulse Rate 83 Respiratory Rate 13 Blood Pressure 113/65 Pulse Oximetry 99 Oxygen Delivery Method Nasal Cannula BMI result Body Mass Index 30.3 Appearance: Alert. Oriented X2. No acute distress. gcs 15 Eyes: Right pupil 4 mm left pupil 3 mm react to light No Nystagmus ENT: Pharynx normal. Oral Mucosa moist, superficial abrasion the top of the head ecchymosis around the right eye and the nose no nasal bleed Neck: Normal inspection. Neck supple. No midline tenderness cervical collar in place CVS: Normal heart rate and rhythm. Pulses normal. Respiratory: No respiratory distress. Equal air entry bilateral, no wheezing/rales/rhonchi Abdomen: Soft and nontender. Bowel sounds are present, no mass palpable, no CVA tenderness Skin: Skin warm and dry. Normal skin color. Normal skin turgor. Extremities: No lower extremity edema. No calf tenderness Neuro: Oriented X 2-3. No motor deficit. No sensory deficit.No cerebellar signs , cranial nerves II-XII intact Medications Administered Discontinued Medications Generic Name Dose Route Start Last Admin Trade Name Freq PRN Reason Stop Dose Admin Acetaminophen 650 mg 05/30/23 22:33 05/30/23 22:37 Acetaminophen 325 Mg Tablet PO 05/30/23 22:34 650 mg ONCE ONE Administration Sodium Chloride 1,000 mls @ 999 mls/hr 05/30/23 19:23 05/30/23 21:15 Ns IV 05/30/23 20:23 Infused .Q1H1M ONE Infusion Magnesium Sulfate 2 gm in 50 mls @ 100 mls/hr 05/30/23 22:33 05/30/23 23:15 Magnesium Sulfate/H2o IV 05/30/23 23:02 Infused ONCE ONE Infusion Medical Decision Making Medical Decision Making MDM Narrative: Patient alcoholic status post fall intoxicated GCS of 15 CT scan showed small SAH right frontal lobe transfer patient to [facility] for traumatic subarachnoid bleed 00:20 EMS here to take the patient to [facility] patient GCS 15 vital stable ambulatory in the ED received 2 g of magnesium in the ER for magnesium of 1.1 Lab Data [facility] Lab Attestation statement: I reviewed the patient's lab results. 05/30/23 19:39 05/30/23 19:39 Labs: Lab Results 05/30/23 05/30/23 05/30/23 Range/Units 19:39 19:39 19:39 WBC 6.9 (4.8-10.8) X10*3/uL RBC 3.65 L (4.60-5.80) X10*6/uL Hgb 10.6 L (14.0-18.0) g/dl Hct 33.1 L (42.0-52.0) % MCV 90.7 (80.0-98.0) fL MCH 29.0 (27.0-33.0) pg MCHC 32.0 (31.0-36.0) g/dl RDW 15.3 (11.0-16.0) % Plt Count 249 (160-400) X10*3/uL MPV 9.2 L (9.4-12.4) fL Immature Gran % (Auto) 0.3 (0.0-0.4) % Neut % (Auto) 63.1 (45-73) % Lymph % (Auto) 25.0 (20-40) % [place] % (Auto) 7.7 (2-11) % Eos % (Auto) 2.9 (0-4) % Baso % (Auto) 1.0 (0-2) % Lymph # (Auto) 1.7 (1.2-4.9) X10*3/uL [place] # (Auto) 0.5 (0.1-1.2) X10*3/uL Eos # (Auto) 0.2 (0.0-0.4) X10*3/uL Baso # (Auto) 0.1 (0.0-0.2) X10*3/uL Abs Immat Gran (auto) 0.02 (0.00-0.03) X10*3/uL Absolute Neuts (auto) 4.4 (2.0-8.3) x10*3/uL Absolute Nucleated RBC 0.000 (0.0-0.012) X10*3/uL Nucleated RBC % (auto) 0.0 (0.0-0.2) /100WBC PT 12.3 (11.1-13.3) SEC INR 1.0 (0.9-1.1) Sodium 143 (135-145) mmol/L Potassium 4.0 (3.3-5.1) mmol/L Chloride 110 H (96-108) mmol/L Carbon Dioxide 19 L (22-29) mmol/L Anion Gap 18 (12-20) BUN 13 (9-16) mg/dL Creatinine 1.04 (0.5-1.4) mg/dL Estim Creat Clear Calc 72.8 Estimated GFR > 60 POC Glucose (60-115) mg/dL Random Glucose 99 (60-115) mg/dL Calcium 8.4 D (8.4-10.2) mg/dL Magnesium 1.1 L* (1.6-2.6) mg/dL Total Bilirubin 0.5 (0.0-1.0) mg/dL AST 80 H (5-37) U/L ALT 31 (0-40) U/L Alkaline Phosphatase 101 (39-117) U/L Troponin I High Sens (<3.5-35.0) ng/L Total Protein 6.8 (6.5-8.0) g/dL Albumin 3.8 (3.5-5.0) g/dL Urine Opiates Screen (Not Detect) Urine Fentanyl Screen (Not Detect) Ur Barbiturates Screen (Not Detect) Ur Phencyclidine Scrn (Not Detect) Ur Amphetamines Screen (Not Detect) U Benzodiazepines Scrn (Not Detect) Urine Cocaine Screen (Not Detect) U Marijuana (THC) Screen (Not Detect) Ethyl Alcohol mg/dL 05/30/23 05/30/23 05/30/23 Range/Units 19:39 19:39 19:50 WBC (4.8-10.8) X10*3/uL RBC (4.60-5.80) X10*6/uL Hgb (14.0-18.0) g/dl Hct (42.0-52.0) % MCV (80.0-98.0) fL MCH (27.0-33.0) pg MCHC (31.0-36.0) g/dl RDW (11.0-16.0) % Plt Count (160-400) X10*3/uL MPV (9.4-12.4) fL Immature Gran % (Auto) (0.0-0.4) % Neut % (Auto) (45-73) % Lymph % (Auto) (20-40) % [place] % (Auto) (2-11) % Eos % (Auto) (0-4) % Baso % (Auto) (0-2) % Lymph # (Auto) (1.2-4.9) X10*3/uL [place] # (Auto) (0.1-1.2) X10*3/uL Eos # (Auto) (0.0-0.4) X10*3/uL Baso # (Auto) (0.0-0.2) X10*3/uL Abs Immat Gran (auto) (0.00-0.03) X10*3/uL Absolute Neuts (auto) (2.0-8.3) x10*3/uL Absolute Nucleated RBC (0.0-0.012) X10*3/uL Nucleated RBC % (auto) (0.0-0.2) /100WBC PT (11.1-13.3) SEC INR (0.9-1.1) Sodium (135-145) mmol/L Potassium (3.3-5.1) mmol/L Chloride (96-108) mmol/L Carbon Dioxide (22-29) mmol/L Anion Gap (12-20) BUN (9-16) mg/dL Creatinine (0.5-1.4) mg/dL Estim Creat Clear Calc Estimated GFR POC Glucose (60-115) mg/dL Random Glucose (60-115) mg/dL Calcium (8.4-10.2) mg/dL Magnesium (1.6-2.6) mg/dL Total Bilirubin (0.0-1.0) mg/dL AST (5-37) U/L ALT (0-40) U/L Alkaline Phosphatase (39-117) U/L Troponin I High Sens 5.7 D (<3.5-35.0) ng/L Total Protein (6.5-8.0) g/dL Albumin (3.5-5.0) g/dL Urine Opiates Screen Not Detected (Not Detect) Urine Fentanyl Screen Not Detected (Not Detect) Ur Barbiturates Screen POSITIVE H (Not Detect) Ur Phencyclidine Scrn Not Detected (Not Detect) Ur Amphetamines Screen Not Detected (Not Detect) U Benzodiazepines Scrn Not Detected (Not Detect) Urine Cocaine Screen Not Detected (Not Detect) U Marijuana (THC) Screen POSITIVE H (Not Detect) Ethyl Alcohol 261 mg/dL 05/30/23 Range/Units 21:40 WBC (4.8-10.8) X10*3/uL RBC (4.60-5.80) X10*6/uL Hgb (14.0-18.0) g/dl Hct (42.0-52.0) % MCV (80.0-98.0) fL MCH (27.0-33.0) pg MCHC (31.0-36.0) g/dl RDW (11.0-16.0) % Plt Count (160-400) X10*3/uL MPV (9.4-12.4) fL Immature Gran % (Auto) (0.0-0.4) % Neut % (Auto) (45-73) % Lymph % (Auto) (20-40) % [place] % (Auto) (2-11) % Eos % (Auto) (0-4) % Baso % (Auto) (0-2) % Lymph # (Auto) (1.2-4.9) X10*3/uL [place] # (Auto) (0.1-1.2) X10*3/uL Eos # (Auto) (0.0-0.4) X10*3/uL Baso # (Auto) (0.0-0.2) X10*3/uL Abs Immat Gran (auto) (0.00-0.03) X10*3/uL Absolute Neuts (auto) (2.0-8.3) x10*3/uL Absolute Nucleated RBC (0.0-0.012) X10*3/uL Nucleated RBC % (auto) (0.0-0.2) /100WBC PT (11.1-13.3) SEC INR (0.9-1.1) Sodium (135-145) mmol/L Potassium (3.3-5.1) mmol/L Chloride (96-108) mmol/L Carbon Dioxide (22-29) mmol/L Anion Gap (12-20) BUN (9-16) mg/dL Creatinine (0.5-1.4) mg/dL Estim Creat Clear Calc Estimated GFR POC Glucose 98 (60-115) mg/dL Random Glucose (60-115) mg/dL Calcium (8.4-10.2) mg/dL Magnesium (1.6-2.6) mg/dL Total Bilirubin (0.0-1.0) mg/dL AST (5-37) U/L ALT (0-40) U/L Alkaline Phosphatase (39-117) U/L Troponin I High Sens (<3.5-35.0) ng/L Total Protein (6.5-8.0) g/dL Albumin (3.5-5.0) g/dL Urine Opiates Screen (Not Detect) Urine Fentanyl Screen (Not Detect) Ur Barbiturates Screen (Not Detect) Ur Phencyclidine Scrn (Not Detect) Ur Amphetamines Screen (Not Detect) U Benzodiazepines Scrn (Not Detect) Urine Cocaine Screen (Not Detect) U Marijuana (THC) Screen (Not Detect) Ethyl Alcohol mg/dL Independent Interpretation I performed an independent interpretation of an: EKG Interpretation: Normal sinus rhythm heart rate 85 beats per minute normal interval normal axis no acute ST-T changes no acute ischemia Radiology Impression Discussion of test interpretation with radiology: I have reviewed the radiologist's reading. Radiologist Impression: [place] [id number] CT Scan Report Signed Patient: Milind Orellana MR#: [id number] : 1960 Acct:[id number] Age/Sex: 62 / M ADM Date: 05/30/23 Loc: .ED Attending Dr: Ordering Physician: Jhonny Carrera MD Date of Service: 05/30/23 Procedure(s): CT head/brain wo IV con Accession Number(s): [id number] cc: Jhonny Carrera MD~ EXAMINATION: HEAD CT WITHOUT CONTRAST CERVICAL SPINE CT WITHOUT CONTRAST CLINICAL INFORMATION: Fall. COMPARISON: None. TECHNIQUE: Contiguous axial imaging of the head was performed without the administration of IV contrast. Axial multidetector volumetric images were also performed through the cervical spine without intravenous contrast. Multiplanar reconstructed images in coronal and sagittal orientations were submitted. This CT examination was performed using dose optimization techniques as appropriate, variously including the following: *Automated exposure control *Adjustment of mA and/or kV according to patient size (this includes techniques or standardized protocols for targeted exams where dose is matched to indication/reason for exam; i.e. extremities or head) *Use of iterative reconstruction technique. Of note, this examination has yet to be completed in the system at the time of dictation. DOSE: 1087 mGy-cm FINDINGS: HEAD: There is a small focus of subarachnoid hemorrhage within the right posterior frontal cortex which is hyperdense and likely healed. No additional foci of intracranial hemorrhage are identified. There is no evidence of acute territorial infarction. No abnormal mass-effect or midline shift. No extra-axial fluid collections.? Adams to white matter differentiation is well preserved. Mild enlargement of the ventricles, sulci, and extra-axial CSF spaces is indicative of parenchymal volume loss.? A few foci of hypoattenuation in the subcortical and periventricular white matter are most consistent with chronic microangiopathic changes. Persistent cavum septum pellucidum. No acute fractures are identified. There is a small kristy hole within the right parietal calvarium laterally. There is a thin subgaleal fluid collection over the parieto-occipital calvarium. Focal soft tissue hematoma suspected over the right frontotemporal calvarium. Mild soft tissue swelling diffusely. The nasal bone is fractured. Blue orbits are unremarkable. Small amount of mucus within the right frontal and left ethmoid sinuses. Mastoid air cells are clear.? CERVICAL SPINE: Vertebral body heights are normal. No fractures of the vertebral bodies or posterior elements. Mild right convex cervical scoliosis. Vertebral alignment is otherwise normal. No subluxation. Degenerative changes are present at the? craniocervical and atlantoaxial articulations, though normal alignment is maintained. Large, exuberant anterior osteophytes are present in the cervical spine. There is ossification of the nuchal ligament focally. Moderate facet arthropathy is evident in the left at C2-C3, C4-C5, and C5-C6. Central canal appears patent without appreciable stenoses. Facet osteophytes produce neural foraminal encroachment on the left at C2-C3, C4-C5, and C5-C6. No significant paravertebral soft tissue swelling. Cervical soft tissues are unremarkable. Imaged portions of the lung apices are clear. CT/CT head/brain wo IV con IMPRESSION: 1.? A small focus of acute subarachnoid hemorrhage in the right posterior frontal cortex. No additional foci of intracranial hemorrhage. No extra-axial fluid collections. 2.? No acute fracture or malalignment in the cervical spine. 3.? Nasal bone fracture. 4.? Small subgaleal hematoma over the parieto-occipital calvarium and a superficial subcutaneous hematoma over the right lateral frontal calvarium. No underlying calvarial fractures. ? This critical result was discussed by telephone with Dr. Asher on 05/30/2023 10:21 PM. Procedures FAST Exam FAST Exam 1: Fluid in Morison's pouch: No Fluid in Splenorenal Junction: No Fluid around bladder, Transverse view: No Fluid around bladder, Sagittal view: No Fluid in Pericardial Sac: No Gross Wall Motion Abnormality: No Study normal for this patient: Yes Images saved for further review: No Discharge Plan Discharge Clinical Impression: Alcohol abuse, Subarachnoid bleed, Fall Patient Disposition: er [facility] Hospital Transfer Details: [facility] Trauma Dr. Shaw Prescriptions: No Action atorvastatin 10 mg Tablet 10 mg PO DAILY Qty: 30 0RF chlorpromazine 100 mg Tablet 50 mg PO BEDTIME Qty: 30 0RF lisinopril 20 mg Tablet 20 mg PO DAILY Qty: 30 0RF Protocol: Hold for SBP< HOLD for SBP < : 90 fluoxetine 40 mg capsule 40 mg PO DAILY Qty: 30 0RF naltrexone 50 mg Tablet 50 mg PO DAILY Qty: 30 0RF cyanocobalamin (vitamin B-12) [Vitamin B-12] 1,000 mcg Tablet 1,000 mcg PO DAILY Qty: 30 0RF metformin 1,000 mg Tablet 1,000 mg PO BID Qty: 60 0RF omeprazole 20 mg Capsule,Delayed Release(Dr/Ec) 20 mg PO DAILY Qty: 30 0RF
--- NOTE | 2023-05-30 19:23 | ECG_ITS ---
Test Reason : FALL Blood Pressure : / mmHG Vent. Rate : 085 BPM Atrial Rate : 085 BPM P-R Int : 138 ms QRS Dur : 072 ms QT Int : 346 ms P-R-T Axes : 044 -10 007 degrees QTc Int : 411 ms Normal sinus rhythm Normal ECG No previous ECGs available Referred By: Jhonny Carrera Electronically Signed By:Thomas Hall
[2023-05-30 19:42] VITALS: BP 113/65; BP 138/72; PULSE 105; PULSE 83; RESP 13; TEMP 36.7; O2SAT 91; O2SAT 99; BMI 30.3
[2023-05-30 19:43] LABS: MANUAL DIFF FLAG NO
[2023-05-30 19:45] LABS: Basophils Absolute Auto 0.1 X10*3/uL (0.0-0.2); Eosinophils Absolute Auto 0.2 X10*3/uL (0.0-0.4); Eosinophils Percent Auto 2.9 % (0-4); Hematocrit 33.1 % (42.0-52.0); Hemoglobin 10.6 g/dl (14.0-18.0); Imm Gran Abs Auto 0.02 X10*3/uL (0.00-0.03); Imm Gran Pct Auto 0.3 % (0.0-0.4); Lymphocytes Absolute Auto 1.7 X10*3/uL (1.2-4.9); Mean Corpuscular Volume 90.7 fL (80.0-98.0); Mean Platelet Volume 9.2 fL (9.4-12.4); Monocytes Absolute Auto 0.5 X10*3/uL (0.1-1.2); Monocytes Percent Auto 7.7 % (2-11); Neutrophils Absolute Auto 4.4 x10*3/uL (2.0-8.3); Neutrophils Percent Auto 63.1 % (45-73); Platelet Count 249 X10*3/uL (160-400); Red Blood Count 3.65 X10*6/uL (4.60-5.80); Red Cell Distribution Width 15.3 % (11.0-16.0); White Blood Count 6.9 X10*3/uL (4.8-10.8)
[2023-05-30] MEDS: 0.9 % Sodium Chloride 1,000 ML 999 ML IV (19:51)
[2023-05-30 19:57] LABS: Ethanol 261 mg/dL; Prothrombin Time 12.3 SEC (11.1-13.3)
--- NOTE | 2023-05-30 20:00 | PC.NURSE ---
Pt RUBEN harley c-collar for reported witnessed fall in alleyway. PT observed previously drinking alcohol by bystanders reporting LOC, upon arrival pt reporting he doesn't know who he is. Contusion to the back of head with bleeding under control. Abrasion to right eye Pupils dilated, R-eye pupil approximately 4mm non reactive. After approximately 15 minutes patient able to remember name, requesting to go home. Explained to pt he needed imaging done.IV placed #20 L-AC, labs and urine sent, fluids running as ordered.
[2023-05-30 20:05] LABS: Alanine Aminotransferase 31 U/L (0-40); Albumin Level 3.8 g/dL (3.5-5.0); Alkaline Phosphatase 101 U/L (39-117); Anion Gap 18 (12-20); Aspartate Amino Transferase 80 U/L (5-37); Bilirubin Total 0.5 mg/dL (0.0-1.0); Blood Urea Nitrogen 13 mg/dL (9-16); Calcium 8.4 mg/dL (8.4-10.2); Carbon Dioxide 19 mmol/L (22-29); Chloride 110 mmol/L (96-108); Creatinine Clr Calc Pharmacy 72.8; Estimated Glomerular Filt Rate > 60; Glucose Random 99 mg/dL (60-115); Magnesium 1.1 mg/dL (1.6-2.6); Sodium 143 mmol/L (135-145); Total Protein 6.8 g/dL (6.5-8.0)
[2023-05-30 20:07] LABS: Troponin-I High Sensitivity 5.7 ng/L (<3.5-35.0)
[2023-05-30 20:07] LABS: Amphetamine Screen Urine Not Detected (Not Detect); Barbiturates, Urine POSITIVE (Not Detect); Benzodiazepines Screen Urine Not Detected (Not Detect); Cannabinoid Screen Urine POSITIVE (Not Detect); Cocaine Screen Urine Not Detected (Not Detect); Fentanyl, urine Not Detected (Not Detect); Opiate Screen Urine Not Detected (Not Detect); Phencyclidine Screen Urine Not Detected (Not Detect)
[2023-05-30 21:45] LABS: Glucose, Whole Blood 98 mg/dL (60-115)
--- NOTE | 2023-05-30 22:27 | PC.NURSE ---
Pt frequently getting out of bed, redirectable but wanting to leave. This RN explained to pt that we are waiting for ct scan results. Pt able to go back to bed but frquently getting up and ambulating to BR. Pt removed c-collar despite being asked not to take it off.
[2023-05-30] MEDS: Acetaminophen 325 MG TABLET 650 MG PO (22:37)
[2023-05-30] MEDS: Magnesium Sulfate/H2O 2 GM/50 ML PIGGYBACK IV (22:37)
== END 2023-05-31 00:20 | disposition short-term general hospital (02) ==
PROVIDERS: Emergency Provider Internal Medicine
DX: S06.6X0A Traumatic subarachnoid hemorrhage without loss of consciousness, initial encounter (principal); M54.2 Cervicalgia; R51.9 Headache, unspecified; F10.180 Alcohol abuse with alcohol-induced anxiety disorder; Y90.8 Blood alcohol level of 240 mg/100 ml or more; W10.9XXA Fall (on) (from) unspecified stairs and steps, initial encounter; Y93.9 Activity, unspecified; Y92.9 Unspecified place or not applicable; Y99.9 Unspecified external cause status; F17.210 Nicotine dependence, cigarettes, uncomplicated; Z71.6 Tobacco abuse counseling; Z79.899 Other long term (current) drug therapy
CPT/HCPCS: 36415; 70450; 72125; 80053; 80307; 82947; 83735; 84484; 85025; 85610; 93005; 99285; J3475

== ENCOUNTER → 2023-05-30 19:23 | Outpatient (BNV) | payer OTHER, SELFPAY | PROVIDERS: Emergency Provider Internal Medicine; Visit Provider Internal Medicine Cardiovascular Disease | DX: R55 Syncope and collapse (principal) | CPT/HCPCS: 93010 ==

== ENCOUNTER 2023-06-04 15:53 | Outpatient (REF) | payer OTHER, SELFPAY | END 2023-06-04 15:54 | disposition home or self-care (01) | LOC: HO.HHCL 15:53 | PROVIDERS: Visit Provider Family Medicine | DX: Z13.89 Encounter for screening for other disorder (principal) ==

== ENCOUNTER 2023-06-07 12:38 | Outpatient (REF) | payer OTHER, SELFPAY ==
[2023-06-08 04:30] LABS: Syphilis Screen Nonreactive (Nonreactive)
[2023-06-08 04:52] LABS: HBS Num1 88.64 mIU/mL (0-7.99); HBc Num1 0.07 S/CO (0.00-0.79); HBsAGNum1 0.42 S/CO (0.00-0.99); HIV AB/AG Nonreactive (Nonreactive); HIV Num 1 0.06 S/CO (0.00-0.99); Hepatitis A Antibody IgG REACTIVE (Nonreactive); Hepatitis B Core Antibody Nonreactive (Nonreactive); Hepatitis B Surface Antigen Negative (Negative); ~HepC Num1 0.04 S/CO (0.00-0.79); ~Hepatitis A Antibody IgG 11.56 S/CO (0.00-0.99); ~Hepatitis B Surface Antibody REACTIVE (Nonreactive); ~Hepatitis C Antibody Nonreactive (Nonreactive)
[2023-06-10 22:54] LABS: TS Negative Control Passed; TS Panel A 2; TS Panel B 0; TS Positive Control Passed; TSpotTB Negative (Negative)
== END 2023-06-07 12:39 | disposition home or self-care (01) ==
LOC: HO.HHCL 12:38
PROVIDERS: Visit Provider Family Medicine
DX: Z11.4 Encounter for screening for human immunodeficiency virus [HIV] (principal); Z11.1 Encounter for screening for respiratory tuberculosis; F10.20 Alcohol dependence, uncomplicated
CPT/HCPCS: 36415; 86481; 86704; 86706; 86708; 86780; 86803; 87340; 87389

== ENCOUNTER 2023-06-18 00:58 | Emergency (ER) | payer OTHER, SELFPAY ==
--- NOTE | ~2023-06-18 | CT_ITS ---
EXAMINATION: CT HEAD WITHOUT CONTRAST CLINICAL INFORMATION: Fall, EtOH intoxication COMPARISON: 05/21/2023 TECHNIQUE: Contiguous axial imaging was performed from the skull base to vertex without intravenous administration of contrast. This CT examination was performed using dose optimization techniques as appropriate, variously including the following: *Automated exposure control *Adjustment of mA and/or kV according to patient size (this includes techniques or standardized protocols for targeted exams where dose is matched to indication/reason for exam; i.e. extremities or head) *Use of iterative reconstruction technique DLP: 703 mGy-cm FINDINGS: There is hyperdense thickening along the anterior falx which is new from prior, most consistent with acute subdural hematoma measuring up to 4 mm in thickness. There is no evidence of acute territorial infarction. No abnormal mass-effect or midline shift is seen. Adams to white matter differentiation is well preserved. The ventricles are normal in size. There is mild periventricular white matter hypoattenuation consistent with chronic small vessel ischemic disease. Mild volume loss is noted. No acute fracture is seen. There is chronic appearing nasal bone deformity. Partially opacified right frontal sinus. The mastoid air cells are well-aerated. CT/CT head/brain wo IV con IMPRESSION: Acute subdural hematoma along the anterior falx measuring up to 4 mm in thickness. No significant mass effect. This critical result was discussed with Dr. Jarquin on 06/18/2023 4:07 AM, and it was ascertained that the content and urgency of the report was understood at the time of direct communication.
--- NOTE | 2023-06-18 01:13 | ED_ITS ---
HPI - Alcohol General Chief Complaint: ETOH/Substance Use Stated Complaint: etoh Time Seen by Provider: 06/18/23 01:11 Source: patient and EMS Mode of arrival: EMS History of Present Illness HPI narrative: 62-year-old male brought in by EMS for alcohol intoxication, has a recent diagnosis of subarachnoid bleed 05/30. Pupils are asymmetrical, patient is speaking in standing but is laying, poor historian, patient is at his baseline when he has been seen here previously for his alcohol intoxication. Related Data Previous Rx's Medication Instructions Recorded atorvastatin 10 mg tablet 10 mg PO DAILY #30 tabs 02/09/23 chlorpromazine 100 mg tablet 50 mg PO BEDTIME #30 tabs 02/09/23 cyanocobalamin (vitamin B-12) 1,000 mcg PO DAILY #30 tabs 02/09/23 1,000 mcg tablet (Vitamin B-12) fluoxetine 40 mg capsule 40 mg PO DAILY #30 caps 02/09/23 lisinopril 20 mg tablet 20 mg PO DAILY #30 tabs 02/09/23 metformin 1,000 mg tablet 1,000 mg PO BID #60 tabs 02/09/23 naltrexone 50 mg tablet 50 mg PO DAILY #30 tabs 02/09/23 omeprazole 20 mg capsule,delayed 20 mg PO DAILY #30 caps 02/09/23 release Allergies Allergy/AdvReac Type Severity Reaction Status Date / Time sertraline [From ZOLOFT] Allergy Mild HEADACHES Verified 05/17/23 20:25 Review of Systems Review of Systems: Yes Unobtainable due to mental condition [facility] Past Medical History Source: nursing notes reviewed Medical History Alcohol abuse Social History Social History Household Members: Other Household Members Other:: Currently homeless Housing: Other Housing Other:: none Do you presently have visiting nurse or other home services: No Alcohol intake: current Alcohol intake frequency: 3 or more drinks per day Patient Tobacco Use Status: Current everyday Tobacco user Tobacco use type: Cigarette Cigarette Packs Per Day: 1 Cigarettes Per Day: 20.0 Years Smoked: 47 e-Cigarette/Vaping Use: Former Use Second Hand Smoke Exposure: No (homeless) Substance Use Type: Crack/Cocaine Advance Directives: No Advance Directives Information Provided: Yes service: No Sexual orientation: Straight/Heterosexual Physical Exam ED Vital Signs: Vital Signs - 24 hr 06/18/23 01:37 Temperature 97.5 F Pulse Rate 89 Respiratory Rate 18 Blood Pressure 135/83 Pulse Oximetry 97 Oxygen Delivery Method Room Air BMI result Body Mass Index 28.1 VITAL SIGNS: Reviewed. GENERAL: Well developed, well nourished, in no acute distress. HEAD: Normocephalic/atraumatic EYES: OD-6mm, OS-4mm, EOMI EARS: Ext canals without abnormality NOSE: Nares patent bilateral OROPHARYNX: no oral lesions noted, posterior pharynx clear NECK: Supple, no adenopathy LUNGS: Normal breath sounds. No adventitious sounds or accessory muscle use. CARDIOVASCULAR: Regular rate and rhythm without noted murmurs ABDOMEN: Soft, non-tender, non-distended with bowel sounds. MUSCULOSKELETAL: No tenderness, deformities, or effusions noted on gross inspection. EXTREMITIES: No cyanosis, clubbing or edema. SKIN: Inspection of the skin reveals no rashes NEUROLOGIC: Alert and oriented x 2. Strength and sensation to light touch were grossly intact x 4. Medical Decision Making Medical Decision Making MDM Narrative: 62-year-old male is clearly intoxicated, unclear asymmetrical pupils, at this time will evaluate for alcohol level, provide Ativan as patient is very agitated in wishes to leave. Once he is more calm we will scan his head as it is difficult to appropriately assess his neurological status given the degree of alcohol intoxication. Patient received oral Ativan with good results and able to get a CT of the head, noncontrast. 0406: I received a call from [facility] who informs me that there is a Acute subdural hematoma along the anterior falx measuring up to 4 mm in thickness. No significant mass effect. . Will obtain lab work and contact [facility]. 0449: Challenging to obtain lab work and any further information. I did discuss the case with [facility] and I have transferred CT head images to [facility] ED/trauma. 0520: I discussed case further with Dr. Anderson, as a trauma consult, she accepts patient has a Trauma consult ED to ED. We will arrange for transportation. I reviewed all investigations and hematologic indices are negative for evidence of infection without leukocytosis or left shift and anemia peers to be chronically stable. Coagulation studies are within normal limits, chemistry and sees without significant electrolyte or liver enzyme derangements, there is no MAGGIE. BAL-242 and COVID is negative. Differential Diagnosis Differential Diagnoses: The differential diagnosis associated with the presentation includes Please see the discussion above Admission/Observation Consideration of admission/observation: Escalation of care including admission/observation considered please see the discussion above Consult Healthcare Provider Management of the patient was discussed with: Elevator Service Mechanic please see the discussion above Lab Data MDM Lab Attestation statement: I reviewed the patient's lab results. please see the discussion above 06/18/23 04:40 06/18/23 04:40 Labs: Lab Results 06/18/23 06/18/23 06/18/23 Range/Units 04:40 04:40 04:40 WBC 8.6 (4.8-10.8) X10*3/uL RBC 4.09 L (4.60-5.80) X10*6/uL Hgb 11.8 L (14.0-18.0) g/dl Hct 36.6 L (42.0-52.0) % MCV 89.5 (80.0-98.0) fL MCH 28.9 (27.0-33.0) pg MCHC 32.2 (31.0-36.0) g/dl RDW 13.6 (11.0-16.0) % Plt Count 306 (160-400) X10*3/uL MPV 9.6 (9.4-12.4) fL Immature Gran % (Auto) 0.2 (0.0-0.4) % Neut % (Auto) 52.1 (45-73) % Lymph % (Auto) 39.8 (20-40) % [place] % (Auto) 5.6 (2-11) % Eos % (Auto) 1.6 (0-4) % Baso % (Auto) 0.7 (0-2) % Lymph # (Auto) 3.4 (1.2-4.9) X10*3/uL [place] # (Auto) 0.5 (0.1-1.2) X10*3/uL Eos # (Auto) 0.1 (0.0-0.4) X10*3/uL Baso # (Auto) 0.1 (0.0-0.2) X10*3/uL Abs Immat Gran (auto) 0.02 (0.00-0.03) X10*3/uL Absolute Neuts (auto) 4.5 (2.0-8.3) x10*3/uL Absolute Nucleated RBC 0.000 (0.0-0.012) X10*3/uL Nucleated RBC % (auto) 0.0 (0.0-0.2) /100WBC PT 12.4 (11.1-13.3) SEC INR 1.0 (0.9-1.1) Sodium (135-145) mmol/L Potassium (3.3-5.1) mmol/L Chloride (96-108) mmol/L Carbon Dioxide (22-29) mmol/L Anion Gap (12-20) BUN (9-16) mg/dL Creatinine (0.5-1.4) mg/dL Estim Creat Clear Calc Estimated GFR Random Glucose (60-115) mg/dL Calcium (8.4-10.2) mg/dL Total Bilirubin (0.0-1.0) mg/dL AST (5-37) U/L ALT (0-40) U/L Alkaline Phosphatase (39-117) U/L Total Protein (6.5-8.0) g/dL Albumin (3.5-5.0) g/dL Ethyl Alcohol 242 mg/dL COVID-19 (LOGAN) (Negative) COVID-19 Clin Com 06/18/23 06/18/23 Range/Units 04:40 04:40 WBC (4.8-10.8) X10*3/uL RBC (4.60-5.80) X10*6/uL Hgb (14.0-18.0) g/dl Hct (42.0-52.0) % MCV (80.0-98.0) fL MCH (27.0-33.0) pg MCHC (31.0-36.0) g/dl RDW (11.0-16.0) % Plt Count (160-400) X10*3/uL MPV (9.4-12.4) fL Immature Gran % (Auto) (0.0-0.4) % Neut % (Auto) (45-73) % Lymph % (Auto) (20-40) % [place] % (Auto) (2-11) % Eos % (Auto) (0-4) % Baso % (Auto) (0-2) % Lymph # (Auto) (1.2-4.9) X10*3/uL [place] # (Auto) (0.1-1.2) X10*3/uL Eos # (Auto) (0.0-0.4) X10*3/uL Baso # (Auto) (0.0-0.2) X10*3/uL Abs Immat Gran (auto) (0.00-0.03) X10*3/uL Absolute Neuts (auto) (2.0-8.3) x10*3/uL Absolute Nucleated RBC (0.0-0.012) X10*3/uL Nucleated RBC % (auto) (0.0-0.2) /100WBC PT (11.1-13.3) SEC INR (0.9-1.1) Sodium 144 (135-145) mmol/L Potassium 4.0 (3.3-5.1) mmol/L Chloride 109 H (96-108) mmol/L Carbon Dioxide 22 (22-29) mmol/L Anion Gap 17 (12-20) BUN 14 (9-16) mg/dL Creatinine 0.95 (0.5-1.4) mg/dL Estim Creat Clear Calc 87.6 Estimated GFR > 60 Random Glucose 157 H (60-115) mg/dL Calcium 9.1 D (8.4-10.2) mg/dL Total Bilirubin 0.1 (0.0-1.0) mg/dL AST 20 (5-37) U/L ALT 10 (0-40) U/L Alkaline Phosphatase 70 (39-117) U/L Total Protein 6.9 (6.5-8.0) g/dL Albumin 4.1 (3.5-5.0) g/dL Ethyl Alcohol mg/dL COVID-19 (LOGAN) Negative (Negative) COVID-19 Clin Com See Note Radiology Impression Radiologist Impression: subdural bleed and otherwise my interpretation is in agreement with radiology's impression. External Record Review External record reviewed: Inpatient record, Outpatient record and Prior outpatient labs Chronic Conditions Patient?s care impacted by: Diabetes Medications Administered Discontinued Medications Generic Name Dose Route Start Last Admin Trade Name Freq PRN Reason Stop Dose Admin Diphenhydramine HCl 50 mg 06/18/23 01:43 06/18/23 04:47 Diphenhydramine Hcl 25 Mg Capsule PO 06/18/23 01:44 50 mg ONCE ONE Administration Lorazepam 2 mg 06/18/23 01:16 06/18/23 01:34 Lorazepam 1 Mg Tablet PO 06/18/23 01:17 2 mg ONCE ONE Administration Discharge Plan Discharge Clinical Impression: Trauma, Alcohol intoxication, Subdural hematoma Patient Disposition: [facility] Transfer Details: traumatic fall, subdural hematoma Prescriptions: No Action atorvastatin 10 mg Tablet 10 mg PO DAILY Qty: 30 0RF chlorpromazine 100 mg Tablet 50 mg PO BEDTIME Qty: 30 0RF lisinopril 20 mg Tablet 20 mg PO DAILY Qty: 30 0RF Protocol: Hold for SBP< HOLD for SBP < : 90 fluoxetine 40 mg capsule 40 mg PO DAILY Qty: 30 0RF naltrexone 50 mg Tablet 50 mg PO DAILY Qty: 30 0RF cyanocobalamin (vitamin B-12) [Vitamin B-12] 1,000 mcg Tablet 1,000 mcg PO DAILY Qty: 30 0RF metformin 1,000 mg Tablet 1,000 mg PO BID Qty: 60 0RF omeprazole 20 mg Capsule,Delayed Release(Dr/Ec) 20 mg PO DAILY Qty: 30 0RF
[2023-06-18] MEDS: LORazepam 1 MG TABLET 2 MG PO (01:34)
[2023-06-18 01:37] VITALS: BP 135/83; BP 144/88; PULSE 82; PULSE 89; RESP 18; TEMP 36.4; O2SAT 97; O2SAT 98; BMI 28.1
[2023-06-18 04:45] LABS: Basophils Absolute Auto 0.1 X10*3/uL (0.0-0.2); Basophils Percent Auto 0.7 % (0-2); Eosinophils Absolute Auto 0.1 X10*3/uL (0.0-0.4); Eosinophils Percent Auto 1.6 % (0-4); Hematocrit 36.6 % (42.0-52.0); Hemoglobin 11.8 g/dl (14.0-18.0); Imm Gran Abs Auto 0.02 X10*3/uL (0.00-0.03); Imm Gran Pct Auto 0.2 % (0.0-0.4); Lymphocytes Absolute Auto 3.4 X10*3/uL (1.2-4.9); Lymphocytes Percent Auto 39.8 % (20-40); MANUAL DIFF FLAG NO; Mean Corpuscular HGB Conc 32.2 g/dl (31.0-36.0); Mean Corpuscular Hemoglobin 28.9 pg (27.0-33.0); Mean Corpuscular Volume 89.5 fL (80.0-98.0); Mean Platelet Volume 9.6 fL (9.4-12.4); Monocytes Absolute Auto 0.5 X10*3/uL (0.1-1.2); Monocytes Percent Auto 5.6 % (2-11); Neutrophils Absolute Auto 4.5 x10*3/uL (2.0-8.3); Neutrophils Percent Auto 52.1 % (45-73); Platelet Count 306 X10*3/uL (160-400); Red Blood Count 4.09 X10*6/uL (4.60-5.80); Red Cell Distribution Width 13.6 % (11.0-16.0); White Blood Count 8.6 X10*3/uL (4.8-10.8)
[2023-06-18] MEDS: diphenhydrAMINE HCL 25 MG CAPSULE 50 MG PO (04:47)
--- NOTE | 2023-06-18 04:49 | PC.NURSE ---
This RN accepted patient upon arrival and assumed care. Patient found down in the street, unclear if patient had fallen per EMS. Patient initially uncooperative and required security present as well as admissions officer. Patient's pupils noted to be 2 different sizes, MD Jarquin called to bedside to assess. Patient able to take medication as charted in DEC. CT scan done and patient noted to have bleed, IVs placed and patient to be transferred to [facility]. Patient currently resting in bed, MD at bedside. Will continue to monitor until patient transfer.
[2023-06-18 04:52] LABS: Prothrombin Time 12.4 SEC (11.1-13.3)
[2023-06-18 04:56] LABS: COVID-19 Test Negative (Negative); IDNOW Serial# 6674DD1D
[2023-06-18 04:57] LABS: Ethanol 242 mg/dL
[2023-06-18 05:00] LABS: Alanine Aminotransferase 10 U/L (0-40); Albumin Level 4.1 g/dL (3.5-5.0); Alkaline Phosphatase 70 U/L (39-117); Anion Gap 17 (12-20); Aspartate Amino Transferase 20 U/L (5-37); Bilirubin Total 0.1 mg/dL (0.0-1.0); Blood Urea Nitrogen 14 mg/dL (9-16); Calcium 9.1 mg/dL (8.4-10.2); Carbon Dioxide 22 mmol/L (22-29); Chloride 109 mmol/L (96-108); Creatinine Clr Calc Pharmacy 87.6; Estimated Glomerular Filt Rate > 60; Glucose Random 157 mg/dL (60-115); Sodium 144 mmol/L (135-145); Total Protein 6.9 g/dL (6.5-8.0)
--- NOTE | 2023-06-18 05:04 | MHC.EDTECH ---
Call out to [facility] transfer line @[phone]
[2023-06-18 05:24] VITALS: BP 122/77; PULSE 89; TEMP 36.6; O2SAT 96
[2023-06-18] MEDS: LORazepam 2 MG/ML VIAL 1 MG IVPUSH (05:55)
[2023-06-18] MEDS: diphenhydrAMINE HCL 50 MG/ML VIAL 25 MG IVPUSH (05:55)
--- NOTE | 2023-06-18 06:52 | PC.NURSE ---
Patient continued to get out of bed repeatedly despite multiple attempts for MD intervention. Patient received IV Ativan and Benadryl as documented in chart. Patient continued to try and throw shoes at this RN and tech, patient eventually put onto stretcher with security presence and was transferred to [facility]
== END 2023-06-18 07:23 | disposition short-term general hospital (02) ==
PROVIDERS: Emergency Provider Student in an Organized Health Care Education/Training Program
DX: F10.129 Alcohol abuse with intoxication, unspecified (principal); R51.9 Headache, unspecified; F17.210 Nicotine dependence, cigarettes, uncomplicated; Y90.8 Blood alcohol level of 240 mg/100 ml or more; Z20.822 Contact with and (suspected) exposure to COVID-19; Z20.828 Contact with and (suspected) exposure to other viral communicable diseases; Z71.6 Tobacco abuse counseling; Z79.899 Other long term (current) drug therapy
CPT/HCPCS: 36415; 70450; 80053; 80307; 85025; 85610; 87635; 96374; 96375; 99284; 99285; J1200; J2060

== ENCOUNTER 2023-07-22 10:28 | Outpatient (REF) | payer OTHER, SELFPAY ==
[2023-07-22 11:06] LABS: MANUAL DIFF FLAG NO
[2023-07-22 11:28] LABS: Basophils Absolute Auto 0.1 X10*3/uL (0.0-0.2); Basophils Percent Auto 0.7 % (0-2); Eosinophils Absolute Auto 0.2 X10*3/uL (0.0-0.4); Eosinophils Percent Auto 3.1 % (0-4); Hematocrit 37.9 % (42.0-52.0); Hemoglobin 12.3 g/dl (14.0-18.0); Imm Gran Abs Auto 0.02 X10*3/uL (0.00-0.03); Imm Gran Pct Auto 0.3 % (0.0-0.4); Lymphocytes Absolute Auto 1.8 X10*3/uL (1.2-4.9); Lymphocytes Percent Auto 25.8 % (20-40); Mean Corpuscular HGB Conc 32.5 g/dl (31.0-36.0); Mean Corpuscular Hemoglobin 28.3 pg (27.0-33.0); Mean Corpuscular Volume 87.3 fL (80.0-98.0); Mean Platelet Volume 9.7 fL (9.4-12.4); Monocytes Absolute Auto 0.5 X10*3/uL (0.1-1.2); Monocytes Percent Auto 6.6 % (2-11); Neutrophils Absolute Auto 4.3 x10*3/uL (2.0-8.3); Neutrophils Percent Auto 63.5 % (45-73); Platelet Count 260 X10*3/uL (160-400); Red Blood Count 4.34 X10*6/uL (4.60-5.80); Red Cell Distribution Width 13.2 % (11.0-16.0); White Blood Count 6.8 X10*3/uL (4.8-10.8)
[2023-07-22 12:16] LABS: Alanine Aminotransferase 18 U/L (0-40); Albumin Level 4.3 g/dL (3.5-5.0); Alkaline Phosphatase 63 U/L (39-117); Anion Gap 14 (12-20); Aspartate Amino Transferase 20 U/L (5-37); Bilirubin Total 0.2 mg/dL (0.0-1.0); Blood Urea Nitrogen 15 mg/dL (9-16); Calcium 9.3 mg/dL (8.4-10.2); Carbon Dioxide 27 mmol/L (22-29); Chloride 104 mmol/L (96-108); Estimated Glomerular Filt Rate > 60; Glucose Random 111 mg/dL (60-115); Potassium 4.5 mmol/L (3.3-5.1); Sodium 140 mmol/L (135-145); Total Protein 7.2 g/dL (6.5-8.0)
== END 2023-07-22 10:29 | disposition home or self-care (01) ==
LOC: HO.HHCL 10:28
PROVIDERS: Visit Provider Internal Medicine Geriatric Medicine
DX: E11.9 Type 2 diabetes mellitus without complications (principal); F25.0 Schizoaffective disorder, bipolar type; F10.11 Alcohol abuse, in remission
CPT/HCPCS: 36415; 80053; 85025

== ENCOUNTER 2023-10-08 13:15 | Outpatient (REF) | payer OTHER, SELFPAY ==
[2023-10-08 16:25] LABS: MANUAL DIFF FLAG NO
[2023-10-08 16:31] LABS: Basophils Absolute Auto 0.1 X10*3/uL (0.0-0.2); Basophils Percent Auto 0.6 % (0-2); Eosinophils Absolute Auto 0.1 X10*3/uL (0.0-0.4); Eosinophils Percent Auto 1.4 % (0-4); Hematocrit 39.1 % (42.0-52.0); Hemoglobin 12.6 g/dl (14.0-18.0); Imm Gran Abs Auto 0.04 X10*3/uL (0.00-0.03); Imm Gran Pct Auto 0.4 % (0.0-0.4); Lymphocytes Absolute Auto 1.8 X10*3/uL (1.2-4.9); Lymphocytes Percent Auto 18.2 % (20-40); Mean Corpuscular HGB Conc 32.2 g/dl (31.0-36.0); Mean Corpuscular Hemoglobin 28.2 pg (27.0-33.0); Mean Corpuscular Volume 87.5 fL (80.0-98.0); Mean Platelet Volume 10.7 fL (9.4-12.4); Monocytes Absolute Auto 0.6 X10*3/uL (0.1-1.2); Monocytes Percent Auto 5.7 % (2-11); Neutrophils Absolute Auto 7.1 x10*3/uL (2.0-8.3); Neutrophils Percent Auto 73.7 % (45-73); Platelet Count 281 X10*3/uL (160-400); Red Blood Count 4.47 X10*6/uL (4.60-5.80); Red Cell Distribution Width 14.1 % (11.0-16.0); White Blood Count 9.7 X10*3/uL (4.8-10.8)
== END 2023-10-08 13:16 | disposition home or self-care (01) ==
LOC: HO.HHCL 13:15
PROVIDERS: Visit Provider Counselor Addiction (Substance Use Disorder)
DX: F33.3 Major depressive disorder, recurrent, severe with psychotic symptoms (principal); F10.20 Alcohol dependence, uncomplicated; Z79.899 Other long term (current) drug therapy
CPT/HCPCS: 36415; 85025

== ENCOUNTER 2023-11-25 22:50 | Inpatient (IN) | payer OTHER, SELFPAY ==
--- NOTE | ~2023-11-25 | CT_ITS ---
Examination: CT brain and CT cervical spine without contrast. Clinical indications: Unwitnessed fall. On a background. COMPARISON: CT brain 06/18/2023. TECHNIQUE: 5 mm thin axial and reformatted 2 mm thin sagittal and coronal images of brain were obtained. Subsequently axial 3 mm thin and reformatted 2 mm thin sagittal and coronal images of cervical spine were obtained. DLP [id number]. This CT examination was performed using dose optimization technique as appropriate, variously including the following: Automated exposure control Adjustment of MA and/or KV according to patient size(this includes techniques or standardized protocols for targeted exams where dose is matched to indication/reason for exam; extremities or head. Use of iterative reconstruction techniques. FINDINGS: Brain: There is no acute intra-axial, extra-axial bleed, masses or midline shift. There is no acute infarction evolution. There is no edema. The pinzon to white matter differentiation is maintained normal. The lateral ventricles are symmetrical in size and configuration but mildly enlarged. No abnormality seen in the posterior fossa. Bone windows reveal no calvarial abnormality. No scalp soft tissue normality seen either. There is mild mucoperiosteal thickening right frontal sinus. Rest the paranasal sinuses and mastoid air cells are well-aerated. Cervical spine: On sagittal reconstructed images there is maintained cervical lordosis. The vertebral heights, alignment and disc heights are normal. There is a large bridging osteophytes from C2-C3, C3-C4, C4-C5, C5-C6 and C6 S1 disc levels. The craniovertebral junction and the C1-C2 alignment is normal. There is no visible acute fracture, dislocation or subluxation seen. The prevertebral and paravertebral soft tissues are normal. The airways widely patent. The lung apices are clear. CT/CT cervical spine wo IV con IMPRESSION: 1. No acute intracranial process seen. 2. There is no acute fracture, dislocation or subluxation seen in cervical spine. There are large bridging osteophytes from C2-C3 through C6-C7 disc levels disc levels.
--- NOTE | 2023-11-25 22:53 | ED_ITS ---
HPI - Alcohol General Chief Complaint: ETOH/Substance Use Stated Complaint: ETOH Time Seen by Provider: 11/25/23 22:51 Source: patient and EMS Mode of arrival: EMS Limitations: other (Acute alcohol intoxication) History of Present Illness HPI narrative: Patient is a 63-year-old male who presents to the emergency department via EMS. Patient was found lying on the sidewalk by PD. Reportedly was outside of his nephew's house. He does endorse to drinking many beers today and smoking weed. At one point he reported to EMS that he had fallen to the ground. He reports to me that he is unaware whether he had fallen. When asked he reports pain to head, chest, and whole body . Patient was able to get up from EMS stretcher and ambulate independently over to ED stretcher, he is moving all extremities independently. He appears acutely intoxicated. Related Data Previous Rx's Medication Instructions Recorded atorvastatin 10 mg tablet 10 mg PO DAILY #30 tabs 02/09/23 chlorpromazine 100 mg tablet 50 mg (1/2 x 100 mg) PO BEDTIME 02/09/23 #30 tabs cyanocobalamin (vitamin B-12) 1,000 mcg PO DAILY #30 tabs 02/09/23 1,000 mcg tablet (Vitamin B-12) fluoxetine 40 mg capsule 40 mg PO DAILY #30 caps 02/09/23 lisinopril 20 mg tablet 20 mg PO DAILY #30 tabs 02/09/23 metformin 1,000 mg tablet 1,000 mg PO BID #60 tabs 02/09/23 naltrexone 50 mg tablet 50 mg PO DAILY #30 tabs 02/09/23 omeprazole 20 mg capsule,delayed 20 mg PO DAILY #30 caps 02/09/23 release Allergies Allergy/AdvReac Type Severity Reaction Status Date / Time sertraline [From ZOLOFT] Allergy Mild HEADACHES Verified 05/17/23 20:25 Review of Systems 2 Review of Systems: Yes all other systems are reviewed and are negative PMFSH Past Medical History Attestation statement: The following information was validated with the patient. Source: old records reviewed Medical History Alcohol abuse Social History Social History Household Members: Other Household Members Other:: Currently homeless Housing: Other Housing Other:: none Do you presently have visiting nurse or other home services: No Alcohol intake: current Alcohol intake frequency: 3 or more drinks per day Patient Tobacco Use Status: Current everyday Tobacco user Tobacco use type: Cigarette Cigarette Packs Per Day: 1 Cigarettes Per Day: 20.0 Years Smoked: 47 Smoked in Last 30 Days: No e-Cigarette/Vaping Use: Former Use Second Hand Smoke Exposure: No (homeless) Substance Use Type: Marijuana Substance Use Frequency: Daily Advance Directives: No Advance Directives Information Provided: No service: No Sexual orientation: Straight/Heterosexual Physical Exam ED Vital Signs: Vital Signs - 24 hr 11/25/23 23:10 11/26/23 00:00 11/26/23 02:00 Temperature 98.6 F 98.6 F Pulse Rate 104 H 92 94 Respiratory Rate 14 16 17 Blood Pressure 110/70 107/65 Pulse Oximetry 97 95 98 Oxygen Delivery Method Room Air Room Air Room Air BMI result Body Mass Index 29.6 Appearance: Alert.?Oriented to person. Acute alcohol intoxication Head: Normocephalic Eyes: Pupils equal, round and reactive to light. EOMI. Conjunctiva and sclera normal? No Christine sign noted. No raccoon eyes noted ENT: No septal hematoma, nares patent bilaterally. External auditory canal normal tympanic membrane pearly pinzon and intact bilaterally. Dentition normal, no fractured teeth. No lesions or lacerations of oropharynx. Uvula midline. Moist mucous membranes. Neck: Normal inspection.? Neck supple.??No palpable tenderness, step-off, deformities. CVS: Heart sounds normal. Normal heart rate and rhythm.? Pulses normal.?? Respiratory: No respiratory distress.? Lung sounds clear to auscultation bilaterally?? Abdomen: Soft and non-tender. Normoactive bowel sounds. ?? Skin: Skin warm and dry.? Normal skin color.? Normal skin turgor.?? Extremities: No lower extremity edema.? Moving all extremities independently Neuro: Moves all extremities spontaneously. Sensation intact bilaterally. CN II- XII intact. No focal neuro deficits. Course Reevaluation(s) Reevaluation #1: Advised by nursing staff that patient was attempting to leave the emergency department requiring security assistance for direction. CT of the head is without acute intracranial process, no evidence of fracture subluxation. CBC revealing leukocytosis left shift, normocytic anemia that does not meet transfusion criteria. MAGGIE, patient to recieve 2L IVF and will repeat labs Time: 00:56 Reevaluation #2: Signed out to ED attending Dr. Hill pending repeat BMP and re-evaluation Time: 01:49 Reevaluation #3: 63-year-old male with alcohol intoxication problem presented with severe intoxication found to be in MAGGIE received 2 L of normal saline in the ED and repeat labs is unchanged, patient in the ED admitted that he is suicidal without specific plan but agreed to be admitted to the hospital. Will admit, start on phenobarb, one-to-one sitter. Time: 04:38 Medical Decision Making Medical Decision Making MDM Narrative: Patient is a 63-year-old male who presents to emergency department via EMS after being found on the ground, he is clearly intoxicated, however he is conversive and seemingly answering questions appropriately. Plan to obtain labs including alcohol level, given report a fall will obtain CT head and cervical spine to exclude ICH, SDH, fracture, subluxation, he does have a history of subarachnoid hemorrhage and subdural hematoma. Differential Diagnosis Differential Diagnoses: The differential diagnosis associated with the presentation includes (See narrative above) Admission/Observation Consideration of admission/observation: Escalation of care including admission/observation considered (See narrative above and course narrative for further detail) Lab Data MDM Lab Attestation statement: I reviewed the patient's lab results. (See course narrative for further detail) 11/25/23 23:49 11/26/23 02:55 Labs: Lab Results 11/25/23 11/26/23 11/26/23 Range/Units 23:49 01:40 02:55 WBC 14.4 H (4.8-10.8) X10*3/uL RBC 4.21 L (4.60-5.80) X10*6/uL Hgb 12.0 L (14.0-18.0) g/dl Hct 36.8 L (42.0-52.0) % MCV 87.4 (80.0-98.0) fL MCH 28.5 (27.0-33.0) pg MCHC 32.6 (31.0-36.0) g/dl RDW 15.4 (11.0-16.0) % Plt Count 328 (160-400) X10*3/uL MPV 9.2 L (9.4-12.4) fL Immature Gran % (Auto) 0.3 (0.0-0.4) % Neut % (Auto) 78.0 H (45-73) % Lymph % (Auto) 15.9 L (20-40) % [place] % (Auto) 4.8 (2-11) % Eos % (Auto) 0.3 (0-4) % Baso % (Auto) 0.7 (0-2) % Lymph # (Auto) 2.3 (1.2-4.9) X10*3/uL [place] # (Auto) 0.7 (0.1-1.2) X10*3/uL Eos # (Auto) 0.0 (0.0-0.4) X10*3/uL Baso # (Auto) 0.1 (0.0-0.2) X10*3/uL Abs Immat Gran (auto) 0.05 H (0.00-0.03) X10*3/uL Absolute Neuts (auto) 11.3 H (2.0-8.3) x10*3/uL Absolute Nucleated RBC 0.000 (0.0-0.012) X10*3/uL Nucleated RBC % (auto) 0.0 (0.0-0.2) /100WBC PT 12.0 (11.1-13.3) SEC INR 1.0 (0.9-1.1) Sodium 141 140 (135-145) mmol/L Potassium 4.3 4.5 (3.3-5.1) mmol/L Chloride 102 108 (96-108) mmol/L Carbon Dioxide 22 19 L (22-29) mmol/L Anion Gap 21 H 18 (12-20) BUN 31 H 27 H (9-16) mg/dL Creatinine 2.86 H 2.17 H (0.5-1.4) mg/dL Estim Creat Clear Calc 26.7 35.2 Estimated GFR 22 31 Random Glucose 119 H 136 H (60-115) mg/dL Calcium 8.8 8.1 L D (8.4-10.2) mg/dL Total Bilirubin 0.2 (0.0-1.0) mg/dL AST 79 H (5-37) U/L ALT 40 (0-40) U/L Alkaline Phosphatase 92 (39-117) U/L Troponin I High Sens 10.5 D (<3.5-35.0) ng/L Total Protein 7.3 (6.5-8.0) g/dL Albumin 4.3 (3.5-5.0) g/dL Urine Opiates Screen Not Detected (Not Detect) Urine Fentanyl Screen Not Detected (Not Detect) Ur Barbiturates Screen Not Detected (Not Detect) Ur Phencyclidine Scrn Not Detected (Not Detect) Ur Amphetamines Screen Not Detected (Not Detect) U Benzodiazepines Scrn Not Detected (Not Detect) Urine Cocaine Screen Not Detected (Not Detect) U Marijuana (THC) Screen POSITIVE H (Not Detect) Ethyl Alcohol 165 mg/dL Independent Interpretation I performed an independent interpretation of an: CT Scan Radiology Impression Discussion of test interpretation with radiology: I have reviewed the radiologist's reading. Radiologist Impression: CT/CT cervical spine wo IV con IMPRESSION: 1. No acute intracranial process seen. 2. There is no acute fracture, dislocation or subluxation seen in cervical spine. There are large bridging osteophytes from C2-C3 through C6-C7 disc levels disc levels. Independent Historian Clinical information obtained from an independent historian. History obtained from or confirmed by: EMS External Record Review External record reviewed: Outpatient record Medications Administered Discontinued Medications Generic Name Dose Route Start Last Admin Trade Name Freq PRN Reason Stop Dose Admin Sodium Chloride 1,000 mls @ 999 mls/hr 11/26/23 01:00 11/26/23 02:31 Ns IV 11/26/23 03:00 999 mls/hr .Q1H1M SHIVANI Administration Ondansetron HCl 4 mg 11/25/23 23:54 11/25/23 23:58 Ondansetron Hcl 4 Mg/2 Ml Vial IVPUSH 11/25/23 23:55 4 mg ONCE ONE Administration Critical Care Time Critical Care Time Critical Care Time: Yes Total Critical Care Time: 45 Attestation: I personally attest to this critical care time spent taking care of the patient exclusive of all other billable procedures was approximately 45 minutes including initial evaluation of patient, ordering tests, x-ray interpretation, EKG interpretation, medical consultation, documentation, re-evaluation. Discharge Plan Discharge Clinical Impression: MAGGIE (acute kidney injury), Alcohol abuse, Suicidal ideation Patient Disposition: Still a Patient Prescriptions: No Action atorvastatin 10 mg Tablet 10 mg PO DAILY Qty: 30 0RF chlorpromazine 100 mg Tablet 50 mg PO BEDTIME Qty: 30 0RF lisinopril 20 mg Tablet 20 mg PO DAILY Qty: 30 0RF Protocol: Hold for SBP< HOLD for SBP < : 90 fluoxetine 40 mg capsule 40 mg PO DAILY Qty: 30 0RF naltrexone 50 mg Tablet 50 mg PO DAILY Qty: 30 0RF cyanocobalamin (vitamin B-12) [Vitamin B-12] 1,000 mcg Tablet 1,000 mcg PO DAILY Qty: 30 0RF metformin 1,000 mg Tablet 1,000 mg PO BID Qty: 60 0RF omeprazole 20 mg Capsule,Delayed Release(Dr/Ec) 20 mg PO DAILY Qty: 30 0RF
[2023-11-25 23:10] VITALS: PULSE 104; RESP 14; O2SAT 97; BMI 29.6
--- NOTE | 2023-11-25 23:16 | ECG_ITS ---
Test Reason : FALL/ETOH Blood Pressure : / mmHG Vent. Rate : 093 BPM Atrial Rate : 093 BPM P-R Int : 146 ms QRS Dur : 074 ms QT Int : 362 ms P-R-T Axes : 049 -12 038 degrees QTc Int : 450 ms Normal sinus rhythm Normal ECG When compared with ECG of 30-MAY-2023 19:47, No significant change was found Referred By: Annalise Caldwell Electronically Signed By:CORINNA HOFFMAN MD
--- NOTE | 2023-11-25 23:55 | PC.NURSE ---
Pt has been difficult to arouse unless spoken to in icelandic, once awake, pt is A&Ox4, calm and cooperative. Pt has been standing and walking independently. BP noted to be low, 20g IV placed in the left AC, labs drawn and sent. Pt having an episode of nausea/vomiting. IV Zofran ordered.
[2023-11-25 23:56] LABS: MANUAL DIFF FLAG NO
[2023-11-25 23:57] LABS: Basophils Absolute Auto 0.1 X10*3/uL (0.0-0.2); Basophils Percent Auto 0.7 % (0-2); Eosinophils Percent Auto 0.3 % (0-4); Hematocrit 36.8 % (42.0-52.0); Imm Gran Abs Auto 0.05 X10*3/uL (0.00-0.03); Imm Gran Pct Auto 0.3 % (0.0-0.4); Lymphocytes Absolute Auto 2.3 X10*3/uL (1.2-4.9); Lymphocytes Percent Auto 15.9 % (20-40); Mean Corpuscular HGB Conc 32.6 g/dl (31.0-36.0); Mean Corpuscular Hemoglobin 28.5 pg (27.0-33.0); Mean Corpuscular Volume 87.4 fL (80.0-98.0); Mean Platelet Volume 9.2 fL (9.4-12.4); Monocytes Absolute Auto 0.7 X10*3/uL (0.1-1.2); Monocytes Percent Auto 4.8 % (2-11); Neutrophils Absolute Auto 11.3 x10*3/uL (2.0-8.3); Platelet Count 328 X10*3/uL (160-400); Red Blood Count 4.21 X10*6/uL (4.60-5.80); Red Cell Distribution Width 15.4 % (11.0-16.0); White Blood Count 14.4 X10*3/uL (4.8-10.8)
[2023-11-25] MEDS: ondansetron HCL 4 MG/2 ML VIAL IVPUSH (23:58)
[2023-11-26] VITALS (8 sets, daily range): BP systolic 102–128; BP diastolic 57–72; PULSE 68–94; RESP 14–21; TEMP 36.4–37.2; O2SAT 95–99
[2023-11-26 00:20] LABS: Troponin-I High Sensitivity 10.5 ng/L (<3.5-35.0)
[2023-11-26 00:23] LABS: Alanine Aminotransferase 40 U/L (0-40); Albumin Level 4.3 g/dL (3.5-5.0); Alkaline Phosphatase 92 U/L (39-117); Anion Gap 21 (12-20); Aspartate Amino Transferase 79 U/L (5-37); Bilirubin Total 0.2 mg/dL (0.0-1.0); Blood Urea Nitrogen 31 mg/dL (9-16); Calcium 8.8 mg/dL (8.4-10.2); Carbon Dioxide 22 mmol/L (22-29); Chloride 102 mmol/L (96-108); Creatinine Clr Calc Pharmacy 26.7; Estimated Glomerular Filt Rate 22; Ethanol 165 mg/dL; Glucose Random 119 mg/dL (60-115); Potassium 4.3 mmol/L (3.3-5.1); Sodium 141 mmol/L (135-145); Total Protein 7.3 g/dL (6.5-8.0)
[2023-11-26] MEDS: 0.9 % Sodium Chloride 1,000 ML 999 ML IV ×2 (01:02→02:31)
--- NOTE | 2023-11-26 01:11 | PC.NURSE ---
Pt has attempted to go outside to have a cigarette on multiple occasions. Pt was redirected multiple times but asked to leave and started to get dressed. AIR CREW SUPERVISOR Dejuan explained to pt, with assistance of rn visiting, that he needs fluids to help his kidneys. Pt agreed, requested a private room. Pt was moved to bed 22 when it opened to give him privacy. Pt was put on clerical transcriber with fluids running inth the right ac
[2023-11-26 01:54] LABS: Amphetamine Screen Urine Not Detected (Not Detect); Barbiturates, Urine Not Detected (Not Detect); Benzodiazepines Screen Urine Not Detected (Not Detect); Cannabinoid Screen Urine POSITIVE (Not Detect); Cocaine Screen Urine Not Detected (Not Detect); Fentanyl, urine Not Detected (Not Detect); Opiate Screen Urine Not Detected (Not Detect); Phencyclidine Screen Urine Not Detected (Not Detect)
[2023-11-26 03:12] LABS: Anion Gap 18 (12-20); Blood Urea Nitrogen 27 mg/dL (9-16); Calcium 8.1 mg/dL (8.4-10.2); Carbon Dioxide 19 mmol/L (22-29); Chloride 108 mmol/L (96-108); Creatinine Clr Calc Pharmacy 35.2; Estimated Glomerular Filt Rate 31; Glucose Random 136 mg/dL (60-115); Potassium 4.5 mmol/L (3.3-5.1); Sodium 140 mmol/L (135-145)
--- NOTE | 2023-11-26 04:23 | P.HPHOSP_ITS ---
History of Present Illness Date of Service: 11/26/23 Chief Complaint: Altered mentation This is a 63-year-old male with pertinent history of alcohol use disorder, ktx-hlibqbx-drtndshcl diabetes mellitus, mood disorder, essential hypertension, mixed hyperlipidemia who was brought to the emergency department after he was found lying on the sidewalk. Patient is Anguillan speaking and history obtained with the help of mercerizing range feeder. Patient states he had a lot of rum and whiskey on the day of presentation. He does not remember how he got to the sidewalk and why he was lying there. He does not have any complaints at the time of my evaluation. Denies history of alcohol withdrawals. No vomiting or diarrhea. Endorses poor p.o. intake for the last 2 days. No fever, chills, chest discomfort, palpitations, shortness of breath, abdominal pain, changes in urinary or bowel habits. Also has suicidal thoughts and ideation but no plan. In the emergency department, patient's creatinine was found to be elevated. Review of Systems 2 Constitutional: Constitutional: Reports poor appetite and Reports weakness Cardiovascular: Cardiovascular: Reports no additional cardiovascular complaints Respiratory: Respiratory: Reports no additional respiratory complaints Gastrointestinal: Gastrointestinal: Reports no additional gastrointestinal complaints Genitourinary: Genitourinary: Reports no additional male genitourinary complaints Neurologic: Reports confusion and Reports weakness Psychiatric: Psychiatric: Reports confusion PMFSH Medical History Mood disorder Mixed hyperlipidemia Essential hypertension Non-insulin dependent type 2 diabetes mellitus Alcohol abuse Pertinent family history: No family history of early CAD Social History Household Members: Other Household Members Other:: Currently homeless Housing: Other Housing Other:: none Do you presently have visiting nurse or other home services: No Alcohol intake: current Alcohol intake frequency: 3 or more drinks per day Patient Tobacco Use Status: Current everyday Tobacco user Tobacco use type: Cigarette Cigarette Packs Per Day: 1 Cigarettes Per Day: 20.0 Years Smoked: 47 Smoked in Last 30 Days: No e-Cigarette/Vaping Use: Former Use Second Hand Smoke Exposure: No (homeless) Substance Use Type: Marijuana Substance Use Frequency: Daily Advance Directives: No Advance Directives Information Provided: No service: No Sexual orientation: Straight/Heterosexual Meds Allergies Allergy/AdvReac Type Severity Reaction Status Date / Time sertraline [From ZOLOFT] Allergy Mild HEADACHES Verified 05/17/23 20:25 Physical Exam 2 Vital Signs and Narrative: Vital Signs: Last Vital Signs Temp 98.6 F 11/26/23 02:00 Pulse 94 11/26/23 02:00 Resp 17 11/26/23 02:00 BP 107/65 11/26/23 02:00 Pulse Ox 98 11/26/23 02:00 O2 Del Method Room Air 11/26/23 02:00 BMI result Body Mass Index 29.6 Middle-aged male lying in bed in no distress Neck supple, no JVD Regular rate and rhythm, S1-S2 heard Regular breath sounds bilaterally, no wheezing or crackles appreciated Abdomen soft nontender, no guarding, no rigidity Patient is awake, alert and oriented to self, place, disoriented to time time ; no focal motor deficit Psych: Normal mood No pedal edema Const: General: confusion Orientation/consciousness: confusion Neuro: General: confusion Results Labs 11/25/23 23:49 11/26/23 02:55 Labs: Laboratory Results - last 24 hr 11/25/23 11/26/23 11/26/23 23:49 01:40 02:55 MCV 87.4 MCH 28.5 MCHC 32.6 RDW 15.4 Plt Count 328 MPV 9.2 L Immature Gran % (Auto) 0.3 Neut % (Auto) 78.0 H Lymph % (Auto) 15.9 L [place] % (Auto) 4.8 Eos % (Auto) 0.3 Baso % (Auto) 0.7 Lymph # (Auto) 2.3 [place] # (Auto) 0.7 Eos # (Auto) 0.0 Baso # (Auto) 0.1 Abs Immat Gran (auto) 0.05 H Absolute Neuts (auto) 11.3 H Absolute Nucleated RBC 0.000 Nucleated RBC % (auto) 0.0 PT 12.0 INR 1.0 Anion Gap 21 H 18 Estim Creat Clear Calc 26.7 35.2 Estimated GFR 22 31 Random Glucose 119 H 136 H Calcium 8.8 8.1 L D Total Bilirubin 0.2 AST 79 H ALT 40 Alkaline Phosphatase 92 Total Protein 7.3 Albumin 4.3 Urine Opiates Screen Not Detected Urine Fentanyl Screen Not Detected Ur Barbiturates Screen Not Detected Ur Phencyclidine Scrn Not Detected Ur Amphetamines Screen Not Detected U Benzodiazepines Scrn Not Detected Urine Cocaine Screen Not Detected U Marijuana (THC) Screen POSITIVE H Ethyl Alcohol 165 Imaging Radiologist's Impressions: Impressions Cervical Spine CT 11/25/23 23:34 IMPRESSION: 1. No acute intracranial process seen. 2. There is no acute fracture, dislocation or subluxation seen in cervical spine. There are large bridging osteophytes from C2-C3 through C6-C7 disc levels disc levels. Head CT 11/25/23 23:34 IMPRESSION: 1. No acute intracranial process seen. 2. There is no acute fracture, dislocation or subluxation seen in cervical spine. There are large bridging osteophytes from C2-C3 through C6-C7 disc levels disc levels. Assessment and Plan (1) MAGGIE (acute kidney injury): Status: Acute (2) Alcohol abuse: Status: Acute Plan This is a 63-year-old male with pertinent history of alcohol use disorder, qyd-yncunuk-jwilfgpmm diabetes mellitus, mood disorder, essential hypertension, mixed hyperlipidemia who was brought to the emergency department after he was found lying on the sidewalk. #. Acute toxic encephalopathy due to alcohol use disorder: Continue to monitor mentation #. Acute kidney injury stage II: Resuscitated with IV crystalloids. Monitor urine output and creatinine with isotonic fluids resuscitation. Avoid nephrotoxins. Urine studies pending #. Alcohol use disorder: Initiated on phenobarb protocol in the ER. Monitor CIWA. Initiating thiamine. Consulted Addiction Team #. Suicidal ideation: Consulting Psychiatry. Patient on 1:1 sitter #. Jgz-xszsmuh-bjfbdpsrv diabetes mellitus: Initiating Accu-Cheks with sliding scale insulin #. Essential hypertension: Hold lisinopril in the setting of MAGGIE #. Gastroesophageal reflux disease: On PPI #. Mood disorder: Continue home mood stabilizers #. Reactive leukocytosis Med rec pending DVT prophylaxis: Lovenox Full code Admit as inpatient and will require two night minimum hospital stay for close monitoring of urine output, serum creatinine (as above), which is not possible in a lesser acute setting. Quality Stroke Does the patient have a stroke diagnosis?: No VTE Prior VTE?: No VTE Risk Level:: Medical - moderate - high VTE Device Contraindication: Treatment Not Indicated VTE Drug Contraindication: N/A - Med Ordered
--- NOTE | 2023-11-26 04:35 | PC.NURSE ---
Pt endorsing SI to ED and hospitalist providers. Pt changed in green gown and belongings secured. Rejiter initiated for pt.
[2023-11-26] MEDS: Melatonin 3 MG TABLET 6 MG PO (05:10)
[2023-11-26] MEDS: PHENobarbitaL sodium 130 MG/ML IM ONCE 202.8 MG IM (05:12)
[2023-11-26] MEDS: Thiamine HCL 100 MG in 0.9 % Sodium Chloride 100 ML 202 MG IV (05:16)
[2023-11-26 07:33] LABS: Glucose, Whole Blood 89 mg/dL (60-115)
[2023-11-26 07:51] LABS: MANUAL DIFF FLAG NO
[2023-11-26 07:52] LABS: Basophils Absolute Auto 0.1 X10*3/uL (0.0-0.2); Basophils Percent Auto 0.8 % (0-2); Eosinophils Absolute Auto 0.2 X10*3/uL (0.0-0.4); Eosinophils Percent Auto 1.7 % (0-4); Hematocrit 31.6 % (42.0-52.0); Hemoglobin 10.5 g/dl (14.0-18.0); Imm Gran Abs Auto 0.02 X10*3/uL (0.00-0.03); Imm Gran Pct Auto 0.2 % (0.0-0.4); Lymphocytes Absolute Auto 1.9 X10*3/uL (1.2-4.9); Lymphocytes Percent Auto 19.2 % (20-40); Mean Corpuscular HGB Conc 33.2 g/dl (31.0-36.0); Mean Corpuscular Hemoglobin 28.5 pg (27.0-33.0); Mean Corpuscular Volume 85.9 fL (80.0-98.0); Monocytes Absolute Auto 0.7 X10*3/uL (0.1-1.2); Monocytes Percent Auto 7.1 % (2-11); Platelet Count 243 X10*3/uL (160-400); Red Blood Count 3.68 X10*6/uL (4.60-5.80); Red Cell Distribution Width 15.2 % (11.0-16.0); White Blood Count 9.8 X10*3/uL (4.8-10.8)
[2023-11-26] MEDS: PHENobarbitaL sodium 130 MG/ML VIAL IM Q3Hx2 153.4 MG IM ×2 (07:54→11:12)
[2023-11-26] MEDS: Thiamine HCL 100 MG TABLET PO (07:55)
[2023-11-26] MEDS: Lactated Ringers 1,000 ML 150 ML IVCONT (07:55)
[2023-11-26 08:07] LABS: Anion Gap 13 (12-20); Blood Urea Nitrogen 22 mg/dL (9-16); Carbon Dioxide 24 mmol/L (22-29); Chloride 107 mmol/L (96-108); Creatinine Clr Calc Pharmacy 51.7; Creatinine Urine 99.51 mg/dL; Estimated Glomerular Filt Rate 48; Glucose Random 97 mg/dL (60-115); Potassium 4.4 mmol/L (3.3-5.1); Sodium 140 mmol/L (135-145)
--- NOTE | 2023-11-26 08:25 | PC.NURSE ---
Resumed care of patient, he is currently sleeping, breaskfast at bedside. IVf started per MAR, all safety measures at this time
[2023-11-26 08:26] LABS: Magnesium 1.6 mg/dL (1.6-2.6)
--- NOTE | 2023-11-26 11:05 | MHC.CM.PN ---
PATIENT IS NOT RESPONDING TO CASE MANAGEMENT ATTEMPTS TO PERFORM ASSESSMENT. PER REVIEW OF NOTES, HE IS AOX4 AND INDEPENDENT WITH AMBULATION.IMM FIRST ATTEMPT LEFT BEDSIDE WITH ANTICIPATED DC AND DATE OF FINANCIAL RESPONSIBILITY. NO PCP OR HCP LISTED IN CHART. CASE MANAGEMENT FOLLOWING. PATIENT IS ADMITTED. PLAN IS FOR CRISIS CONSULT ONCE MEDICALLY STABLE. IMM 2/ COPY IN CHART.
--- NOTE | 2023-11-26 11:16 | PHA.MEDREC ---
Addendum entered by Douglas Sandhu [facility] 11/26/23 12:20: Dr. Zelaya was made aware of the situation. Original Note: Pharmacy Consult ? Medication Reconciliation Pharmacy has completed the medication reconciliation. Spoke to patient (via systems program manager) about his medications. He said that he throw all his medications away . He did take a medication for sleep yesterday but was not able to tell the name of medication.
--- NOTE | 2023-11-26 12:16 | P.PNIM_ITS ---
Subjective Subjective Date of Service: 11/26/23 Interval History: This history was taken in Japanese from the patient. Tired Denies pain Review of Systems Review of Systems: Yes all other systems are reviewed and are negative Physical Exam 2 Vital Signs: Vital Signs: Last Vital Signs Temp 98 F 11/26/23 10:00 Pulse 84 11/26/23 10:00 Resp 14 11/26/23 10:00 BP 111/72 11/26/23 10:00 Pulse Ox 97 11/26/23 10:00 O2 Del Method Room Air 11/26/23 10:00 BMI result Body Mass Index 29.6 Gen: in no acute distress HEENT: sclera anicteric, moist mucus membranes Neck: supple Lungs: clear to auscultation bilaterally Heart: regular rate and rhythm, no murmurs Abd: soft, non-tender, non-distended Ext: no edema Skin: warm/well-perfused Neuro: alert and oriented x3, no focal findings Psych: appropriate affect Objective Data Active Medications Acetaminophen (Acetaminophen 325 Mg Tablet) 650 mg PO Q6H PRN PRN Reason: Pain, Mild (Pain Scale 1-3) Dextrose (Dextrose 50 % 25 Gm/50 Ml Syringe) 25 gm IVPUSH Q15M PRN; Protocol PRN Reason: per Hypoglycemia Standing Ord. Enoxaparin Sodium (Enoxaparin Sodium 40 Mg/0.4 Ml Syringe) 40 mg SUBCUT Q24H [facility] Last Admin: 11/26/23 05:26 Dose: Not Given Documented By: ZINA Non-Admin Reason: Patient Refused Glucose (Glucose Gel 15 Gm Gel..Gram.) 15 gm PO Q15M PRN; Protocol PRN Reason: per Hypoglycemia Standing Ord. Insulin Human Lispro (Insulin Lispro 100 Unit/Ml 3 Ml Vial) 0 unit SUBCUT QIDACHS [facility]; Protocol Last Admin: 11/26/23 07:54 Dose: Not Given Documented By: YVONNE Non-Admin Reason: No Insulin Coverage Melatonin (Melatonin 3 Mg Tablet) 6 mg PO BEDTIME PRN PRN Reason: Insomnia Last Admin: 11/26/23 05:10 Dose: 6 mg Documented By: ZINA Ondansetron HCl (Ondansetron Hcl 4 Mg/2 Ml Vial) 4 mg IVPUSH Q8H PRN PRN Reason: Nausea and Vomiting Pharmacy Consult (Consult Rx Etoh Phenob Im/Po) 1 each MISCELLANE ONCE PRN; Protocol PRN Reason: Consult order Phenobarbital (Phenobarbital 15 Mg Tablet) 45 mg PO BID [facility]; Protocol Stop: 11/28/23 09:01 Phenobarbital (Phenobarbital 30 Mg Tablet) 30 mg PO BID [facility]; Protocol Stop: 11/30/23 09:01 Phenobarbital (Phenobarbital 30 Mg Tablet) 30 mg PO DAILY@2100 [facility]; Protocol Stop: 12/01/23 21:01 Sodium Chloride (0.9 % Sodium Chloride Flush 3 Ml Syringe) 3 ml IVFLUSH QSHIFT [facility] Last Admin: 11/26/23 07:54 Dose: Not Given Documented By: YVONNE Non-Admin Reason: IV Running Thiamine HCl (Thiamine Hcl 100 Mg Tablet) 100 mg PO DAILY [facility] Last Admin: 11/26/23 07:55 Dose: 100 mg Documented By: YVONNE Labs 11/26/23 07:46 11/26/23 07:46 Labs: Laboratory Results - last 24 hr 11/25/23 11/26/23 11/26/23 23:49 01:40 02:55 MCV 87.4 MCH 28.5 MCHC 32.6 RDW 15.4 Plt Count 328 MPV 9.2 L Immature Gran % (Auto) 0.3 Neut % (Auto) 78.0 H Lymph % (Auto) 15.9 L [place] % (Auto) 4.8 Eos % (Auto) 0.3 Baso % (Auto) 0.7 Lymph # (Auto) 2.3 [place] # (Auto) 0.7 Eos # (Auto) 0.0 Baso # (Auto) 0.1 Abs Immat Gran (auto) 0.05 H Absolute Neuts (auto) 11.3 H Absolute Nucleated RBC 0.000 Nucleated RBC % (auto) 0.0 PT 12.0 INR 1.0 Anion Gap 21 H 18 Estim Creat Clear Calc 26.7 35.2 Estimated GFR 22 31 POC Glucose Random Glucose 119 H 136 H Calcium 8.8 8.1 L D Magnesium 1.6 Total Bilirubin 0.2 AST 79 H ALT 40 Alkaline Phosphatase 92 Total Protein 7.3 Albumin 4.3 Ur Random Sodium Urine Creatinine Urine Opiates Screen Not Detected Urine Fentanyl Screen Not Detected Ur Barbiturates Screen Not Detected Ur Phencyclidine Scrn Not Detected Ur Amphetamines Screen Not Detected U Benzodiazepines Scrn Not Detected Urine Cocaine Screen Not Detected U Marijuana (THC) Screen POSITIVE H Ethyl Alcohol 165 11/26/23 11/26/23 07:30 07:46 MCV 85.9 MCH 28.5 MCHC 33.2 RDW 15.2 Plt Count 243 D MPV 9.0 L Immature Gran % (Auto) 0.2 Neut % (Auto) 71.0 Lymph % (Auto) 19.2 L [place] % (Auto) 7.1 Eos % (Auto) 1.7 Baso % (Auto) 0.8 Lymph # (Auto) 1.9 [place] # (Auto) 0.7 Eos # (Auto) 0.2 Baso # (Auto) 0.1 Abs Immat Gran (auto) 0.02 Absolute Neuts (auto) 7.0 Absolute Nucleated RBC 0.000 Nucleated RBC % (auto) 0.0 PT INR Anion Gap 13 Estim Creat Clear Calc 51.7 Estimated GFR 48 POC Glucose 89 Random Glucose 97 Calcium 8.0 L Magnesium Total Bilirubin AST ALT Alkaline Phosphatase Total Protein Albumin Ur Random Sodium 132.0 Urine Creatinine 99.51 Urine Opiates Screen Urine Fentanyl Screen Ur Barbiturates Screen Ur Phencyclidine Scrn Ur Amphetamines Screen U Benzodiazepines Scrn Urine Cocaine Screen U Marijuana (THC) Screen Ethyl Alcohol Quality Stroke Does the patient have a stroke diagnosis?: No VTE Prior VTE?: No VTE Risk Level:: Medical - moderate - high VTE Device Contraindication: Treatment Not Indicated VTE Drug Contraindication: N/A - Med Ordered
--- NOTE | 2023-11-26 12:20 | PM.EVENT ---
Event Note Date of Service: 11/26/23 Event Note: Day hospitalist update S: This history was taken in [place]alander from the patient. Tired, poor historian, denies pain. O: Temp Pulse Resp BP Pulse Ox O2 Del Method 98 F 84 14 111/72 97 Room Air 11/26/23 10:00 11/26/23 10:00 11/26/23 10:00 11/26/23 10:00 11/26/23 10:11/26/23 10:00 Gen: in no acute distress HEENT: sclera anicteric, moist mucus membranes Neck: supple Lungs: clear to auscultation bilaterally Heart: regular rate and rhythm, no murmurs Abd: soft, non-tender, non-distended Ext: no edema Skin: warm/well-perfused Neuro: alert and oriented x3, no focal findings Psych: appropriate affect A/P: d1 63yo M with AUD, DM2, mood disorder, HTN, HLD found intoxicated/lying on sidewalk, admitted for MAGGIE + EtOH withdrawal + SI MAGGIE, prerenal - improving with IV fluids + holding lisinopril AUD with impending withdrawal - phenobarbital taper, thiamine, Addiction Medicine SI - sitter, Psych consult for placement acute toxic-metabolic encephalopathy - monitor mentation DM2 - correction-dose lispro, DM diet HTN - hold lisinopril as above VTE ppx - LMWH dispo - TBD In my clinical judgment, the patient requires continued hospitalization for the following reasons: inpt withdrawal management, MAGGIE Time Spent With Patient Time: Total time managing care of this patient today ____ minutes.
[2023-11-26 12:33] LABS: Glucose, Whole Blood 90 mg/dL (60-115)
[2023-11-26 16:32] LABS: Glucose, Whole Blood 68 mg/dL (60-115)
[2023-11-26 17:46] LABS: Glucose, Whole Blood 92 mg/dL (60-115)
--- NOTE | 2023-11-26 17:53 | PC.NURSE ---
POC 68 at 1625- OJ given and repeat POC 92. Pt eating dinner at this time
[2023-11-26 19:59] LABS: Glucose, Whole Blood 157 mg/dL (60-115)
[2023-11-26] MEDS: Insulin Lispro 100 UNIT/ML 3 ML VIAL SUBCUT (20:50)
[2023-11-26] MEDS: PHENobarbitaL 15 MG TABLET 45 MG PO (20:50)
[2023-11-26] MEDS: 0.9 % Sodium Chloride Flush 3 ML SYRINGE IVFLUSH (20:50)
[2023-11-26] MEDS: Acetaminophen 325 MG TABLET 650 MG PO (20:56)
[2023-11-27 03:29] VITALS: BP 114/72; PULSE 66; RESP 16; TEMP 36.2; O2SAT 98
[2023-11-27 05:28] LABS: Hematocrit 34.4 % (42.0-52.0); Hemoglobin 11.3 g/dl (14.0-18.0); Mean Corpuscular HGB Conc 32.8 g/dl (31.0-36.0); Mean Corpuscular Hemoglobin 28.3 pg (27.0-33.0); Mean Corpuscular Volume 86.2 fL (80.0-98.0); Mean Platelet Volume 9.3 fL (9.4-12.4); Platelet Count 255 X10*3/uL (160-400); Red Blood Count 3.99 X10*6/uL (4.60-5.80); Red Cell Distribution Width 14.8 % (11.0-16.0); White Blood Count 5.9 X10*3/uL (4.8-10.8)
[2023-11-27 05:45] LABS: Anion Gap 15 (12-20); Blood Urea Nitrogen 16 mg/dL (9-16); Calcium 8.4 mg/dL (8.4-10.2); Carbon Dioxide 24 mmol/L (22-29); Chloride 104 mmol/L (96-108); Estimated Glomerular Filt Rate > 60; Glucose Random 113 mg/dL (60-115); Magnesium 1.5 mg/dL (1.6-2.6); Potassium 4.2 mmol/L (3.3-5.1); Sodium 139 mmol/L (135-145)
[2023-11-27] MEDS: Enoxaparin Sodium 40 MG/0.4 ML SYRINGE SUBCUT (06:31)
[2023-11-27 07:30] VITALS: BP 108/67; PULSE 63; RESP 18; TEMP 36.5; O2SAT 95
[2023-11-27 07:43] LABS: Glucose, Whole Blood 174 mg/dL (60-115)
[2023-11-27] MEDS: Magnesium Oxide 400 MG TABLET PO ×2 (08:22→17:23)
[2023-11-27] MEDS: Thiamine HCL 100 MG TABLET PO (08:22)
[2023-11-27] MEDS: PHENobarbitaL 15 MG TABLET 45 MG PO ×2 (08:23→20:22)
[2023-11-27] MEDS: Insulin Lispro 100 UNIT/ML 3 ML VIAL SUBCUT (08:25)
[2023-11-27] MEDS: Magnesium Sulfate/H2O 2 GM/50 ML PIGGYBACK IV (08:29)
[2023-11-27] MEDS: 0.9 % Sodium Chloride Flush 3 ML SYRINGE IVFLUSH ×3 (08:29→19:59)
--- NOTE | 2023-11-27 08:44 | P.PNIM_ITS ---
Subjective Subjective Date of Service: 11/27/23 Interval History: This history was taken in Albanian from the patient. Endorses depression + SI. No tremors. No N/V/abd pain. Review of Systems Review of Systems: Yes all other systems are reviewed and are negative Physical Exam 2 Vital Signs: Vital Signs: Last Vital Signs Temp 97.7 F 11/27/23 07:30 Pulse 63 11/27/23 07:30 Resp 18 11/27/23 07:30 BP 108/67 11/27/23 07:30 Pulse Ox 95 11/27/23 07:30 O2 Del Method Room Air 11/27/23 07:30 BMI result Body Mass Index 29.6 Gen: in no acute distress HEENT: sclera anicteric, moist mucus membranes Neck: supple Lungs: clear to auscultation bilaterally Heart: regular rate and rhythm, no murmurs Abd: soft, non-tender, non-distended Ext: no edema Skin: warm/well-perfused Neuro: alert and oriented x3, no focal findings Psych: restricted affect Objective Data Active Medications Acetaminophen (Acetaminophen 325 Mg Tablet) 650 mg PO Q6H PRN PRN Reason: Pain, Mild (Pain Scale 1-3) Last Admin: 11/26/23 20:56 Dose: 650 mg Documented By: MORENA Dextrose (Dextrose 50 % 25 Gm/50 Ml Syringe) 25 gm IVPUSH Q15M PRN; Protocol PRN Reason: per Hypoglycemia Standing Ord. Enoxaparin Sodium (Enoxaparin Sodium 40 Mg/0.4 Ml Syringe) 40 mg SUBCUT Q24H [facility] Last Admin: 11/27/23 06:31 Dose: 40 mg Documented By: JAY Glucose (Glucose Gel 15 Gm Gel..Gram.) 15 gm PO Q15M PRN; Protocol PRN Reason: per Hypoglycemia Standing Ord. Magnesium Sulfate (Magnesium Sulfate/H2o) 2 gm in 50 mls @ 25 mls/hr IV ONCE ONE Stop: 11/27/23 09:11 Last Admin: 11/27/23 08:29 Dose: 25 mls/hr Documented By: RAMÍREZ Insulin Human Lispro (Insulin Lispro 100 Unit/Ml 3 Ml Vial) 0 unit SUBCUT QIDACHS [facility]; Protocol Last Admin: 11/27/23 08:25 Dose: 2 unit Documented By: RAMÍREZ Magnesium Oxide (Magnesium Oxide 400 Mg Tablet) [facility] Last Admin: 11/27/23 08:22 Dose: 400 mg Documented By: RAMÍREZ Melatonin (Melatonin 3 Mg Tablet) 6 mg PO BEDTIME PRN PRN Reason: Insomnia Last Admin: 11/26/23 05:10 Dose: 6 mg Documented By: ZINA Ondansetron HCl (Ondansetron Hcl 4 Mg/2 Ml Vial) 4 mg IVPUSH Q8H PRN PRN Reason: Nausea and Vomiting Pharmacy Consult (Consult Rx Etoh Phenob Im/Po) 1 each MISCELLANE ONCE PRN; Protocol PRN Reason: Consult order Phenobarbital (Phenobarbital 15 Mg Tablet) 45 mg PO BID [facility]; Protocol Stop: 11/28/23 09:01 Last Admin: 11/27/23 08:23 Dose: 45 mg Documented By: RAMÍREZ Phenobarbital (Phenobarbital 30 Mg Tablet) 30 mg PO BID [facility]; Protocol Stop: 11/30/23 09:01 Phenobarbital (Phenobarbital 30 Mg Tablet) 30 mg PO DAILY@2100 [facility]; Protocol Stop: 12/01/23 21:01 Sodium Chloride (0.9 % Sodium Chloride Flush 3 Ml Syringe) 3 ml IVFLUSH QSHIFT [facility] Last Admin: 11/27/23 08:29 Dose: 3 ml Documented By: RAMÍREZ Thiamine HCl (Thiamine Hcl 100 Mg Tablet) 100 mg PO DAILY [facility] Last Admin: 11/27/23 08:22 Dose: 100 mg Documented By: RAMÍREZ Labs 11/27/23 05:08 11/27/23 05:08 Labs: Laboratory Results - last 24 hr 11/26/23 11/26/23 11/26/23 12:29 16:21 17:42 MCV MCH MCHC RDW Plt Count MPV Absolute Nucleated RBC Nucleated RBC % (auto) Anion Gap Estim Creat Clear Calc Estimated GFR POC Glucose 90 68 92 Random Glucose Calcium Magnesium 11/26/23 11/27/23 11/27/23 19:51 05:08 07:17 MCV 86.2 MCH 28.3 MCHC 32.8 RDW 14.8 Plt Count 255 MPV 9.3 L Absolute Nucleated RBC 0.000 Nucleated RBC % (auto) 0.0 Anion Gap 15 Estim Creat Clear Calc 89.0 Estimated GFR > 60 POC Glucose 157 H 174 H Random Glucose 113 Calcium 8.4 Magnesium 1.5 L Assessment and Plan (1) MAGGIE (acute kidney injury): Status: Acute Plan d2 63yo M with AUD, DM2, mood disorder, HTN, HLD found intoxicated/lying on sidewalk, admitted for MAGGIE + EtOH withdrawal + SI MAGGIE, prerenal - resolved with giving IV fluids + holding lisinopril AUD with impending withdrawal - phenobarbital taper, thiamine, Addiction Medicine consult pending hypoMg - replete SI - sitter, Psychiatry consult for placement acute toxic-metabolic encephalopathy - resolved, was due to intoxication DM2 - correction-dose lispro, DM diet HTN - held lisinopril as above VTE ppx - LMWH dispo - will need Psychiatry placement and he is now medically cleared. In my clinical judgment, the patient requires continued hospitalization for the following reasons: psychiatric placement Total time managing care of this patient today: 35 minutes. Quality Stroke Does the patient have a stroke diagnosis?: No VTE Prior VTE?: No VTE Risk Level:: Medical - moderate - high VTE Device Contraindication: Treatment Not Indicated VTE Drug Contraindication: N/A - Med Ordered
[2023-11-27 11:41] LABS: Glucose, Whole Blood 99 mg/dL (60-115)
[2023-11-27 15:06] VITALS: BP 133/66; PULSE 64; RESP 17; TEMP 36.7; O2SAT 96
--- NOTE | 2023-11-27 15:19 | MHC.CARE ---
CARE Team faxed ACCS referral to [facility]. Referral has been received and is under review. Please follow up
--- NOTE | 2023-11-27 16:11 | MHC.RECOVRN ---
Met with pt in 346, along with plating tank operator, after consult placed to Addiction Medicine for alcohol use. Pt had presented to the ED after found sleeping on the sidewalk. Pt reported drinking several beers and marijuana use. Upon evaluation, pt admitted for MAGGIE and alcohol use. Pt reports SI, awaiting CARE Team consult. Pt sitting in bed, awake, alert, easily engages in conversation. Pt reports alcohol use, approx 15 nips x 2 days, last use prior to presentation. Pt reports prior to a couple days ago he had been in recovery x 6 months utilizing Vivitrol. Pt reports he missed his injection appt at [facility] and returned to use. Pt focused on housing at this time, however, would like to receive Vivitrol once housing has stabilized. Discussed naltrexone PO while here, pt agreeable. Pt provided with [facility]Y info as well as [facility] if needed. Denies questions or concerns for t/w. Discussed with Geneva Clay APRN.
[2023-11-27 16:19] LABS: Glucose, Whole Blood 106 mg/dL (60-115)
--- NOTE | 2023-11-27 17:50 | PC.NURSE ---
Assumed care at 1520 - patient resting in bed, no complaints at this time. First dose of Naltrexone due at 1620, medication not available on the unit. At 1640 called pharmacy and requested medication.
[2023-11-27 19:58] VITALS: BP 100/60; PULSE 68; RESP 18; TEMP 36.4
[2023-11-27] MEDS: Acetaminophen 325 MG TABLET 650 MG PO (19:59)
[2023-11-27 20:01] LABS: Glucose, Whole Blood 142 mg/dL (60-115)
--- NOTE | 2023-11-27 20:08 | P.DS_ITS ---
DS: Providers Provider Date of Service: 11/27/23 Date of admission: 11/26/23 04:22 Date of discharge: 11/27/23 Primary care physician: Unknown Physician Consults: 11/26/23 04:21 Consult for Sitter Routine Reason for consultation: suicidal 11/26/23 04:46 Consult to Psychiatry Routine Consulting Provider: Psych Covering Reason for consultation: Suicidal ideation 11/26/23 04:53 Addiction Medicine Routine Consulting Provider: Addiction Covering Reason for consultation: alcohol use disorder 11/27/23 07:12 Consult to Care Team Routine Comment: Reason for consultation: suicidal. etoh withdrwaal. medically cleared DS: Diagnosis Discharge Diagnosis (1) MAGGIE (acute kidney injury): Status: Acute (2) Mood disorder: Status: Acute (3) Alcohol abuse: Status: Acute (4) Alcohol withdrawal: Status: Acute (5) Hypomagnesemia: Status: Inactive (6) Toxic metabolic encephalopathy: Status: Acute DS: Summary Hospital Course Hospital Course: from admission H+P by hospitalist Kailyn Allen MD, 11/26/23: This is a 63-year-old male with pertinent history of alcohol use disorder, bvv-abvmfum-rinjumunj diabetes mellitus, mood disorder, essential hypertension, mixed hyperlipidemia who was brought to the emergency department after he was found lying on the sidewalk. Patient is Slovak speaking and history obtained with the help of south asian history professor. Patient states he had a lot of rum and whiskey on the day of presentation. He does not remember how he got to the sidewalk and why he was lying there. He does not have any complaints at the time of my evaluation. Denies history of alcohol withdrawals. No vomiting or diarrhea. Endorses poor p.o. intake for the last 2 days. No fever, chills, chest discomfort, palpitations, shortness of breath, abdominal pain, changes in urinary or bowel habits. Also has suicidal thoughts and ideation but no plan. In the emergency department, patient's creatinine was found to be elevated. Mr Orellana is a 63yo M with AUD, DM2, mood disorder, HTN, and HLD who was found intoxicated/lying on sidewalk. He was admitted to the hospitalist service for MAGGIE + EtOH withdrawal + SI. MAGGIE was due to prerenal azotemia and resolved with holding lisinopril and giving IV fluids. For AUD with impending withdrawal, he was treated with a phenobarbital taper. Addiction Medicine was consulted and he was placed on naltrexone. Hypomagnesemia was repleted. Due to suicidal ideation, he was transferred to the inpatient psychiatry unit. He should continue the phenobarbital taper along with magnesium replacement. A repeat BMP and magnesium level should be checked in 2-3 days. Time Attestation Discharge coordination time: Greater than 30 minutes Quality: Safe Use of Opioids Does Pt have an Active Cancer Diagnosis on the Problem List?: No Quality: Stroke Does the patient have a stroke diagnosis?: No Physical Exam Vital Signs: Vital Signs: Last Vital Signs Temp 97.6 F 11/27/23 19:58 Pulse 68 11/27/23 19:58 Resp 18 11/27/23 19:58 BP 100/60 11/27/23 19:58 Pulse Ox 96 11/27/23 15:06 O2 Del Method Room Air 11/27/23 15:06 BMI result Body Mass Index 29.6 Gen: in no acute distress HEENT: sclera anicteric, moist mucus membranes Neck: supple Lungs: clear to auscultation bilaterally Heart: regular rate and rhythm, no murmurs Abd: soft, non-tender, non-distended Ext: no edema Skin: warm/well-perfused Neuro: alert and oriented x3, no focal findings Psych: restricted affect DS: Data Data Completed and Pending Completed studies during hospitalization [Text1]: Laboratory Results WBC 5.9 X10*3/uL (4.8-10.8) 11/27/23 05:08 RBC 3.99 X10*6/uL (4.60-5.80) L 11/27/23 05:08 Hgb 11.3 g/dl (14.0-18.0) L 11/27/23 05:08 Hct 34.4 % (42.0-52.0) L 11/27/23 05:08 MCV 86.2 fL (80.0-98.0) 11/27/23 05:08 MCH 28.3 pg (27.0-33.0) 11/27/23 05:08 MCHC 32.8 g/dl (31.0-36.0) 11/27/23 05:08 RDW 14.8 % (11.0-16.0) 11/27/23 05:08 Plt Count 255 X10*3/uL (160-400) 11/27/23 05:08 MPV 9.3 fL (9.4-12.4) L 11/27/23 05:08 Immature Gran % (Auto) 0.2 % (0.0-0.4) 11/26/23 07:46 Neut % (Auto) 71.0 % (45-73) 11/26/23 07:46 Lymph % (Auto) 19.2 % (20-40) L 11/26/23 07:46 [place] % (Auto) 7.1 % (2-11) 11/26/23 07:46 Eos % (Auto) 1.7 % (0-4) 11/26/23 07:46 Baso % (Auto) 0.8 % (0-2) 11/26/23 07:46 Lymph # (Auto) 1.9 X10*3/uL (1.2-4.9) 11/26/23 07:46 [place] # (Auto) 0.7 X10*3/uL (0.1-1.2) 11/26/23 07:46 Eos # (Auto) 0.2 X10*3/uL (0.0-0.4) 11/26/23 07:46 Baso # (Auto) 0.1 X10*3/uL (0.0-0.2) 11/26/23 07:46 Abs Immat Gran (auto) 0.02 X10*3/uL (0.00-0.03) 11/26/23 07:46 Absolute Neuts (auto) 7.0 x10*3/uL (2.0-8.3) 11/26/23 07:46 Absolute Nucleated RBC 0.000 X10*3/uL (0.0-0.012) 11/27/23 05:08 Nucleated RBC % (auto) 0.0 /100WBC (0.0-0.2) 11/27/23 05:08 PT 12.0 SEC (11.1-13.3) 11/25/23 23:49 INR 1.0 (0.9-1.1) 11/25/23 23:49 Sodium 139 mmol/L (135-145) 11/27/23 05:08 Potassium 4.2 mmol/L (3.3-5.1) 11/27/23 05:08 Chloride 104 mmol/L (96-108) 11/27/23 05:08 Carbon Dioxide 24 mmol/L (22-29) 11/27/23 05:08 Anion Gap 15 (12-20) 11/27/23 05:08 BUN 16 mg/dL (9-16) 11/27/23 05:08 Creatinine 0.86 mg/dL (0.5-1.4) 11/27/23 05:08 Estim Creat Clear Calc 89.0 11/27/23 05:08 Estimated GFR > 60 11/27/23 05:08 POC Glucose 142 mg/dL (60-115) H 11/27/23 19:57 Random Glucose 113 mg/dL (60-115) 11/27/23 05:08 Calcium 8.4 mg/dL (8.4-10.2) 11/27/23 05:08 Magnesium 1.5 mg/dL (1.6-2.6) L 11/27/23 05:08 Total Bilirubin 0.2 mg/dL (0.0-1.0) 11/25/23 23:49 AST 79 U/L (5-37) H 11/25/23 23:49 ALT 40 U/L (0-40) 11/25/23 23:49 Alkaline Phosphatase 92 U/L (39-117) 11/25/23 23:49 Troponin I High Sens 10.5 ng/L (<3.5-35.0) D 11/25/23 23:49 Total Protein 7.3 g/dL (6.5-8.0) 11/25/23 23:49 Albumin 4.3 g/dL (3.5-5.0) 11/25/23 23:49 Ur Random Sodium 132.0 mmol/L 11/26/23 07:46 Urine Creatinine 99.51 mg/dL 11/26/23 07:46 Urine Opiates Screen Not Detected (Not Detect) 11/26/23 01:40 Urine Fentanyl Screen Not Detected (Not Detect) 11/26/23 01:40 Ur Barbiturates Screen Not Detected (Not Detect) 11/26/23 01:40 Ur Phencyclidine Scrn Not Detected (Not Detect) 11/26/23 01:40 Ur Amphetamines Screen Not Detected (Not Detect) 11/26/23 01:40 U Benzodiazepines Scrn Not Detected (Not Detect) 11/26/23 01:40 Urine Cocaine Screen Not Detected (Not Detect) 11/26/23 01:40 U Marijuana (THC) Screen POSITIVE (Not Detect) H 11/26/23 01:40 Ethyl Alcohol 165 mg/dL 11/25/23 23:[address] 11/25/23 23:34 IMPRESSION: 1. No acute intracranial process seen. 2. There is no acute fracture, dislocation or subluxation seen in cervical spine. There are large bridging osteophytes from C2-C3 through C6-C7 disc levels disc levels. Head CT 11/25/23 23:34 IMPRESSION: 1. No acute intracranial process seen. 2. There is no acute fracture, dislocation or subluxation seen in cervical spine. There are large bridging osteophytes from C2-C3 through C6-C7 disc levels disc levels. Labs on day of discharge: Laboratory Results - last 24 hr 11/27/23 11/27/23 11/27/23 05:08 07:17 11:32 WBC 5.9 RBC 3.99 L Hgb 11.3 L Hct 34.4 L MCV 86.2 MCH 28.3 MCHC 32.8 RDW 14.8 Plt Count 255 MPV 9.3 L Absolute Nucleated RBC 0.000 Nucleated RBC % (auto) 0.0 Sodium 139 Potassium 4.2 Chloride 104 Carbon Dioxide 24 Anion Gap 15 BUN 16 Creatinine 0.86 Estim Creat Clear Calc 89.0 Estimated GFR > 60 POC Glucose 174 H 99 Random Glucose 113 Calcium 8.4 Magnesium 1.5 L 11/27/23 11/27/23 16:15 19:57 WBC RBC Hgb Hct MCV MCH MCHC RDW Plt Count MPV Absolute Nucleated RBC Nucleated RBC % (auto) Sodium Potassium Chloride Carbon Dioxide Anion Gap BUN Creatinine Estim Creat Clear Calc Estimated GFR POC Glucose 106 142 H Random Glucose Calcium Magnesium Discharge Plan Discharge Anticipated Discharge Date/Time: 11/27/23 19:54 Patient Disposition: Xfer Psychiatric Hosp Discharge Diagnosis: Depression, SI, MAGGIE Referrals: Physician,Unknown J [Primary Care Provider] - 1 Week Discharge Medications: New magnesium oxide 400 mg (241.3 mg magnesium) Tablet 400 mg PO BIDPC Qty: 60 0RF phenobarbital 15 mg Tablet 45 mg PO BID Qty: 1 0RF phenobarbital 30 mg Tablet 30 mg PO BID Qty: 1 0RF phenobarbital 30 mg Tablet 30 mg PO DAILY@2100 Qty: 1 0RF thiamine mononitrate (vit B1) 100 mg Tablet 100 mg PO DAILY Qty: 30 0RF Continued atorvastatin 10 mg Tablet 10 mg PO DAILY Qty: 30 0RF chlorpromazine 100 mg Tablet 50 mg PO BEDTIME Qty: 30 0RF lisinopril 20 mg Tablet 20 mg PO DAILY Qty: 30 0RF Protocol: Hold for SBP< HOLD for SBP < : 90 fluoxetine 40 mg capsule 40 mg PO DAILY Qty: 30 0RF naltrexone 50 mg Tablet 50 mg PO DAILY Qty: 30 0RF cyanocobalamin (vitamin B-12) [Vitamin B-12] 1,000 mcg Tablet 1,000 mcg PO DAILY Qty: 30 0RF metformin 1,000 mg Tablet 1,000 mg PO BID Qty: 60 0RF omeprazole 20 mg Capsule,Delayed Release(Dr/Ec) 20 mg PO DAILY Qty: 30 0RF Diet: Diabetic diet Activity on Discharge: As tolerated Stand Alone Forms: Patient Portal Discharge page Care Plan Goals: management of depression and SI Health Concerns: Depression, SI Plan of Treatment: psych admission for depression and SI
--- NOTE | 2023-11-27 21:15 | PC.NURSE ---
pt transfer to M3 ambulatory with sitter and staff interpreter. hand off report to M3 nurse Rosa Maria. pt voluntary to going to M3. pt vitals are stable. AOx4. IV removed. discharge assessment is done.
== END 2023-11-27 21:06 | DRG 682 ==
LOC: HO.ED 11-26 01:50 → HO.EDOVER 11-26 04:47 → HO.S3 11-26 11:15
PROVIDERS: Nurse Practitioner Family; Admitting Provider Student in an Organized Health Care Education/Training Program; Emergency Provider Student in an Organized Health Care Education/Training Program; Visit Provider Family Medicine
DX: N17.9 Acute kidney failure, unspecified (principal); G92.8 Other toxic encephalopathy; R45.851 Suicidal ideations; Z59.02 Unsheltered homelessness; F39 Unspecified mood [affective] disorder; E83.42 Hypomagnesemia; E11.9 Type 2 diabetes mellitus without complications; I10 Essential (primary) hypertension; F10.129 Alcohol abuse with intoxication, unspecified; K21.9 Gastro-esophageal reflux disease without esophagitis; E78.2 Mixed hyperlipidemia; Y90.6 Blood alcohol level of 120-199 mg/100 ml; Z79.84 Long term (current) use of oral hypoglycemic drugs; Z79.899 Other long term (current) drug therapy
CPT/HCPCS: 36415; 70450; 72125; 80048; 80053; 80307; 82570; 82947; 83735; 84300; 84484; 85025; 85027; 85610; 93005; 99285; J1650; J2405; J2560; J3411; J3475; J7120; S9485

== ENCOUNTER → 2023-11-25 23:16 | Outpatient (BNV) | payer OTHER, SELFPAY | PROVIDERS: Admitting Provider Student in an Organized Health Care Education/Training Program; Emergency Provider Student in an Organized Health Care Education/Training Program; Visit Provider Internal Medicine Cardiovascular Disease | DX: R07.9 Chest pain, unspecified (principal) | CPT/HCPCS: 93010 ==

== ENCOUNTER → 2023-11-26 04:22 | Outpatient (BNV) | payer OTHER, SELFPAY | PROVIDERS: Admitting Provider Student in an Organized Health Care Education/Training Program; Emergency Provider Student in an Organized Health Care Education/Training Program; Visit Provider Student in an Organized Health Care Education/Training Program | DX: N17.9 Acute kidney failure, unspecified (principal); F39 Unspecified mood [affective] disorder; F10.139 Alcohol abuse with withdrawal, unspecified; E83.42 Hypomagnesemia; G92.8 Other toxic encephalopathy | CPT/HCPCS: 99223; 99239; 99499 ==

== ENCOUNTER 2023-11-27 21:14 | Inpatient (IN) | payer OTHER, SELFPAY ==
[2023-11-27 21:45] VITALS: BP 142/79; PULSE 64; RESP 18; TEMP 36.4; O2SAT 97
[2023-11-27 22:35] VITALS: BMI 26.5
[2023-11-27 22:37] LABS: Glucose, Whole Blood 159 mg/dL (60-115)
--- NOTE | 2023-11-27 23:14 | PC.ADMIT ---
Milind was transferred from S3 for admission onto M3 for suicidal ideation and depression. Patient signed a CV upon arrival to the unit, admission was Store Receiving Clerk lead. Per the crisis report patient was found unconscious with a BAL of 165 upon arrival to the ED. patient continues to endorse suicidal ideation with auditory hallucinations. Patient states that he hears CAH to go with my father. (He killed himself). I also hear my father saying to come and be with him. Patient is currently on a phenobarbital taper for ETOH withdrawal following a recent relapse after a reported 6 months of sobriety. Patient also endorses long standing daily marijuana use. Patient answered all assessment questions and signed all admission documents, Treatment plan initiated monitor for safety. During admission patient stated that he does not want to go to [facility], I have some problems with them over there . Milind also stated he hopes that someone can help me to buy a ticket or help me access my card so I can pay for my own ticket to go back to [place]
[2023-11-28] MEDS: hydrOXYzine HCL 25 MG TABLET PO ×2 (05:28→21:59)
[2023-11-28 08:34] LABS: Anion Gap 12 (12-20); Blood Urea Nitrogen 15 mg/dL (9-16); Calcium 8.6 mg/dL (8.4-10.2); Carbon Dioxide 28 mmol/L (22-29); Chloride 102 mmol/L (96-108); Creatinine Clr Calc Pharmacy 80.3; Estimated Glomerular Filt Rate > 60; Glucose Random 138 mg/dL (60-115); Magnesium 1.6 mg/dL (1.6-2.6); Potassium 4.7 mmol/L (3.3-5.1); Sodium 137 mmol/L (135-145)
[2023-11-28 09:13] VITALS: BP 122/82; PULSE 66; RESP 18; TEMP 36.2; O2SAT 97
[2023-11-28] MEDS: Thiamine HCL 100 MG TABLET PO (09:15)
[2023-11-28] MEDS: Naltrexone HCl 50 MG TABLET PO (09:15)
[2023-11-28] MEDS: Magnesium Oxide 400 MG TABLET PO ×2 (09:15→17:02)
[2023-11-28] MEDS: PHENobarbitaL 15 MG TABLET 45 MG PO (09:15)
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
[2023-11-28 21:30] VITALS: BP 113/60; PULSE 70; RESP 16; TEMP 36.7; O2SAT 95
[2023-11-28] MEDS: PHENobarbitaL 30 MG TABLET PO (21:58)
[2023-11-28] MEDS: chlorproMAZINE HCl 25 MG TABLET 50 MG PO (21:59)
[2023-11-28] MEDS: metFORMIN HCl 1,000 MG TABLET 1000 MG PO (21:59)
[2023-11-29 07:25] VITALS: BP 119/67; PULSE 73; RESP 14; TEMP 36.3; O2SAT 97
[2023-11-29] MEDS: Naltrexone HCl 50 MG TABLET PO (08:37)
[2023-11-29] MEDS: Omeprazole 20 MG CAPSULE.DR PO (08:37)
[2023-11-29] MEDS: Cyanocobalamin (Vitamin B-12) 1,000 MCG TABLET 1000 MCG PO (08:37)
[2023-11-29] MEDS: lisinopriL 20 MG TABLET PO (08:37)
[2023-11-29] MEDS: PHENobarbitaL 30 MG TABLET PO ×2 (08:37→19:49)
[2023-11-29] MEDS: Thiamine HCL 100 MG TABLET PO (08:37)
[2023-11-29] MEDS: Atorvastatin Calcium 10 MG TABLET PO (08:38)
[2023-11-29] MEDS: metFORMIN HCl 1,000 MG TABLET 1000 MG PO ×2 (08:38→19:49)
[2023-11-29] MEDS: Magnesium Oxide 400 MG TABLET PO ×2 (08:38→16:58)
[2023-11-29] MEDS: FLUoxetine HCl 20 MG CAPSULE 40 MG PO (08:38)
--- NOTE | 2023-11-29 13:44 | HO.PSYCHPN ---
Subjective Subjective Date of Service: 11/29/23 Reason For Visit: mental health crisis Interim History: seen with SANTOS and principal systems engineer. calm, cooperative. mood a little better, denies SI/SIBI, enies AH since last night. SANTOS Rodriguez engages pt in discussion around dispo planning and social supports. pt expresses interest in applying to [facility]. per staff, slept 8 hours. reporting regular depression and anxiety. Mental Status Exam Mental Status Exam Narrative: calm, cooperative, tongan speaking only. street clothes, adequately dressed and groomed. no PMA/PMR. cooperative. speech soft and mildly slowed, monotone. thoughts linear and illogical, also jumbled and hard to follow at times. affect constricted, normo-intense, non-labile. mood i feel a little better. denies SI/SIBI. denies HI/VH. denies AH since last NOC. Diagnostics Vital Signs (24Hr): Vital Signs - 24 hr 11/28/23 21:30 11/29/23 07:25 Temperature 98.1 F 97.3 F Pulse Rate 70 73 Respiratory Rate 16 14 Blood Pressure 113/60 119/67 Pulse Oximetry 95 97 Oxygen Delivery Method Room Air Room Air BMI result Body Mass Index 26.5 Labs 11/28/23 07:54 Labs: Laboratory Results - last 48 hr 11/27/23 11/28/23 21:47 07:54 Hold Purple Top SEE NOTE Sodium 137 Potassium 4.7 Chloride 102 Carbon Dioxide 28 Anion Gap 12 BUN 15 Creatinine 0.88 Estim Creat Clear Calc 80.3 Estimated GFR > 60 POC Glucose 159 H Random Glucose 138 H Calcium 8.6 Magnesium 1.6 Medications Medications Current Medications Acetaminophen (Acetaminophen 325 Mg Tablet) 650 mg PO Q6H PRN PRN Reason: Headache/Pain Mild Scale (1-3) Al Hydroxide/Mg Hydroxide (Magnesium Hydrox/Alum Hydrox 30 Ml Oral.Susp) 30 ml PO Q6H PRN PRN Reason: Heartburn/Nausea Atorvastatin Calcium (Atorvastatin Calcium 10 Mg Tablet) 10 mg PO DAILY [facility] Last Admin: 11/29/23 08:38 Dose: 10 mg Chlorpromazine HCl (Chlorpromazine Hcl 25 Mg Tablet) 50 mg PO BEDTIME SHIVANI Last Admin: 11/28/23 21:59 Dose: 50 mg Chlorpromazine HCl (Chlorpromazine Hcl 25 Mg Tablet) 50 mg PO BEDTIME PRN PRN Reason: insomnia Cyanocobalamin (Cyanocobalamin (Vitamin B-12) 1,000 Mcg Tablet) 1,000 mcg PO DAILY [facility] Last Admin: 11/29/23 08:37 Dose: 1,000 mcg Fluoxetine HCl (Fluoxetine Hcl 20 Mg Capsule) 40 mg PO DAILY [facility] Last Admin: 11/29/23 08:38 Dose: 40 mg Hydroxyzine HCl (Hydroxyzine Hcl 25 Mg Tablet) 25 mg PO Q6H PRN PRN Reason: Anxiety Last Admin: 11/28/23 21:59 Dose: 25 mg Lisinopril (Lisinopril 20 Mg Tablet) 20 mg PO DAILY [facility]; Protocol Last Admin: 11/29/23 08:37 Dose: 20 mg Magnesium Hydroxide (Milk Of Magnesia 30 Ml Oral.Susp) 30 ml PO DAILY PRN PRN Reason: Constipation Magnesium Oxide ([facility] 400 Mg Tablet) [facility] Admin: 11/29/23 08:38 Dose: 400 mg Metformin HCl (Metformin Hcl 1,000 Mg Tablet) 1,000 mg PO BID [facility] Last Admin: 11/29/23 08:38 Dose: 1,000 mg Naltrexone HCl (Naltrexone Hcl 50 Mg Tablet) 50 mg PO DAILY [facility] Last Admin: 11/29/23 08:37 Dose: 50 mg Nicotine Polacrilex (Nicotine Polacrilex 2 Mg Gum) 4 mg BUCCAL Q2H PRN PRN Reason: Nicotine Cravings Omeprazole (Omeprazole 20 Mg Capsule.Dr) 20 mg PO DAILY [facility] Last Admin: 11/29/23 08:37 Dose: 20 mg Phenobarbital (Phenobarbital 30 Mg Tablet) 30 mg PO BID [facility]; Protocol Stop: 11/30/23 09:01 Last Admin: 11/29/23 08:37 Dose: 30 mg Phenobarbital (Phenobarbital 30 Mg Tablet) 30 mg PO DAILY@2100 [facility]; Protocol Stop: 12/01/23 21:01 Thiamine HCl (Thiamine Hcl 100 Mg Tablet) 100 mg PO DAILY [facility] Last Admin: 11/29/23 08:37 Dose: 100 mg Trazodone HCl (Trazodone Hcl 50 Mg Tablet) 50 mg PO BEDTIME MRX1 PRN PRN Reason: Insomnia Allergies Allergies Allergy/AdvReac Type Severity Reaction Status Date / Time sertraline [From ZOLOFT] Allergy Mild HEADACHES Verified 05/17/23 20:25 Assessment & Plan Assessment & Plan (1) Alcohol withdrawal: Status: Acute Code(s): F10.939 - Alcohol use, unspecified with withdrawal, unspecified (2) Non-insulin dependent type 2 diabetes mellitus: Status: Acute Code(s): E11.9 - Type 2 diabetes mellitus without complications (3) Suicidal ideation: Status: Acute Code(s): R45.851 - Suicidal ideations (4) Depression, unspecified: Status: Acute Code(s): F32.A - Depression, unspecified Plan 11/28: continue and complete phenobarb detox protocol. restart outpt regimen for psych/medical. allow time to convalesce, then determine dispo. 11/29: seen with SANTOS Rodriguez and principal systems engineer. continue current mgmt. dispo plan for referral to [facility] devised. Reason for continued inpatient stay Substantial Risk for: inability to function and rapid decompensation Time Spent With Patient Time: Total time managing care of this patient today __25__ minutes.
[2023-11-29 18:00] VITALS: BP 110/60; PULSE 63; RESP 17; TEMP 36.6; O2SAT 98
[2023-11-29 19:49] LABS: Glucose, Whole Blood 160 mg/dL (60-115)
[2023-11-29] MEDS: chlorproMAZINE HCl 25 MG TABLET 50 MG PO (19:50)
[2023-11-29] MEDS: traZODone HCL 50 MG TABLET PO (19:56)
[2023-11-30] MEDS: traZODone HCL 50 MG TABLET PO ×2 (02:21→21:15)
[2023-11-30 07:20] VITALS: BP 102/72; PULSE 80; RESP 14; TEMP 36; O2SAT 97
[2023-11-30 08:26] LABS: Glucose, Whole Blood 147 mg/dL (60-115)
[2023-11-30] MEDS: Atorvastatin Calcium 10 MG TABLET PO (08:42)
[2023-11-30] MEDS: Thiamine HCL 100 MG TABLET PO (08:42)
[2023-11-30] MEDS: Magnesium Oxide 400 MG TABLET PO ×2 (08:42→17:36)
[2023-11-30] MEDS: Omeprazole 20 MG CAPSULE.DR PO (08:42)
[2023-11-30] MEDS: metFORMIN HCl 1,000 MG TABLET 1000 MG PO ×2 (08:42→21:15)
[2023-11-30] MEDS: Naltrexone HCl 50 MG TABLET PO (08:42)
[2023-11-30] MEDS: Cyanocobalamin (Vitamin B-12) 1,000 MCG TABLET 1000 MCG PO (08:42)
[2023-11-30] MEDS: lisinopriL 20 MG TABLET PO (08:42)
[2023-11-30] MEDS: FLUoxetine HCl 20 MG CAPSULE 40 MG PO (08:43)
[2023-11-30] MEDS: PHENobarbitaL 30 MG TABLET PO ×2 (08:43→21:15)
--- NOTE | 2023-11-30 14:37 | HO.PSYCHPN ---
Subjective Subjective Date of Service: 11/30/23 Reason For Visit: mental health crisis Interim History: calm, cooperative. had some trouble sleeping due to having gotten thorazine too early, he thinks. thorazine rescheduled for 10 pm. states his mood is improved and he is comfortable discharging . states he does not wish to go to [facility] now, but would rather go to a penitentiary so he can be out and working on his return to [place]. p0er staff, dep/anx 10. taking meals and meds. not attending groups. pleasant. slept about 6 hours with PRN trazodone. Mental Status Exam Mental Status Exam Narrative: calm, cooperative, icelandic speaking only. street clothes, adequately dressed and groomed. no PMA/PMR. cooperative. speech soft and mildly slowed, monotone. thoughts linear and logical, but hard to follow at times. affect constricted, normo-intense, non-labile. mood improved. no SI/SIBI/HI/AVH expressed. Diagnostics Vital Signs (24Hr): Vital Signs - 24 hr 11/29/23 18:00 11/30/23 07:20 Temperature 97.8 F 96.8 F Pulse Rate 63 80 Respiratory Rate 17 14 Blood Pressure 110/60 102/72 Pulse Oximetry 98 97 Oxygen Delivery Method Room Air Room Air BMI result Body Mass Index 26.5 Labs 11/28/23 07:54 Labs: Laboratory Results - last 48 hr 11/29/23 11/30/23 19:44 08:21 POC Glucose 160 H 147 H Medications Medications Current Medications Acetaminophen (Acetaminophen 325 Mg Tablet) 650 mg PO Q6H PRN PRN Reason: Headache/Pain Mild Scale (1-3) Al Hydroxide/Mg Hydroxide (Magnesium Hydrox/Alum Hydrox 30 Ml Oral.Susp) 30 ml PO Q6H PRN PRN Reason: Heartburn/Nausea Atorvastatin Calcium (Atorvastatin Calcium 10 Mg Tablet) 10 mg PO DAILY [facility] Last Admin: 11/30/23 08:42 Dose: 10 mg Chlorpromazine HCl (Chlorpromazine Hcl 25 Mg Tablet) 50 mg PO BEDTIME PRN PRN Reason: insomnia Chlorpromazine HCl (Chlorpromazine Hcl 25 Mg Tablet) 50 mg PO DAILY@2200 [facility] Cyanocobalamin (Cyanocobalamin (Vitamin B-12) 1,000 Mcg Tablet) 1,000 mcg PO DAILY [facility] Last Admin: 11/30/23 08:42 Dose: 1,000 mcg Fluoxetine HCl (Fluoxetine Hcl 20 Mg Capsule) 40 mg PO DAILY [facility] Last Admin: 11/30/23 08:43 Dose: 40 mg Hydroxyzine HCl (Hydroxyzine Hcl 25 Mg Tablet) 25 mg PO Q6H PRN PRN Reason: Anxiety Last Admin: 11/28/23 21:59 Dose: 25 mg Lisinopril (Lisinopril 20 Mg Tablet) 20 mg PO DAILY [facility]; Protocol Last Admin: 11/30/23 08:42 Dose: 20 mg Magnesium Hydroxide (Milk Of Magnesia 30 Ml Oral.Susp) 30 ml PO DAILY PRN PRN Reason: Constipation Magnesium Oxide (Magnesium Oxide 400 Mg Tablet) 400 mg PO BIDPC [facility] Last Admin: 11/30/23 08:42 Dose: 400 mg Metformin HCl (Metformin Hcl 1,000 Mg Tablet) 1,000 mg PO BID [facility] Last Admin: 11/30/23 08:42 Dose: 1,000 mg Naltrexone HCl (Naltrexone Hcl 50 Mg Tablet) 50 mg PO DAILY [facility] Last Admin: 11/30/23 08:42 Dose: 50 mg Nicotine Polacrilex (Nicotine Polacrilex 2 Mg Gum) 4 mg BUCCAL Q2H PRN PRN Reason: Nicotine Cravings Omeprazole (Omeprazole 20 Mg Capsule.Dr) 20 mg PO DAILY [facility] Last Admin: 11/30/23 08:42 Dose: 20 mg Phenobarbital (Phenobarbital 30 Mg Tablet) 30 mg PO DAILY@2100 [facility]; Protocol Stop: 12/01/23 21:01 Thiamine HCl (Thiamine Hcl 100 Mg Tablet) 100 mg PO DAILY [facility] Last Admin: 11/30/23 08:42 Dose: 100 mg Trazodone HCl (Trazodone Hcl 50 Mg Tablet) 50 mg PO BEDTIME MRX1 PRN PRN Reason: Insomnia Last Admin: 11/30/23 02:21 Dose: 50 mg Allergies Allergies Allergy/AdvReac Type Severity Reaction Status Date / Time sertraline [From [facility]] Allergy Mild HEADACHES Verified 05/17/23 20:25 Assessment & Plan Assessment & Plan (1) Alcohol withdrawal: Status: Acute Code(s): F10.939 - Alcohol use, unspecified with withdrawal, unspecified (2) Non-insulin dependent type 2 diabetes mellitus: Status: Acute Code(s): E11.9 - Type 2 diabetes mellitus without complications (3) Suicidal ideation: Status: Acute Code(s): R45.851 - Suicidal ideations (4) Depression, unspecified: Status: Acute Code(s): F32.A - Depression, unspecified Plan 11/28: continue and complete phenobarb detox protocol. restart outpt regimen for psych/medical. allow time to convalesce, then determine dispo. 11/29: seen with SANTOS Rodriguez and special educator. continue current mgmt. dispo plan for referral to [facility] devised. 11/30: as for yesterday aside from dispo plan now to penitentiary, . continue current mgmt, mood improved. Reason for continued inpatient stay Substantial Risk for: rapid decompensation Time Spent With Patient Time: Total time managing care of this patient today __25__ minutes.
[2023-11-30 18:00] VITALS: BP 106/59; PULSE 61; RESP 16; TEMP 36.2; O2SAT 99
[2023-11-30] MEDS: chlorproMAZINE HCl 25 MG TABLET 50 MG PO (21:15)
[2023-11-30 21:26] LABS: Glucose, Whole Blood 109 mg/dL (60-115)
[2023-12-01 07:50] VITALS: BP 119/64; PULSE 75; RESP 16; TEMP 36.1; O2SAT 97
[2023-12-01 07:59] LABS: Glucose, Whole Blood 134 mg/dL (60-115)
[2023-12-01] MEDS: Thiamine HCL 100 MG TABLET PO (08:48)
[2023-12-01] MEDS: Atorvastatin Calcium 10 MG TABLET PO (08:48)
[2023-12-01] MEDS: FLUoxetine HCl 20 MG CAPSULE 40 MG PO (08:48)
[2023-12-01] MEDS: Cyanocobalamin (Vitamin B-12) 1,000 MCG TABLET 1000 MCG PO (08:48)
[2023-12-01] MEDS: metFORMIN HCl 1,000 MG TABLET 1000 MG PO ×2 (08:48→21:14)
[2023-12-01] MEDS: Omeprazole 20 MG CAPSULE.DR PO (08:48)
[2023-12-01] MEDS: lisinopriL 20 MG TABLET PO (08:48)
[2023-12-01] MEDS: Naltrexone HCl 50 MG TABLET PO (08:48)
[2023-12-01] MEDS: Magnesium Oxide 400 MG TABLET PO ×2 (08:48→16:46)
[2023-12-01] MEDS: hydrOXYzine HCL 25 MG TABLET PO (12:02)
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
[2023-12-01 15:57] VITALS: BP 109/81; PULSE 91; RESP 18; TEMP 36.1; O2SAT 96
[2023-12-01 19:55] VITALS: RESP 16
[2023-12-01 21:05] LABS: Glucose, Whole Blood 170 mg/dL (60-115)
[2023-12-01] MEDS: chlorproMAZINE HCl 25 MG TABLET 50 MG PO (21:14)
[2023-12-01] MEDS: traZODone HCL 50 MG TABLET PO (21:14)
[2023-12-01] MEDS: PHENobarbitaL 30 MG TABLET PO (21:14)
[2023-12-02 07:15] VITALS: BP 105/61; PULSE 79; RESP 16; TEMP 36.3; O2SAT 97
[2023-12-02 08:10] LABS: Glucose, Whole Blood 119 mg/dL (60-115)
[2023-12-02] MEDS: Omeprazole 20 MG CAPSULE.DR PO (08:50)
[2023-12-02] MEDS: metFORMIN HCl 1,000 MG TABLET 1000 MG PO (08:50)
[2023-12-02] MEDS: Naltrexone HCl 50 MG TABLET PO (08:50)
[2023-12-02] MEDS: Magnesium Oxide 400 MG TABLET PO (08:50)
[2023-12-02] MEDS: FLUoxetine HCl 20 MG CAPSULE 40 MG PO (08:50)
[2023-12-02] MEDS: lisinopriL 20 MG TABLET PO (08:50)
[2023-12-02] MEDS: Cyanocobalamin (Vitamin B-12) 1,000 MCG TABLET 1000 MCG PO (08:50)
[2023-12-02] MEDS: Atorvastatin Calcium 10 MG TABLET PO (08:50)
[2023-12-02] MEDS: Thiamine HCL 100 MG TABLET PO (08:50)
== END 2023-12-02 11:25 | disposition home or self-care (01) | DRG 881 ==
PROVIDERS: Admitting Provider Psychiatry & Neurology Psychiatry; Visit Provider Psychiatry & Neurology Psychiatry
DX: F32.A Depression, unspecified (principal); R45.851 Suicidal ideations; Z59.02 Unsheltered homelessness; F10.139 Alcohol abuse with withdrawal, unspecified; E78.2 Mixed hyperlipidemia; E11.9 Type 2 diabetes mellitus without complications; I10 Essential (primary) hypertension; Z79.84 Long term (current) use of oral hypoglycemic drugs; Z79.899 Other long term (current) drug therapy
CPT/HCPCS: 36415; 80048; 82947; 83735

== ENCOUNTER → 2023-11-27 21:14 | Outpatient (BNV) | payer OTHER, SELFPAY | PROVIDERS: Admitting Provider Psychiatry & Neurology Psychiatry; Visit Provider Psychiatry & Neurology Psychiatry | DX: F33.2 Major depressive disorder, recurrent severe without psychotic features (principal); R45.851 Suicidal ideations; F10.939 Alcohol use, unspecified with withdrawal, unspecified; E11.9 Type 2 diabetes mellitus without complications | CPT/HCPCS: 90792; 99231; 99232; 99239 ==

== ENCOUNTER 2024-12-07 13:16 | Emergency (ER) | payer MEDICARE, SELFPAY ==
--- NOTE | ~2024-12-07 | CT_ITS ---
EXAMINATION: CT HEAD WITHOUT IV CONTRAST HISTORY: ?witnessed fall. TECHNIQUE: Unenhanced helical CT of the head was performed per standard departmental protocol. Coronal and sagittal reformats of the head were also evaluated. One or more of the following techniques was used for dose reduction: Automated exposure control, adjustment of the mA and/or kV according to patient size, use of iterative reconstruction technique. DLP: 657.55 mGy-cm COMPARISON: Comparison is made with the prior examination dated 11/25/2023. FINDINGS: BRAIN: There is diffuse prominence of the ventricular system and cortical sulci, consistent with atrophy. Periventricular and subcortical white matter hypodensities are noted which are nonspecific, but often seen in the setting of small vessel ischemic disease. There is no mass effect or midline shift. No intra- or extra-axial fluid collections are identified. SINUSES: The visualized paranasal sinuses are clear. The mastoid air cells and middle ear cavities are well pneumatized. ORBITS: The visualized orbits are unremarkable. BONES/SOFT TISSUES: The extracranial soft tissues are unremarkable. The calvarium is intact. No suspicious lytic or sclerotic lesions. CT/CT head/brain wo IV con IMPRESSION: No acute intracranial abnormality. Electronically signed by: Tolu Duggan MD 12/07/2024 03:25 PM [facility]
--- NOTE | ~2024-12-07 | CT_ITS ---
EXAMINATION: CT CERVICAL SPINE WITHOUT IV CONTRAST HISTORY: ?witnessed fall. TECHNIQUE: Helical CT of the cervical spine was performed per standard departmental protocol. Coronal and sagittal reformatted images were also evaluated. One or more of the following techniques was used for dose reduction: Automated exposure control, adjustment of the mA and/or kV according to patient size, use of iterative reconstruction technique. DLP: 300.83 mGy-cm COMPARISON: Comparison is made with the prior examination dated 11/25/2023. FINDINGS: CERVICAL SPINE: The vertebral bodies maintain normal height and alignment without evidence of fracture or subluxation. There is diffuse moderate degenerative disc disease with disc space narrowing and flowing anterior osteophyte formation. Evaluation for disc pathology is limited by lack of intrathecal contrast material, however. BRAIN: The visualized portion of the brain is unremarkable. SINUSES: The visualized paranasal sinuses, mastoid air cells and middle ear cavities are unremarkable. LUNG APICES: The visualized lung apices are clear. SOFT TISSUES: The visualized paraspinal soft tissues are unremarkable. CT/CT cervical spine wo IV con IMPRESSION: No evidence of fracture or malalignment of the cervical spine. Degenerative changes as described. Electronically signed by: Tolu Duggan MD 12/07/2024 03:28 PM [facility]
[2024-12-07 13:57] VITALS: BP 170/80; PULSE 94; O2SAT 99
[2024-12-07 14:23] VITALS: BP 123/62; PULSE 130; RESP 20; TEMP 36.8; O2SAT 96; BMI 23.3
--- NOTE | 2024-12-07 14:28 | PC.NURSE ---
pt changed over into [facility] attire
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
[2024-12-07 15:08] LABS: MANUAL DIFF FLAG NO
[2024-12-07 15:10] LABS: Basophils Absolute Auto 0.1 X10*3/uL (0.0-0.2); Basophils Percent Auto 0.5 % (0-2); Eosinophils Percent Auto 0.2 % (0-4); Hematocrit 41.2 % (42.0-52.0); Hemoglobin 13.9 g/dl (14.0-18.0); Imm Gran Abs Auto 0.05 X10*3/uL (0.00-0.03); Imm Gran Pct Auto 0.4 % (0.0-0.4); Lymphocytes Absolute Auto 2.2 X10*3/uL (1.2-4.9); Lymphocytes Percent Auto 16.5 % (20-40); Mean Corpuscular HGB Conc 33.7 g/dl (31.0-36.0); Mean Corpuscular Hemoglobin 29.5 pg (27.0-33.0); Mean Corpuscular Volume 87.5 fL (80.0-98.0); Mean Platelet Volume 9.1 fL (9.4-12.4); Monocytes Absolute Auto 0.6 X10*3/uL (0.1-1.2); Monocytes Percent Auto 4.6 % (2-11); Neutrophils Absolute Auto 10.1 x10*3/uL (2.0-8.3); Neutrophils Percent Auto 77.8 % (45-73); Platelet Count 278 X10*3/uL (160-400); Red Blood Count 4.71 X10*6/uL (4.60-5.80); Red Cell Distribution Width 13.6 % (11.0-16.0)
[2024-12-07 15:11] LABS: Appearance Urine Clear; Color Urine Yellow; Glucose Urine UA Negative (Negative); Leukocyte Esterase Urine Trace (Negative); Nitrite Urine Negative (Negative); Specific Gravity - Urine <= 1.005 (1.005-1.025); UMIC TRIGGER UACC YES; Urine Blood Negative (Negative); Urine Ketones Negative (Negative); Urine Protein Trace mg/dL (Neg-Trace)
--- NOTE | 2024-12-07 15:11 | ECG_ITS ---
Test Reason : TACHYCARDIA Blood Pressure : */* mmHG Vent. Rate : 116 BPM Atrial Rate : 116 BPM P-R Int : 134 ms QRS Dur : 70 ms QT Int : 318 ms P-R-T Axes : 43 -22 43 degrees QTcB Int : 442 ms Sinus tachycardia Otherwise normal ECG When compared with ECG of 26-Nov-2023 00:05, No significant change was found Referred By: Nevin Alaniz Electronically Signed By: CORINNA HOFFMAN MD
[2024-12-07 15:13] LABS: Bacteria Urine None Seen (None Seen); Hyaline Casts Urine 0-2 /LPF (0-2); RBC Urine 0-2 /HPF (0-2); Squamous Epithelial Cell Urine 0-2 /HPF (0-2); UACC Culture Trigger YES
--- OUTSIDE RECORDS SUMMARY | 2024-12-07 15:18 | XMS_ITS | Encounter Summary ---
Author Organization [employer] Address [address] [place] [address] Care Team Providers Care Internal Control Specialist Name Role Phone Name, Luke LINTON Primary Care Provider [phone] Encounter Details Date Type Department Care Team (Late st Contact Info) Description 11/12/2023 Telephone [facility] [address] [place] [address] Name, MD Luke [address] [place], [place] [phone] Social History Tobacco Use Types Packs/Day Years Used Date Smoking Tobacco: Every Day Cigarettes Smokeless Tobacco: Never Alcohol Use Standard Drinks/Week Comments Not Currently 84 (1 standard drink = 0.6 oz pu re alcohol) 1 liter of Whiskey daily Depression Answer Date Recorded Patient Health Questionnaire-9 Score 5 06/04/2023 Housing Stability Answer Date Recorded What is your housing situation today? I have luzaldair nathan 08/09/[address] you li ve. Do you have problems with any of the following? None of the above 08/09/2023 Food Insecurity Answer Date Recorded Within the past 12 months, y ou worried that your food would run out before you got money to buy more: Sometimes True 2022 Within the past 12 months,th e food you bought just didn't last and you didn't have enough money to get more: Sometimes True 08/09/2023 Transportation Answer Date Recorded In the past 12 months, has l ack of transportation kept you from medical appts, meetings, work or from getting things needed for daily living? No 08/09/2023 Utilities Answer Date Recorded In the past 12 months, has t he electric, gas, oil or water company threatened to shut off services in your home? No 08/09/2023 Depression Answer Date Recorded Patient Health Questionnaire-2 Score 1 06/04/2023 Sex and Gender Information Value Date Recorded Sex Assigned at Male 08/24/2022 10:19 AM EDT Legal Sex Male 10:19 AM EDT Gender Identity Male 08/24/2022 10:19 AM EDT Sexual Orientation Straight 08/24/2022 10 :19 AM EDT documented as of this encounter Plan of Treatment Not on file documented as of this encounter Visit Diagnoses Not on filedocumented in this encounter Additional Health Concerns Assessment Noted Time PHQ-9 Depression Total Score: 5 06/04/20 23 3:39 PM EDT documented as of this encounter Care Teams Internal Control Specialist Relationship Specialty Start Date End Date Name, MD Luke [address] [place] [address] PCP - General Family Medicine 08/30/19 documented as of this encounter
--- OUTSIDE RECORDS SUMMARY | 2024-12-07 15:18 | XMS_ITS | Clinical Summary ---
Author Organization [email or web address] Address [address] [facility] [address] [place] [address] Care Team Providers Care Transfer Car Operator Drier Name Role Phone Name, Luke LINTON Primary Care Provider [phone] Allergies Active Allergy Reactions Criticality Noted Date Comments Sertraline Anxiety High 11/26/2021 Medications * This document contains information received from the source organization and may not represent a complete record from that organization. thiamine (Vitamin B-1) 100 MG tablet 03/09/20 23 Active Multiple Vitamin (Therems) tablet 03/09/20 23 Active folic acid (Folvite) 1 MG tablet 03/09/20 23 Active docusate sodium (Colace) 100 MG capsule 03/09/20 23 Active naltrexone ER (Vivitrol) injectionIndicat ions:Alcohol use disorder, severe, dependence (CMS/HCC) Inject 4 mL (380 mg) into the shoulder, thigh, or buttocks every 28 (twenty-eight) days for 3 doses. 4 mL 2 06/16/20 23 Active fluPHENAZine (Prolixin) 2.5 MG tablet 04/14/20 23 Active hydrOXYzine pamoate (Vistaril) 50 MG capsule Take 50 mg by mouth every 6 (six) hours if needed for anxiety. 07/08/20 23 Active Blood Glucose Monitoring Suppl (FreeStyle Lite) w/Device kit 1 each See administration instructions. Use once a day 1 kit 07/21/20 23 Active pantoprazole (ProtoNix) 40 MG EC tablet Take 1 tablet (40 mg) by mouth before breakfast. 90 tablet 09/02/20 23 Active diphenhydrAMINE (Banophen) 50 MG capsuleIndicatio ns:Benign hypertension TAKE 1 CAPSULE BY MOUTH DAILY AT BEDTIME 30 capsule 10/19/20 23 Active cyanocobalamin (Vitamin B-12) 1000 MCG tabletIndication s:Alcohol abuse TAKE 1 TABLET BY MOUTH DAILY IN THE MORNING 30 tablet 10/19/20 23 Active lisinopril 20 MG tabletIndication s:Benign hypertension TAKE 1 TABLET BY MOUTH DAILY IN THE MORNING 30 tablet 10/19/20 23 Active simvastatin (Zocor) 20 MG tabletIndication s:Alcohol abuse TAKE 1 TABLET BY MOUTH DAILY IN THE MORNING 30 tablet 10/19/20 23 Active chlorproMAZINE (Thorazine) 25 MG tablet Take 25 mg by mouth at bedtime. 10/06/20 23 Active melatonin 5 MG tablet TAKE 2 TABLETS BY MOUTH EVERY DAY WITH DINNER 08/11/20 23 Active FLUoxetine (PROzac) 10 MG capsule Take 30 mg by mouth in the morning. Active metFORMIN (Glucophage) 500 MG tablet Take 500 mg by mouth with breakfast and with evening meal. 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 Depressive disorder 04/07/2012 Benign hypertension 04/06/2012 Diabetes mellitus type 2, uncomplicated 02/10/20 12 Personality disorder 11/15/2007 Alcohol dependence with withdrawal 11/15/2007 Schizophrenia 11/15/2007 Immunizations Name Administration Dates Next Due Hep A / Hep B 11/05/2009,09/17/2009 Influenza Quadrivalent Adjuvanted 10/15/2022 Influenza injectable quadriv alent IIV4 with preservative 07/20/2017,10/06/2016 Influenza injectable quadriv alent preservative free 07/21/2023,08/31/2021,07/25/2021 Influenza, IIV3, injectable 08/08/2010 Theresa SARS-CoV-2 Vaccination 10/09/2021 MMR 10/28/2007 Pfizer Covid-19 Vaccine 12+ 05/08/2021, Pneumococcal Conjugate PCV 20 10/12/2023 Pneumococcal Polysaccharide PPSV23 04/05/2018, Pneumococcal, Unspecified 05/17/2009 TD (adult), 2 Lf tetanus tox oid, preservative free, adsorbed 11/28/2007 Tdap 05/27/2022,10/06/2016 Social History Tobacco Use Types Packs/Day Years Used Date Smoking Tobacco: Every Day Cigarettes Smokeless Tobacco: Never Tobacco Cessation:Ready to Q uit: Not Asked; Counseling Given: Not Answered Alcohol Use Standard Drinks/Week Comments Not Currently 84 (1 standard drink = 0.6 oz pu re alcohol) 1 liter of Whiskey daily Depression Answer Date Recorded Patient Health Questionnaire-9 Score 5 06/04/2023 Housing Stability Answer Date Recorded What is your housing situation today? I have luz nathan 08/09/[address] you [...] Orientation Straight 08/24/2022 10 :19 AM EDT Last Filed Vital Signs Vital Sign Reading Time Taken Comments Blood Pressure 130/78 10/12/2023 1:05 PM EST Pulse 96 10/12/2023 1:05 PM EST Temperature 36.4 ??C (97.5 ??F) 10/12/2023 1:05 PM ES T Respiratory Rate 20 10/12/2023 1:05 PM EST Oxygen Saturation 95% 10/12/2023 1:05 PM EST Inhaled Oxygen Concentration - - Weight 81.8 kg (180 lb 6.4 oz) 10/12/2023 1:05 P M EST Height 167.6 cm (5' 6 ) 10/12/2023 1:05 PM EST Body Mass Index 29.12 10/12/2023 1:05 PM EST Plan of Treatment Health Maintenance Due Date Last Done Comments CT Colonography 1960 Colonoscopy 1960 Colorectal Cancer Screening 1960 FIT DNA/Cologuard 1960 FIT 1960 FOBT 1960 Sigmoidoscopy 1960 Alcohol/Substance Use Screening 1972 Hepatitis A Vaccines (3 of 3 - Hep A Twinrix risk 3-dose series) 04/05/2010 11/05/2009, 09/17/2009 Hepatitis B Vaccines (3 of 3 - Hep B Twinrix 3-dose series) 04/05/2010 11/05/2009, 09/17/2009 Zoster Vaccines (1 of 2) 2010 Diabetes: Hemoglobin A1C 10/20/2023 07/21/2023, 06/0 04/2023 Diabetes: Urine Protein Screening 04/05/2024 04/05/2023, 01/09/2022 Lipid Panel 04/05/2024 04/05/2023, 01/09/2022 Depression Screening 06/04/2024 06/04/2023, 06/04/20 23 SDOH Screening 06/04/2024 06/04/2023 COVID-19 Vaccine ( season) 2024 11/04/2022, 10/09/2021, 05/08/2021, Additional history exists Influenza Vaccine (#1) 2024 , 10/15/2022, 08/31/2021, Additional history exists Diabetes: Foot Exam 10/12/2024 10/12/2023, 10/12/2023, 10/12/2023, Additional history exists Tobacco Screening 10/12/2024 10/12/2023 Eye Exam 03/30/2025 03/30/2023, 06/0 03/2023, 03/30/2023, Additional history exists DTaP/Tdap/Td Vaccines (3 - Td or Tdap) 05/27/2032 05/27/2022, 10/06/2016, 11/28/2007 RSV Patients and Patients Aged 60 years or older (1 - 1-dose 75+ series) 2035 HIV Screening Completed 06/07/2023 Hepatitis C Screening Completed 06/07/2023 Pneumococcal Vaccine: 50+ Years Completed 10/12/2023, 04/05/2018, 05/17/2009, Additional history exists HIB Vaccines Aged Out No longer eligi ble based on patient's age to complete this topic HPV Vaccines Aged Out No longer eligi ble based on patient's age to complete this topic IPV Vaccines Aged Out No longer eligi ble based on patient's age to complete this topic Meningococcal Vaccine Aged Out No sky marilyn eligible based on patient's age to complete this topic RSV under 20 months Aged Out No longe r eligible based on patient's age to complete this topic Rotavirus Vaccines Aged Out No longer eligible based on patient's age to complete this topic Procedures Procedure Name Priority Date/Time Associated Diagnosis Comments POCT GLYCATED HEMOGLOBIN, TOTAL Routine 07/21/2023 11:39 AM EDT Type 2 diabetes mellitus without complication, without long-term current use of insulin (CMS/HCC) HEPATITIS C ANTIBODY Routine 06/07/2023 12:55 PM EDT Alcohol use disorder, severe, dependence (CMS/HCC) HIV ANTIBODY/ANTIGEN ([place] [facility]) Routine 06/07/2023 12:55 PM EDT ALBUMIN, RANDOM URINE W/CREATININE Routine 04/05/2023 10:26 AM EDT PE (physical exam), annual Type 2 diabetes mellitus without complication, without long-term current use of insulin (CMS/HCC) Screening for prostate cancer Schizoaffective disorder, bipolar type (CMS/HCC) LIPID PANEL, STANDARD Routine 04/05/2023 10:26 AM EDT PE (physical exam), annual Type 2 diabetes mellitus without complication, without long-term current use of insulin (CMS/HCC) Screening for prostate cancer Schizoaffective disorder, bipolar type (CMS/HCC) from Last 3 Months or Most Recently Relevant to Health Maintenance Results * (ABNORMAL) POCT A1C (07/21/2023 11:39 AM EDT) Pathologist [facility] Hemoglobin A1C 6.9(A) 4.0 - 6.0 % Other 07/21/2023 11:3 9 AM EDT Luke Stewart MD POINT OF CARE TEST ENTER/EDIT OR DERABLES Final Result * Hepatitis C Ab (06/07/2023 12:55 PM EDT) Pathologist [facility] Hepatitis C Antibody Nonreactive Nonreactive [facility] Comment:Antibodies to HCV no t detected; does not exclude early acuteHCV infection. Blood 06/07/2023 12:5 5 PM EDT 06/07/2023 5:44 PM EDT Erickson Gonzalez MD LAB BLOOD ORDERABLES Final Resul t [facility] [address] [place] [phone] * HIV Ab/Ag ([facility]) (06/07/2023 12:55 PM EDT) [facility] HIV AB/AG Nonreactive Nonreactive [facility] Comment:HIV-1 p24 Ag and/or HIV-1/HIV-2 Ab not detected.A test result that is nonreactive does not exclude thepossibility of exposure to or infection with HIV-1 and/orHIV-2. Nonreactive results in this assay for individualswith prior exposure to HIV-1 and/or HIV-2 may be due toantigen and antibody levels that are below the limit ofdetection of this assay.The [employer] HIV Ag/Ab Combo assay result andsupplemental assay results should be interpreted inconjunction with the patient's clinical presentation,history and other laboratory results. If the results areinconsistent with clinical evidence, additional testing issuggested to confirm the result. 06/07/2023 12:5 5 PM EDT 06/07/2023 5:44 PM EDT Erickson Gonzalez MD LAB BLOOD ORDERABLES Final Resul t Performing Organization Address [facility] Co de Phone Number [facility] [address] [place] [phone] * Albumin, Random Urine W/Creatinine (04/05/2023 10:26 AM EDT) Creatinine, Random Urine 241 20 - 320 mg/dL [facility] Albumin, Urine 4.5 See Note: mg/dL [facility] Comment: Reference Range: Reference Range Not established Albumin/Creatinin e Ratio, Random Urine 19 <30 mcg/mg creat [facility] Comment: The ADA defines abnormalities in albumin excretion as follows: Albuminuria Category ?Result (mcg/mg creatinine) Normal to Mildly increased ?? <30 Moderately increased ? 30-299 Severely increased ? > OR = 300 The ADA recommends that at least two of three specimens collected within a 3-6 month period be abnormal before considering a patient to be within a diagnostic category. 04/05/2023 10:2 6 AM EDT 04/05/2023 10:27 AM EDT Luke Stewart MD LAB URINE ORDERABLES Final Resul t Performing Organization Address City/[facility]/ZIP Co de Phone Number [facility] [address], [place] [address] [facility] [address] [place] [address] * Lipid Panel, Standard (04/05/2023 10:26 AM EDT) Cholesterol, Total 142 <200 mg/dL [facility] HDL Cholesterol 45 > OR = 40 mg/dL [facility] Triglycerides 123 <150 mg/dL [facility] LDL Cholesterol 77 mg/dL (calc) [facility] Comment: Reference range: <100 Desirable range <100 mg/dL for primary prevention; ?? <70 mg/dL for patients with CHD or diabetic patients with > or = 2 CHD risk factors. LDL-C is now calculated using the Elena calculation, which is a validated novel method providing better accuracy than the Friedewald equation in the estimation of LDL-C. Joseph SS et al. CAR. 2013;310(19): 1350-9310 (http://education.Videolla/faq/ALG706) Chol/HDLC Ratio 3.2 <5.0 (calc) [facility] Non-HDL Cholesterol 97 <130 mg/dL (calc) [facility] Comment: For patients with diabetes plus 1 major ASCVD risk factor, treating to a non-HDL-C goal of <100 mg/dL (LDL-C of <70 mg/dL) is considered a therapeutic option. Blood Venous blood specimen / Unknown 04/05/2023 10:26 AM EDT 04/05/2023 10:27 AM EDT us Luke Stewart MD LAB BLOOD ORDERABLES Final Resul t [facility] [address], [place] [address] [facility] [address] [place] [address] from Last 3 Months or Most Recently Relevant to Health Maintenance [place] [address] [place] [address] - [employer] Care Teams Transfer Car Operator Drier Relationship Specialty Start Date End Date Name, MD Luke [address] [place] [phone] PCP - General Family Medicine 08/30/19
--- OUTSIDE RECORDS SUMMARY | 2024-12-07 15:18 | XMS_ITS | Encounter Summary ---
Author Organization [employer] Address [address] [facility] 7t [place] [address] Care Team Providers Care Welder Plasma Arc Name Role Phone Name, Luke LINTON Primary Care Provider [phone] Encounter Details Date Type Department Care Team (Late st Contact Info) Description 06/07/2023 Abstract [facility] MEDICINE [address] [place] [address] Name, MD Luke [address] [place] [address] Social History Tobacco Use Types Packs/Day Years Used Date Smoking Tobacco: Every Day Cigarettes Smokeless Tobacco: Never Alcohol Use Standard Drinks/Week Comments Yes 84 (1 standard drink = 0.6 oz pu re alcohol) 1 liter of Whiskey daily Depression Answer Date Recorded Patient Health Questionnaire-9 Score 5 06/04/2023 Depression Answer Date Recorded Patient Health Questionnaire-2 [...] documented as of this encounter Care Teams Welder Plasma Arc Relationship Specialty Start Date End Date Name, MD Luke [address] [place] [address] PCP - General Family Medicine 08/30/19 documented as of this encounter
--- OUTSIDE RECORDS SUMMARY | 2024-12-07 15:18 | XMS_ITS | Encounter Summary ---
Author Organization [employer] Address [address] [facility] 7t [place] [address] Care Team Providers Care Truck Crane Operator Name Role Phone Name, Luke LINTON Primary Care Provider [phone] Reason for Visit * Reason Onset Date Comments Med Refill 08/09/2023 Encounter Details Date Type Department Care Team ([facility] st Contact Info) Description 08/09/2023 Telephone [facility] MEDICINE [address] [place] [address] Name, MD Luke [address] [place], [place] [phone] Med Refill Social History Tobacco Use Types Packs/Day Years [...] AM EDT documented as of this encounter Miscellaneous Notes * Telephone Encounter - Pedro Garza RN - 08/16/2023 9:26 AM EDT Meds. Que for approval. * Telephone Encounter - Yadira Cortez - 08/09/2023 8:38 AM EDT Tc from pt requesting a refill for Lisinopril 20 mg, Vitamin B 12, simvastatin 20 mg, Banophen 50 mg, and fluoxetine 20 mg , pt stated medication were prescribed at [facility] crisis program. Manager Freelance does not see any current scripts. Please contact at [phone] Liberian documented in this encounter Plan of Treatment Not on file documented as of this encounter Visit Diagnoses Not on filedocumented in this encounter Additional Health Concerns Assessment Noted Time PHQ-9 Depression Total Score: 5 06/04/20 23 3:39 PM EDT documented as of this encounter Care Teams Truck Crane Operator Relationship Specialty Start Date End Date Name, MD Luke [address] [place] [phone] PCP - General Family Medicine 08/30/19 documented as of this encounter
--- OUTSIDE RECORDS SUMMARY | 2024-12-07 15:18 | XMS_ITS | Encounter Summary ---
Author Organization [employer] [facility] Address [address] [facility] [address] [place] [address] Care Team Providers Care Quartz Mounter Name Role Phone Name, Luke LINTON Primary Care Provider [phone] Reason for Visit * Reason Onset Date Comments triage 03/19/2023 Encounter Details Date Type Department Care Team ([facility] st Contact Info) Description 03/19/2023 Telephone [facility] MEDICINE [address] [place] [address] Name, MD Luke [address] [place], [place] [phone] triage Social History Tobacco Use Types Packs/Day Years Used Date Smoking Tobacco: Never Assessed Sex and Gender Information Value Date Recorded Sex Assigned at Male 08/24/2022 10:19 AM EDT Legal Sex Male 10:19 AM EDT Gender Identity Male 08/24/2022 10:19 AM EDT Sexual Orientation Straight 08/24/2022 10 :19 AM EDT documented as of this encounter Miscellaneous Notes * Telephone Encounter - Abby Arana RN - 03/19/2023 12:01 PM EDT Triage call with [employer] Super[place] [id number] Pt reports that a new medication is causing shakiness and anxiety. Pt doesn't know what the medication is because all the meds come in a box. tool maintenance worker Rand got on the phone with Pt standing by and describes the medication as fluphenazine. Pt was seen in ED 03/17 with dx of tremor, drug induced a kathisia. Pt is advised to seek evaluation in ED at this time due to medication side effects. tool maintenance worker agrees with disposition. Protocol Used: No Protocol Available (Adult) Protocol-Based Disposition: Go to ED/UCC Now (or to Office with PCP Approval) Positive Triage Question: * Nursing judgment * All higher-acuity triage questions were negative Care Advice Discussed: * Reasons To Call Back - New symptoms develop - You become worse * Telephone Encounter - Rush Byron - 03/19/2023 10:39 AM EDT Symptom: Medication Reaction Outcome: Schedule an urgent appointment (within 1 hour) or talk to a nurse or provider soon Reason: Caller denied all higher acuity questions The caller accepted this outcome Please contact pt at [phone] documented in this encounter Plan of Treatment Not on file documented as of this encounter Visit Diagnoses Not on filedocumented in this encounter Care Teams Quartz Mounter Relationship Specialty Start Date End Date Name, MD Luke [address] [place] [phone] PCP - General Family Medicine 08/30/19 documented as of this encounter
--- OUTSIDE RECORDS SUMMARY | 2024-12-07 15:18 | XMS_ITS | Encounter Summary ---
Author Organization [employer] Address [address] [facility] [address] [place] [address] Care Team Providers Care Distribution Systems Serviceperson Name Role Phone Name, Lkue LINTON Primary Care Provider [phone] Encounter Details Date Type Department Care Team (Late st Contact Info) Description 2023 Orders Only [facility] MEDICINE [address] [place], [place] [phone] Name, MD Luke [address] [place], [place] [phone] Social History Tobacco Use Types Packs/Day Years [...] documented as of this encounter Care Teams Distribution Systems Serviceperson Relationship Specialty Start Date End Date Name, MD Luke [address] [place] [address] PCP - General Family Medicine 08/30/19 documented as of this encounter
[2024-12-07 15:19] LABS: INTERNATIONAL NORM RATIO 1.1 (0.9-1.1)
[2024-12-07 15:20] LABS: Amphetamine Screen Urine Not Detected (Not Detect); Barbiturates, Urine Not Detected (Not Detect); Benzodiazepines Screen Urine Not Detected (Not Detect); Buprenorphine Scr Not Detected (Not Detect); Cannabinoid Screen Urine POSITIVE (Not Detect); Cocaine Screen Urine Not Detected (Not Detect); Fentanyl, urine Not Detected (Not Detect); Methadone Screen, Urine Not Detected (Not Detect); Opiate Screen Urine Not Detected (Not Detect); Oxycodone Screen Urine Not Detected (Not Detect); Phencyclidine Screen Urine Not Detected (Not Detect)
[2024-12-07 15:41] LABS: Alanine Aminotransferase 17 U/L (0-40); Albumin Level 4.5 g/dL (3.5-5.0); Anion Gap 15 (12-20); Aspartate Amino Transferase 27 U/L (5-37); Bilirubin Direct < 0.2 mg/dL (0.0-0.5); Bilirubin Total 0.2 mg/dL (0.0-1.0); Blood Urea Nitrogen 10 mg/dL (9-16); Calcium 9.3 mg/dL (8.4-10.2); Carbon Dioxide 28 mmol/L (22-29); Chloride 110 mmol/L (96-108); Estimated Glomerular Filt Rate > 60; Ethanol 257 mg/dL; Glucose Random 106 mg/dL (60-115); Lipase 23 U/L (8-78); Magnesium 1.4 mg/dL (1.6-2.6); Potassium 4.7 mmol/L (3.3-5.1); Sodium 148 mmol/L (135-145); Total Protein 7.9 g/dL (6.5-8.0)
[2024-12-07] MEDS: cefuroxime axetiL 250 MG TABLET PO (15:48)
[2024-12-07 15:56] LABS: Influenza A PCR NEGATIVE (Negative); Influenza B PCR NEGATIVE (Negative); Resp Syncy Virus RNA Qual PCR NEGATIVE (Negative); SARS COV2 PCR INHOUSE NEGATIVE (Negative)
[2024-12-07 16:07] VITALS: BP 109/70; PULSE 116; RESP 14; TEMP 36.8; O2SAT 96
[2024-12-07] MEDS: Magnesium Sulfate/H2O 2 GM/50 ML PIGGYBACK IV (16:09)
[2024-12-07 16:12] VITALS: PULSE 105
[2024-12-07 17:38] LABS: Alkaline Phosphatase 57 U/L (39-117)
--- NOTE | 2024-12-07 18:08 | PC.NURSE ---
pt currently denies si/hi, calm and cooperative
[2024-12-07 18:10] VITALS: BP 123/82; PULSE 107; RESP 19; TEMP 36.9; O2SAT 94
[2024-12-07 18:44] VITALS: BP 123/82; PULSE 107; RESP 19; TEMP 36.9; O2SAT 94
--- NOTE | 2024-12-07 18:44 | PC.NURSE ---
pt found a sober ride they are coming to pick him up
== END 2024-12-07 18:45 | disposition home or self-care (01) ==
PROVIDERS: Physician Assistant; Emergency Provider Emergency Medicine Emergency Medical Services
DX: S09.90XA Unspecified injury of head, initial encounter (principal); F10.129 Alcohol abuse with intoxication, unspecified; E83.42 Hypomagnesemia; N39.0 Urinary tract infection, site not specified; M54.2 Cervicalgia; R51.9 Headache, unspecified; R00.0 Tachycardia, unspecified; W18.30XA Fall on same level, unspecified, initial encounter; Y93.9 Activity, unspecified; Y92.9 Unspecified place or not applicable; Y99.8 Other external cause status; Z79.899 Other long term (current) drug therapy; Z03.818 Encounter for observation for suspected exposure to other biological agents ruled out; Z51.81 Encounter for therapeutic drug level monitoring; Y90.8 Blood alcohol level of 240 mg/100 ml or more
CPT/HCPCS: 0241U; 36415; 70450; 72125; 80048; 80076; 80307; 81001; 83690; 83735; 85025; 85610; 87086; 93005; 96365; 96366; 99285; J3475

== ENCOUNTER → 2024-12-07 14:20 | Outpatient (BNV) | payer MEDICARE, SELFPAY | PROVIDERS: Emergency Provider Emergency Medicine Emergency Medical Services; Visit Provider Radiology Diagnostic Radiology | DX: M50.30 Other cervical disc degeneration, unspecified cervical region (principal); G31.9 Degenerative disease of nervous system, unspecified | CPT/HCPCS: 70450; 72125 ==

== ENCOUNTER → 2024-12-07 15:11 | Outpatient (BNV) | payer MEDICARE, SELFPAY | PROVIDERS: Emergency Provider Emergency Medicine Emergency Medical Services; Visit Provider Internal Medicine Cardiovascular Disease | DX: R00.0 Tachycardia, unspecified (principal) | CPT/HCPCS: 93010 ==